=== PATIENT | male | born 1965 | race Caucasian/White ===

== ENCOUNTER 2022-11-27 16:46 | Inpatient (IN) ==
[2022-11-27] MEDS ORDERED: SODIUM CHLORIDE 0.9% 1000ML 1,000 ML IV STA (17:12)
[2022-11-27 17:23] LABS: Basophils # (auto) 0.01 K/uL (0-0.2); Basophils % (auto) 0.1 %; Hematocrit (blood only) 47.1 % (42.0-52.0); Hemoglobin 15.7 g/dl (14.0-18.0); Immature Granulocytes # (auto) 0.04 K/uL (0.01-0.20); Immature Granulocytes % (auto) 0.5 %; Lymphocytes % (auto) 9.1 %; Mean Corpuscular Hemoglobin 30.4 pg (25.0-34.0); Mean Corpuscular Hgb Conc 33.3 g/dL (32.0-36.0); Mean Corpuscular Volume 91.3 fL (80.0-100.0); Mean Platelet Volume 12.3 fL (9.4-12.4); Monocytes # (auto) 0.52 K/uL (0.11-0.59); Monocytes % (auto) 5.9 %; Neutrophils # (auto) 7.38 K/uL (1.40-6.50); Neutrophils % (auto) 84.4 %; Platelet Count 190 K/uL (130-400); RDW Coefficient of Variation 14.3 % (11.5-14.5); Red Blood Count 5.16 M/uL (4.70-6.10); White Blood Count 8.75 K/ul (4.8-10.8)
[2022-11-27 17:39] LABS: iSTAT Creatinine 2.1 mg/dl (0.6-1.3); iSTAT Hemoglobin 16.7 g/dl (14.0-18.0); iSTAT Ionized Calcium 1.25 mmol/l (1.12-1.32); iSTAT Potassium 4.5 mmol/L (3.3-5.0)
[2022-11-27] MEDS ORDERED: MoRPHine SULFATE 4 MG/ML 1 ML CARP\\VIAL IV STA (17:45)
[2022-11-27] MEDS ORDERED: ONDANSETRON INJ 2 MG/ML 2 ML VIAL IV STA (17:45)
[2022-11-27] MEDS ORDERED: PIPERACILLIN/TAZOBACTAM 4.5 GM/120 ML BAG IV ONE (17:45)
[2022-11-27 17:46] LABS: Albumin Level 4.4 gm/dl (3.4-5.0); Bilirubin,Total 1.1 mg/dl (0.2-1.0); Calcium 10.3 mg/dl (8.5-10.1); Potassium 4.5 mmol/L (3.5-5.1)
[2022-11-27 17:52] LABS: Albumin Globulin Ratio 1.5 (0.9-2); BUN Creatinine Ratio 23.5 (10-20); Creatinine Clr Calc Pharmacy 50.4 ml/min; Est GFR (African American) 47.4 ml/min; Est GFR (Non-African American) 40.9 ml/min; Total Protein 7.4 gm/dl (6.0-8.3)
--- NOTE | 2022-11-27 17:52 | Emergency Department Note ---
Impression & Plan Incarcerated ventral hernia, SBO (small bowel obstruction), OLEKSANDR (acute kidney injury) ED Provider Note NAME: JUAN FRANCISCO [id number] FOREST AGE: 56 SEX: M : 1965 ARRIVES VIA: Ambulance INFORMANT: Patient, ED PROVIDER(S): Rosalio Romero DO CHIEF COMPLAINT: Abdominal pain HPI: The patient is a 56-year-old male who presented to the emergency department for an evaluation of abdominal pain nausea vomiting. The patient states the pain began today. He has a history of an abdominal wall hernia on the right upper quadrant. This is been present for many years. He states over the last 24 hours he has been unable to reduce the hernia. He states he is normally able to reduce the hernia on his own. He was sent to the emergency department from [facility]. He denies having any fever. He denies having any hematemesis. ROS: See above HPI for pertinent positives & negatives. A total of 10 systems reviewed and were otherwise negative. PAST MEDICAL HISTORY: See Below PAST SURGICAL HISTORY: See Below FAMILY HISTORY: See Below SOCIAL HISTORY: See Below HOME MEDICATIONS: See Below ALLERGIES: See Below VITALS: See Below PHYSICAL EXAMINATION: GENERAL: The patient is awake and alert. He appears somewhat uncomfortable. EYES: The conjunctivae are clear. The pupils are round and reactive. EARS, NOSE, MOUTH AND THROAT: The nose is without any evidence of any deformity. NECK: The neck is nontender and supple. RESPIRATORY: Normal respiratory effort is noted there is no evidence of wheezing rhonchi or rales CARDIOVASCULAR: Regular rate and rhythm noted there no murmurs rubs or gallops normal S1 normal S2. GASTROINTESTINAL: The abdomen is soft but mildly distended. There is a nonreducible hernia in the right upper quadrant. This is very tender. There is no overlying skin changes. MUSCULOSKELETAL/EXTREMITIES: There is no evidence of gross deformity full range of motion is noted in the hips and shoulders. SKIN: There is no obvious evidence of any rash. There are no petechiae, pallor or cyanosis noted. NEUROLOGIC: Patient is awake alert and oriented x3 MEDICAL DECISION MAKING: The patient is a 56-year-old male who presented to the emergency department for an evaluation of abdominal pain nausea vomiting. The patient noticed upper abdominal pain in an area where he has a known ventral wall hernia. He has been able to reduce the hernia. The patient states he has had the hernia unable to be reduced for 24 hours. The patient had a history of physical exam consistent with incarcerated hernia. This was illustrated on CT of the abdomen and pelvis. He was treated with IV fluids and IV pain medication. He was also given IV antibiotics. An NG tube was placed after CT showed signs of high-grade small bowel obstruction. After he was medicated with pain medication I was able to reduce the hernia with gentle pressure. I discussed patient's condition with the on-call general surgeon as well as the on-call [facility] hospitalist. They have agreed to evaluate the patient in the emergency department for further management and disposition. Triage Nursing notes reviewed. Prior medical records reviewed Vital Signs: reviewed and remarkable for no significant abnormalities Differential diagnosis: Etiologies such as appendicitis, diverticulitis, obstruction, inflammatory bowel disease, renal colic, PUD, biliary pathology, pancreatitis, mesenteric ischemia, aortic pathology, infections, genitourinary, UTI, perforated viscus, as well as others were entertained. ER treatment provided: See below Diagnostics interpreted by me: ECG: none Cardiac Monitoring: An order was placed for continuous cardiac monitoring. The monitor shows a rate of 70 bpm with sinus rhythm. Laboratory studies: As stated above and show below. Imaging studies: See below. Radiographic imaging was reviewed by myself Consultation(s): I discussed this case with Dr. Ledesma who is on-call for the general surgical group. I discussed this case with Marko who is on for the [facility] Hospitalist group. ED COURSE: Procedures: After the patient received IV pain medication he was laying in the supine position. Pressure was applied against the hernia. There was a reduction noted of the hernia. The patient still has continued pain. X-ray for NG tube placement is pending. Past Med/Surg History Surgical History History of cholecystectomy Social History Smoking Status: Former smoker Preferred Language: Belarusian Feels Safe at Home: Yes Allergies Allergies Allergy/AdvReac Type Severity Reaction Status Date / Time No Known Allergies Allergy Unverified 11/27/22 19:48 Home Meds Home Medications Medication Instructions Recorded Confirmed Crestor 5 mg PO DAILY 11/27/22 11/27/22 carvedilol 12.5 mg tablet 12.5 mg PO BID 11/27/22 11/27/22 chlorthalidone 50 mg tablet 50 mg PO DAILY 11/27/22 11/27/22 lisinopril 40 mg tablet 40 mg PO DAILY 11/27/22 11/27/22 omeprazole 40 mg capsule,delayed 40 mg PO DAILY 11/27/22 11/27/22 release potassium chloride 20 mEq 20 meq PO BID 11/27/22 11/27/22 tablet,extended release(part/cryst) Results & Data (ED) Vital Signs Vital Signs - 24 hr 11/27/22 17:02 11/27/22 17:00 11/27/22 18:00 Temperature 37.0 C Temperature Source Oral Pulse Rate 70 70 69 Pulse Rate from SpO2 Sensor 69 68 Respiratory Rate 18 20 18 Respiratory Depth Normal Blood Pressure 107/83 107/83 121/76 Blood Pressure Mean 91 91 91 Pulse Oximetry 96 94 84 L Oxygen Delivery Method Room Air Room Air Oxygen Flow Rate Sepsis Recent Fever Within 48 Hours No Sepsis New/Unexplained Change in Mental Status N/A Sepsis Action Taken by Nursing No Action Required 11/27/22 18:05 11/27/22 18:30 11/27/22 19:27 Temperature Temperature Source Pulse Rate 70 Pulse Rate from SpO2 Sensor 70 Respiratory Rate 24 16 Respiratory Depth Blood Pressure 118/77 Blood Pressure Mean 90 Pulse Oximetry 95 93 97 Oxygen Delivery Method Nasal Cannula Nasal Cannula Nasal Cannula Oxygen Flow Rate 2 2 2 Sepsis Recent Fever Within 48 Hours Sepsis New/Unexplained Change in Mental Status Sepsis Action Taken by Jail Medications Current Medication List: was personally reviewed by me Laboratory Data Attestation: I reviewed the patient's lab results. 11/27/22 17:00 11/27/22 17:00 Lab Results 11/27/22 11/27/22 11/27/22 Range/Units 17:00 17:00 17:26 WBC 8.75 (4.8-10.8) K/ul RBC 5.16 (4.70-6.10) M/uL Hgb 15.7 (14.0-18.0) g/dl POC Hgb 16.7 (14.0-18.0) g/dl Hct 47.1 (42.0-52.0) % POC Hct 49 (42-52) % MCV 91.3 (80.0-100.0) fL MCH 30.4 (25.0-34.0) pg MCHC 33.3 (32.0-36.0) g/dL RDW Std Deviation 48.0 H (36.4-46.3) fL RDW Coeff of Chivo 14.3 (11.5-14.5) % Plt Count 190 (130-400) K/uL MPV 12.3 (9.4-12.4) fL Immature Gran % (Auto) 0.5 % Neut % (Auto) 84.4 % Lymph % (Auto) 9.1 % Arthur % (Auto) 5.9 % Eos % (Auto) 0.0 % Baso % (Auto) 0.1 % Neut # (Auto) 7.38 H (1.40-6.50) K/uL Lymph # (Auto) 0.80 L (1.2-3.4) K/uL Arthur # (Auto) 0.52 (0.11-0.59) K/uL Eos # (Auto) 0.00 (0-0.50) K/uL Baso # (Auto) 0.01 (0-0.2) K/uL Immature Gran # (Auto) 0.04 (0.01-0.20) K/uL POC Sodium 138 (135-144) mmol/L Sodium 137 (136-145) mmol/L POC Potassium 4.5 (3.3-5.0) mmol/L Potassium 4.5 (3.5-5.1) mmol/L POC Chloride 100 L (101-112) mmol/L Chloride 101 (98-107) mmol/L Carbon Dioxide 27 (21-32) mmol/L POC Total CO2 27 (24-31) mmol/L Anion Gap 9 (3-11) POC Anion Gap 17.0 (16-25) mmol/L POC BUN 43 H (7-18) mg/dl BUN 43 H (6-23) mg/dl Creatinine 1.83 H (0.6-1.4) mg/dl POC Creatinine 2.1 H (0.6-1.3) mg/dl Est Cr Clr Drug Dosing 50.4 ml/min Est GFR ( Amer) 47.4 ml/min Est GFR (Non-Af Amer) 40.9 ml/min BUN/Creatinine Ratio 23.5 H (10-20) Glucose 128 H (70-99(Fasting)) mg/dl POC Glucose (other) 126 H (70-99) mg/dl Calcium 10.3 H (8.5-10.1) mg/dl POC Ioniz Calcium Mazin 1.25 (1.12-1.32) mmol/l Total Bilirubin 1.1 H (0.2-1.0) mg/dl AST 18 (13-39) U/L ALT 20 (7-52) U/L Alkaline Phosphatase 58 (34-104) U/L Total Protein 7.4 (6.0-8.3) gm/dl Albumin 4.4 (3.4-5.0) gm/dl Globulin 3.0 (2.5-4.0) gm/dl Albumin/Globulin Ratio 1.5 (0.9-2) Lipase 11 (11-82) U/L SARS-CoV-2, RNA, NAAT (NEGATIVE) 11/27/22 Range/Units 19:00 WBC (4.8-10.8) K/ul RBC (4.70-6.10) M/uL Hgb (14.0-18.0) g/dl POC Hgb (14.0-18.0) g/dl Hct (42.0-52.0) % POC Hct (42-52) % MCV (80.0-100.0) fL MCH (25.0-34.0) pg MCHC (32.0-36.0) g/dL RDW Std Deviation (36.4-46.3) fL RDW Coeff of Chivo (11.5-14.5) % Plt Count (130-400) K/uL MPV (9.4-12.4) fL Immature Gran % (Auto) % Neut % (Auto) % Lymph % (Auto) % Arthur % (Auto) % Eos % (Auto) % Baso % (Auto) % Neut # (Auto) (1.40-6.50) K/uL Lymph # (Auto) (1.2-3.4) K/uL Arthur # (Auto) (0.11-0.59) K/uL Eos # (Auto) (0-0.50) K/uL Baso # (Auto) (0-0.2) K/uL Immature Gran # (Auto) (0.01-0.20) K/uL POC Sodium (135-144) mmol/L Sodium (136-145) mmol/L POC Potassium (3.3-5.0) mmol/L Potassium (3.5-5.1) mmol/L POC Chloride (101-112) mmol/L Chloride (98-107) mmol/L Carbon Dioxide (21-32) mmol/L POC Total CO2 (24-31) mmol/L Anion Gap (3-11) POC Anion Gap (16-25) mmol/L POC BUN (7-18) mg/dl BUN (6-23) mg/dl Creatinine (0.6-1.4) mg/dl POC Creatinine (0.6-1.3) mg/dl Est Cr Clr Drug Dosing ml/min Est GFR ( Amer) ml/min Est GFR (Non-Af Amer) ml/min BUN/Creatinine Ratio (10-20) Glucose (70-99(Fasting)) mg/dl POC Glucose (other) (70-99) mg/dl Calcium (8.5-10.1) mg/dl POC Ioniz Calcium Mazin (1.12-1.32) mmol/l Total Bilirubin (0.2-1.0) mg/dl AST (13-39) U/L ALT (7-52) U/L Alkaline Phosphatase (34-104) U/L Total Protein (6.0-8.3) gm/dl Albumin (3.4-5.0) gm/dl Globulin (2.5-4.0) gm/dl Albumin/Globulin Ratio (0.9-2) Lipase (11-82) U/L SARS-CoV-2, RNA, NAAT NEGATIVE (NEGATIVE) Administered Medications Hydromorphone HCl (Hydromorphone Inj 0.5 Mg/0.5 Ml Syr) 0.5 mg IV Q15M PRN PRN Reason: Pain Stop: 12/11/22 18:33 Last Admin: 11/27/22 18:44 Dose: 0.5 mg Documented By: MT Discontinued Medications Sodium Chloride (Nss 1000ml) 1,000 mls @ 999 mls/hr IV .Q1H1M STA Stop: 11/27/22 18:12 Last Infusion: 11/27/22 19:31 Dose: 0 mls/hr Documented By: Admin: 11/27/22 18:24 Dose: 999 mls/hr Documented By: VANESSA Piperacillin Sod/Tazobactam Sod (Zosyn) 4.5 gm in 120 mls @ 240 mls/hr IV NOW ONE Stop: 11/27/22 18:14 Last Infusion: 11/27/22 19:31 Dose: 0 mls/hr Documented By: Admin: 11/27/22 18:24 Dose: 240 mls/hr Documented By: VANESSA Morphine Sulfate (Morphine Sulfate 4 Mg/Ml 1 Ml Carp\Vial) 4 mg IV NOW STA Stop: 11/27/22 17:46 Last Admin: 11/27/22 18:03 Dose: 4 mg Documented By: VANESSA Ondansetron HCl (Ondansetron Inj 2 Mg/Ml 2 Ml Vial) 4 mg IV NOW STA Stop: 11/27/22 17:46 Last Admin: 11/27/22 18:03 Dose: 4 mg Documented By: VANESSA Imaging Data Radiologist's Impression: Abdomen/Pelvis CT 11/27/22 17:[address] WITHOUT CONTRAST CT DOSE: 934.84 mGy.cm HISTORY: Generalized abdominal pain. hernia TECHNIQUE: Multiaxial CT images of the abdomen and pelvis were performed without contrast. A dose lowering technique was utilized adhering to the principles of ALARA. COMPARISON STUDY: None. FINDINGS: Within the right mid anterior abdominal wall there is a hernia through the rectus abdominous muscle which contains a short segment of a decompressed ileal loop. This may be at a prior incision site. The neck of the hernia is approximately 3.3 cm. The hernia sac measures 5.8 cm and also contains fluid. Proximal to this the small bowel is significantly distended and fluid-filled measuring up to 4.5 cm in diameter. The ileal loops distal to the hernia site are significantly decompressed. Therefore, this is consistent with a high-grade small bowel obstruction secondary to the incarcerated right mid abdominal wall hernia. Colonic diverticulosis. No evidence for acute diverticulitis. Normal appendix. The bladder is unremarkable. There is a small fat-containing right inguinal hernia. The stomach is also distended and fluid-filled from the small bowel obstruction. Trace mesenteric edema/fluid is seen adjacent to the distended loops of small bowel. No pneumoperitoneum or pneumatosis. Mild dependent changes seen within the lung bases. Bilateral L5 spondylolysis with associated anterolisthesis. Cholecystectomy. The unenhanced liver, spleen, left adrenal gland, and pancreas are unremarkable. Single punctate stone seen within the bilateral kidneys. No ureteral stones. No hydronephrosis. Normal caliber abdominal aorta. No retroperitoneal lymphadenopathy. There is a left retroareolar renal vein. Distended common bile duct is likely due to the patient's postcholecystectomy state. There is a 6.4 cm diverticulum at the third portion of the duodenum. There is a 1.2 cm adrenal gland nodule which favors a benign adenoma. IMPRESSION: 1. High-grade small bowel obstruction secondary to an incarcerated short segment of distal small bowel within the right anterior abdominal wall hernia as described above. 2. Bilateral nephrolithiasis. No hydronephrosis. 3. Cholecystectomy. 4. Additional findings as described above. ACT 112: Negative or not required by law. Electronically signed by: Wesley Bonilla M.D. 11/27/2022 6:50 PM Chest X-Ray 11/27/22 18:35 XR chest 1V portable HISTORY: Generalized abdominal pain. NG tube placement. COMPARISON: Abdomen and pelvis CT 11/27/2022. FINDINGS: Mild dependent changes again noted at the lung bases. No pneumothorax. No pleural effusions. The cardiac silhouette is borderline enlarged. Nasogastric tube terminates in the stomach. IMPRESSION: The nasogastric tube terminates in the stomach. ACT 112: Negative or not required by law. Electronically signed by: Wesley Bonilla M.D. 11/27/2022 7:42 PM Discharge Plan Visit Data Chief Complaint: Abdominal Pain ED Provider: Rosalio Romero Discharge Problem: Incarcerated ventral hernia, SBO (small bowel obstruction), OLEKSANDR (acute kidney injury) Patient Disposition: Being Evaluated by Hospitalist Forms Stand Alone Forms: [employer] [facility] Prescriptions Prescriptions: No Action carvedilol 12.5 mg Tablet 12.5 mg PO BID Rx Instructions: must administer with a meal/food chlorthalidone [Hygroton] 50 mg Tablet 50 mg PO DAILY omeprazole 40 mg Capsule,Delayed Release(Dr/Ec) 40 mg PO DAILY potassium chloride [K-Dur] 20 mEq Tablet,Er Particles/Crystals 20 meq PO BID lisinopril 40 mg Tablet 40 mg PO DAILY Crestor 5 mg PO DAILY Referrals Referrals: Ashwin HERNANDEZ [Primary Care Provider] -
[2022-11-27] MEDS ORDERED: HYDROmorphone INJ 0.5 MG/0.5 ML SYR IV PRN (18:34)
--- NOTE | 2022-11-27 18:51 | CT Scan Report ---
ABDOMEN AND PELVIS CT WITHOUT CONTRAST CT DOSE: 934.84 mGy.cm HISTORY: Generalized abdominal pain. hernia TECHNIQUE: Multiaxial CT images of the abdomen and pelvis were performed without contrast. A dose lo wering technique was utilized adhering to the principles of ALARA. COMPARISON STUDY: None. FINDINGS: Within the right mid anterior abdominal wall there is a hernia through the rectus abdominou s muscle which contains a short segment of a decompressed ileal loop. This may be at a prior incision site. The neck of the hernia is approximately 3.3 cm. The hernia sac measures 5.8 cm and also contai ns fluid. Proximal to this the small bowel is significantly distended and fluid-filled measuring up t o 4.5 cm in diameter. The ileal loops distal to the hernia site are significantly decompressed. There fore, this is consistent with a high-grade small bowel obstruction secondary to the incarcerated righ t mid abdominal wall hernia. Colonic diverticulosis. No evidence for acute diverticulitis. Normal kristofer endix. The bladder is unremarkable. There is a small fat-containing right inguinal hernia. The stomac h is also distended and fluid-filled from the small bowel obstruction. Trace mesenteric edema/fluid i s seen adjacent to the distended loops of small bowel. No pneumoperitoneum or pneumatosis. Mild depen dent changes seen within the lung bases. Bilateral L5 spondylolysis with associated anterolisthesis. Cholecystectomy. The unenhanced liver, spleen, left adrenal gland, and pancreas are unremarkable. Sin gle punctate stone seen within the bilateral kidneys. No ureteral stones. No hydronephrosis. Normal c aliber abdominal aorta. No retroperitoneal lymphadenopathy. There is a left retroareolar renal vein. Distended common bile duct is likely due to the patient's postcholecystectomy state. There is a 6.4 c m diverticulum at the third portion of the duodenum. There is a 1.2 cm adrenal gland nodule which fav ors a benign adenoma. IMPRESSION: 1. High-grade small bowel obstruction secondary to an incarcerated short segment of distal small nya l within the right anterior abdominal wall hernia as described above. 2. Bilateral nephrolithiasis. No hydronephrosis. 3. Cholecystectomy. 4. Additional findings as described above. ACT 112: Negative or not required by law. Electronically signed by: Wesley Bonilla M.D. 11/27/2022 6:50 PM
--- NOTE | 2022-11-27 19:39 | History & Physical Report ---
Date of Service November 27, 2022 Assessment & Plan (1) SBO (small bowel obstruction): Plan: -Admit to the PCU/tele -The patient is currently afebrile, hemodynamically stable and stable on RA -Patient came to the ED with 24 hours of abdominal pain and his known right abdominal hernia was no longer reducible -CT of the abd/pelvis WO contrast showed a "incarcerated short segment of distal small bowel within the right anterior abdominal wall" causing a high-grade SBO -S/P NG tube placement with almost an entire canister of drainage -Patient's symptoms are somewhat improved compared to arrival after NG placement, will continue with NG in place -ED staff believes they successfully reduced his hernia after enough analgesia, will touch base with surgery after they evaluate the patient -Surgery has been consulted and will follow -Was started on Zosyn in the ED, will continue for now -Received 1L NSS in the ED, will continue with LR at 100 mL/hr x 2 bags on admission, continue with IV fluids while NPO -Keep NPO except meds for now -IV tylenol for pain of 1,2,3. 1 mg IV morphine q2h prn for pain of 4,5,6+ -Will obtain STAT lactate and procal -Monitor on tele/pulse oximetry -AM CBC, CMP, Mag -Will start with SCDs for DVT PPX for now until we know if he is going to the OR (2) HTN (hypertension): Plan: -Hemodynamically stable -Hold all antihypertensives at this time as he is NPO and want to avoid hypotension -May need IV antihypertensives while NPO (3) Hyperlipidemia: Plan: -Hold statin while NPO (4) GERD (gastroesophageal reflux disease): Plan: -Hold omeprazole while NPO -Will switch to Plan The patient was seen with and discussed with Dr. Rahman at the time of the admission History of Present Illness Chief Complaint: Abdominal pain Primary Care Provider: [facility] Eladio Palomino is a 56 year old male with a PMH significant for HTN, hyperlipidemia, GERD, and known RUQ abdominal hernia who presented to the [facility] ED from [facility] due to abdominal pain. Per the ED staff, the patient has a known abdominal wall hernia in the RUQ. He is typically able to easily reduce the hernia. Approximately 24 hours ago he developed severe abdominal pain and was unable to reduce his hernia. In the ED the patient was found to be afebrile, hemodynamically stable, and hypoxic at 84% NC. Labs were remarkable for a WBC WNL, stable hgb at 15.7, stable platelets at 190, cr of 1.83 (no previous records for a baseline), calcium of 10.3, otherwise stable electrolytes, total bili of 1.1 otherwise LFTs WNL, and lipase of 11. CT of the abdomen/pelvis WO con was read as 1. High-grade small bowel obstruction secondary to an incarcerated short segment of distal small bowel within the right anterior abdominal wall hernia as described above. 2. Bilateral nephrolithiasis. No hydronephrosis. 3. Cholecystectomy. 4. Additional findings as described above.. Prior to admission the patient was given a 1L NSS bolus, 4mg IV Zofran, one dose of Zosyn, 4 mg IV morphine, and 0.5 mg IV dilaudid. The ED staff attempted to reduce the hernia after multiple doses of analgesia and were successful. General Surgery was consulted and recommended hospital admission, they will come evaluate to see the need to take him to the OR. At the time of the exam the patient was sitting in bed in acute distress due to his abdominal pain. A the start of the exam the patient has having an NG tube placed by the nursing staff. He states that he began to experience abdominal pain, nausea, and vomiting last night. He noticed that his right abdominal hernia was more enlarged, painful, and was unable to be reduced. His abdominal pain is currently a 10/10, his last bowel movement was this morning. He denies recent fever, chills, chest pain, SOB, dysuria, hematuria, and recent trauma. When asked, he does not think that he aspirated with his episodes of vomit. He has not had any of his medications since yesterday due to his symptoms. We discussed code status, he wishes to be a Full Code. Please refer to Dr. Rahman's attestation for any changes to the treatment plan Allergies Allergy/AdvReac Type Severity Reaction Status Date / Time No Known Allergies Allergy Unverified 11/27/22 19:48 Home Medications Medication Instructions Recorded Confirmed Type Crestor 5 mg PO DAILY 11/27/22 11/27/22 History carvedilol 12.5 mg tablet 12.5 mg PO BID 11/27/22 11/27/22 History chlorthalidone 50 mg tablet 50 mg PO DAILY 11/27/22 11/27/22 History lisinopril 40 mg tablet 40 mg PO DAILY 11/27/22 11/27/22 History omeprazole 40 mg capsule,delayed 40 mg PO DAILY 11/27/22 11/27/22 History release potassium chloride 20 mEq 20 meq PO BID 11/27/22 11/27/22 History tablet,extended release(part/cryst) Past Med/Surg History Surgical History History of cholecystectomy Social History Smoking Status: Former smoker Second Hand Exposure: No; Do You Dip or Chew Tobacco: No; Tobacco Cessation Education Requested by Patient: No Hx Alcohol Use: No Hx Substance Use: No Preferred Language: Yoruba Communication Ability: Effective Video Conference Specialist Required: No Beliefs That Will Affect Care: None Current Living Situation: Other Current Living Situation Comment: [facility] Other Information That Helps Us Care for You: No Feels Safe at Home: Yes Safety Concerns: Feels Safe At This Time Assistive Devices: None Review of Systems Review of Systems: Denies current fever, chills, headache, changes in vision, hearing, taste, and smell, chest pain, SOB, cough, diarrhea, hematemesis, melena, dysuria, hematuria, and recent falls. All systems have been reviewed and are otherwise negative. Physical Exam Physical Exam: Physical Exam: General: In acute distress, stated age, he does appear acutely ill HEENT: Normocephalic, atraumatic, no scleral icterus, pupils around round, symmetrical, and reactive to light, patient now with NG tube in place and drain large quantities of bilious fluid, moist mucus membranes, trachea midline, no thyromegaly Chest/Pulm: No respiratory distress, symmetrical chest expansion, clear breath sounds throughout Cardiac: RRR, no murmurs noted Abdomen: Abdomen is distended, firm, previous incarcerated hernia appears to have been reduced by the ED staff, hypoactive bowel sounds, patient is tedner to palpation throughout Musculoskeletal: Symmetrical and without signs of acute trauma, upper and lower extremities with full ROM, no atrophy, spasticity, or flaccidity Extremities: Radial, dorsalis pedis, and posterior tibial pulses are intact and symmetrical, no edema noted in the BL LE's Skin: Warm, dry, no rashes , lesions, or scars noted Neuro: Alert and oriented to person, place, month, no focal defects, no tremors noted Psych: In acute distress but cooperative during the exam Results & Data Results & Data ([facility]) Vital Signs (Past 12 Hours) Vital Signs Temp Pulse Resp BP Pulse Ox O2 Del Method O2 Flow Rate 11/27/22 19:27 97 Nasal Cannula 2 11/27/22 18:30 70 16 118/77 93 Nasal Cannula 2 11/27/22 18:05 24 95 Nasal Cannula 2 11/27/22 18:00 69 18 121/76 84 L Room Air 11/27/22 17:00 70 20 107/83 94 11/27/22 17:02 37.0 C 70 18 107/83 96 Room Air Laboratory Results Abnormal lab results 11/27/22 11/27/22 11/27/22 Range/Units 17:00 17:00 17:26 RDW Std Deviation 48.0 H (36.4-46.3) fL Neut # (Auto) 7.38 H (1.40-6.50) K/uL Lymph # (Auto) 0.80 L (1.2-3.4) K/uL POC Chloride 100 L (101-112) mmol/L POC BUN 43 H (7-18) mg/dl BUN 43 H (6-23) mg/dl Creatinine 1.83 H (0.6-1.4) mg/dl POC Creatinine 2.1 H (0.6-1.3) mg/dl BUN/Creatinine Ratio 23.5 H (10-20) Glucose 128 H (70-99(Fasting)) mg/dl POC Glucose (other) 126 H (70-99) mg/dl Calcium 10.3 H (8.5-10.1) mg/dl Total Bilirubin 1.1 H (0.2-1.0) mg/dl Diagnostic Findings Abdomen/Pelvis CT 11/27/22 17:[address] WITHOUT CONTRAST CT DOSE: 934.84 mGy.cm HISTORY: Generalized abdominal pain. hernia TECHNIQUE: Multiaxial CT images of the abdomen and pelvis were performed without contrast. A dose lowering technique was utilized adhering to the principles of ALARA. COMPARISON STUDY: None. FINDINGS: Within the right mid anterior abdominal wall there is a hernia through the rectus abdominous muscle which contains a short segment of a decompressed ileal loop. This may be at a prior incision site. The neck of the hernia is approximately 3.3 cm. The hernia sac measures 5.8 cm and also contains fluid. Proximal to this the small bowel is significantly distended and fluid-filled measuring up to 4.5 cm in diameter. The ileal loops distal to the hernia site are significantly decompressed. Therefore, this is consistent with a high-grade small bowel obstruction secondary to the incarcerated right mid abdominal wall hernia. Colonic diverticulosis. No evidence for acute diverticulitis. Normal appendix. The bladder is unremarkable. There is a small fat-containing right inguinal hernia. The stomach is also distended and fluid-filled from the small bowel obstruction. Trace mesenteric edema/fluid is seen adjacent to the distended loops of small bowel. No pneumoperitoneum or pneumatosis. Mild dependent changes seen within the lung bases. Bilateral L5 spondylolysis with associated anterolisthesis. Cholecystectomy. The unenhanced liver, spleen, left adrenal gland, and pancreas are unremarkable. Single punctate stone seen within the bilateral kidneys. No ureteral stones. No hydronephrosis. Normal caliber abdominal aorta. No retroperitoneal lymphadenopathy. There is a left retroareolar renal vein. Distended common bile duct is likely due to the patient's postcholecystectomy state. There is a 6.4 cm diverticulum at the third portion of the duodenum. There is a 1.2 cm adrenal gland nodule which favors a benign adenoma. IMPRESSION: 1. High-grade small bowel obstruction secondary to an incarcerated short segment of distal small bowel within the right anterior abdominal wall hernia as described above. 2. Bilateral nephrolithiasis. No hydronephrosis. 3. Cholecystectomy. 4. Additional findings as described above. ACT 112: Negative or not required by law. Electronically signed by: Wesley Bonilla M.D. 11/27/2022 6:50 PM Chest X-Ray 11/27/22 18:35 XR chest 1V portable HISTORY: Generalized abdominal pain. NG tube placement. COMPARISON: Abdomen and pelvis CT 11/27/2022. FINDINGS: Mild dependent changes again noted at the lung bases. No pneumothorax. No pleural effusions. The cardiac silhouette is borderline enlarged. Nasogastric tube terminates in the stomach. IMPRESSION: The nasogastric tube terminates in the stomach. ACT 112: Negative or not required by law. Electronically signed by: Wesley Bonilla M.D. 11/27/2022 7:42 PM ECG Additional Comments: No ECG available at the time of the admission, will obtain one STAT Code Status & VTE Plan Code Status Code status VTE Prophylaxis Plan VTE Prophylaxis will be ordered: Yes Supervising Physician Co-Signing Physician Notes Patient seen and examined, chart reviewed, case discussed with KENNETH Jamison and I agree with the assessment and plan as above. In brief, patient is a 56yo male with high grade SBO, incarcerated ventral hernia which was reduced in the ER. NGT placed to wall suction with large amount of liquid output - patient's pain, distention and nausea improving On exam he is ill in appearance, mild distress secondary to recent NGT placement Skin - intact, no rash HEENT - NC/AT, PERRL, MMM, NGT in place Heart - +S1/S2, regular Lungs - CTA anteriorly Abd - distended, diminished bowel sounds, tender to palpation in right mid abdomen, hernia reduced Ext - warm, well perfused Labs and images reviewed Assessment/Plan -Maintain NGT to LIWS -Appreciate General Surgery assistance -Pain control, anti-emetics -Empiric Zosyn for now (consider DC after 24 hours) -Remainder as above PG Care Time/CCT Total # of Minutes Spent Total Time Spent with Patient: Total time spent is greater than 50% in coordination of care (as documented) at patient's floor/unit and/or counseling patient: C[place] [address] INT INP/OBS CARE 3/75MIN Patient Type Established Medical Decision Making High Complexity Diagnoses SBO (small bowel obstruction) K56.609 HTN (hypertension) I10 Hyperlipidemia E78.5 GERD (gastroesophageal reflux disease) K21.9
[2022-11-27] MEDS ORDERED: MoRPHine SULFATE 2 MG/ML CARP IV PRN (19:41)
[2022-11-27] MEDS ORDERED: ACETAMINOPHEN 1,000 MG/100 ML VIAL IV PRN (19:41)
--- NOTE | 2022-11-27 19:43 | XRay Report ---
XR chest 1V portable HISTORY: Generalized abdominal pain. NG tube placement. COMPARISON: Abdomen and pelvis CT 11/27/2022. FINDINGS: Mild dependent changes again noted at the lung bases. No pneumothorax. No pleural effusions . The cardiac silhouette is borderline enlarged. Nasogastric tube terminates in the stomach. IMPRESSION: The nasogastric tube terminates in the stomach. ACT 112: Negative or not required by law. Electronically signed by: Wesley Bonilla M.D. 11/27/2022 7:42 PM
--- NOTE | 2022-11-27 20:13 | Surgery Consultation ---
Date of Consultation November 27, 2022 Assessment & Plan (1) SBO (small bowel obstruction): secondary to incarcerated ventral hernia right mid abdomen. Now reduced. Bowel obstruction should hopefully start to resolve in next 1-2 days. Agree with ng tube to decompress, discussed pushing hernia back in if it pops out, agree with IVF and bowel rest. If bowel obstruction improves, could consider elective repair of hernia to prevent the same from occurring again. History of Present Illness Reason for Consultation: incarcerated ventral hernia Requesting Physician: Stephen Romero MD History of Present Illness 56 yr old man with right mid abdominal ventral hernia which developed following a lap cholecystectomy. Has always been reducible. About 1 day prior, no longer able to reduce. Developed more intense pain at hernia site, nausea, abdominal bloating, abdominal pain. CT scan showed small bowel obstruction caused by incarcerated bowel loop. He was given IV pain medications and hernia was able to be reduced by Dr. Romero. NG tube placed given gastric distention. No prior episodes of incarceration of the hernia. Allergies Allergy/AdvReac Type Severity Reaction Status Date / Time No Known Allergies Allergy Unverified 11/27/22 19:48 Home Medications Medication Instructions Recorded Confirmed Type Crestor 5 mg PO DAILY 11/27/22 11/27/22 History carvedilol 12.5 mg tablet 12.5 mg PO BID 11/27/22 11/27/22 History chlorthalidone 50 mg tablet 50 mg PO DAILY 11/27/22 11/27/22 History lisinopril 40 mg tablet 40 mg PO DAILY 11/27/22 11/27/22 History omeprazole 40 mg capsule,delayed 40 mg PO DAILY 11/27/22 11/27/22 History release potassium chloride 20 mEq 20 meq PO BID 11/27/22 11/27/22 History tablet,extended release(part/cryst) Patient History Surgical History History of cholecystectomy Social History Smoking Status: Former smoker Preferred Language: Angolan Feels Safe at Home: Yes Review of Systems Review of Systems: All systems reviewed & are unremarkable except as noted in HPI & below Genitourinary: + problem reported (elevated Cr) Physical Exam Constitutional: WD/WN, vitals as above Respiratory: normal respiratory effort, lungs clear to auscultation Cardiovascular: RRR, no murmur, no edema Gastrointestinal (Abdomen): Inspection/Auscultation: + abdomen distended and + hypoactive bowel sounds Percussion/Palpation: + abdomen tender (at hernia site, fully reducible right ventral hernia present) and abdomen soft; no guarding Neurologic: awake; no focal motor deficits Psychiatric: A+Ox3, euthymic affect Results & Data ([facility]) Vital Signs (Past 12 Hours) Vital Signs Temp Pulse Resp BP Pulse Ox O2 Del Method O2 Flow Rate 11/27/22 19:27 97 Nasal Cannula 2 11/27/22 18:30 70 16 118/77 93 Nasal Cannula 2 11/27/22 18:05 24 95 Nasal Cannula 2 11/27/22 18:00 69 18 121/76 84 L Room Air 11/27/22 17:00 70 20 107/83 94 11/27/22 17:02 37.0 C 70 18 107/83 96 Room Air Laboratory Results 11/27/22 11/27/22 11/27/22 Range/Units 19:00 17:26 17:00 WBC (4.8-10.8) K/ul RBC (4.70-6.10) M/uL Hgb (14.0-18.0) g/dl POC Hgb 16.7 (14.0-18.0) g/dl Hct (42.0-52.0) % POC Hct 49 (42-52) % MCV (80.0-100.0) fL MCH (25.0-34.0) pg MCHC (32.0-36.0) g/dL RDW Std Deviation (36.4-46.3) fL RDW Coeff of Chivo (11.5-14.5) % Plt Count (130-400) K/uL MPV (9.4-12.4) fL Immature Gran % (Auto) % Neut % (Auto) % Lymph % (Auto) % [place] % (Auto) % Eos % (Auto) % Baso % (Auto) % Neut # (Auto) (1.40-6.50) K/uL Lymph # (Auto) (1.2-3.4) K/uL [place] # (Auto) (0.11-0.59) K/uL Eos # (Auto) (0-0.50) K/uL Baso # (Auto) (0-0.2) K/uL Immature Gran # (Auto) (0.01-0.20) K/uL POC Sodium 138 (135-144) mmol/L Sodium (136-145) mmol/L POC Potassium 4.5 (3.3-5.0) mmol/L Potassium (3.5-5.1) mmol/L POC Chloride 100 L (101-112) mmol/L Chloride (98-107) mmol/L Carbon Dioxide (21-32) mmol/L POC Total CO2 27 (24-31) mmol/L Anion Gap (3-11) POC Anion Gap 17.0 (16-25) mmol/L POC BUN 43 H (7-18) mg/dl BUN (6-23) mg/dl Creatinine (0.6-1.4) mg/dl POC Creatinine 2.1 H (0.6-1.3) mg/dl Est Cr Clr Drug Dosing ml/min Est GFR ( Amer) ml/min Est GFR (Non-Af Amer) ml/min BUN/Creatinine Ratio (10-20) Glucose (70-99(Fasting)) mg/dl POC Glucose (other) 126 H (70-99) mg/dl Calcium (8.5-10.1) mg/dl POC Ioniz Calcium Mazin 1.25 (1.12-1.32) mmol/l Total Bilirubin (0.2-1.0) mg/dl AST (13-39) U/L ALT (7-52) U/L Alkaline Phosphatase (34-104) U/L Total Protein (6.0-8.3) gm/dl Albumin (3.4-5.0) gm/dl Globulin (2.5-4.0) gm/dl Albumin/Globulin Ratio (0.9-2) Lipase (11-82) U/L Procalcitonin Pending SARS-CoV-2, RNA, NAAT NEGATIVE (NEGATIVE) 11/27/22 11/27/22 Range/Units 17:00 17:00 WBC 8.75 (4.8-10.8) K/ul RBC 5.16 (4.70-6.10) M/uL Hgb 15.7 (14.0-18.0) g/dl POC Hgb (14.0-18.0) g/dl Hct 47.1 (42.0-52.0) % POC Hct (42-52) % MCV 91.3 (80.0-100.0) fL MCH 30.4 (25.0-34.0) pg MCHC 33.3 (32.0-36.0) g/dL RDW Std Deviation 48.0 H (36.4-46.3) fL RDW Coeff of Chivo 14.3 (11.5-14.5) % Plt Count 190 (130-400) K/uL MPV 12.3 (9.4-12.4) fL Immature Gran % (Auto) 0.5 % Neut % (Auto) 84.4 % Lymph % (Auto) 9.1 % [place] % (Auto) 5.9 % Eos % (Auto) 0.0 % Baso % (Auto) 0.1 % Neut # (Auto) 7.38 H (1.40-6.50) K/uL Lymph # (Auto) 0.80 L (1.2-3.4) K/uL [place] # (Auto) 0.52 (0.11-0.59) K/uL Eos # (Auto) 0.00 (0-0.50) K/uL Baso # (Auto) 0.01 (0-0.2) K/uL Immature Gran # (Auto) 0.04 (0.01-0.20) K/uL POC Sodium (135-144) mmol/L Sodium 137 (136-145) mmol/L POC Potassium (3.3-5.0) mmol/L Potassium 4.5 (3.5-5.1) mmol/L POC Chloride (101-112) mmol/L Chloride 101 (98-107) mmol/L Carbon Dioxide 27 (21-32) mmol/L POC Total CO2 (24-31) mmol/L Anion Gap 9 (3-11) POC Anion Gap (16-25) mmol/L POC BUN (7-18) mg/dl BUN 43 H (6-23) mg/dl Creatinine 1.83 H (0.6-1.4) mg/dl POC Creatinine (0.6-1.3) mg/dl Est Cr Clr Drug Dosing 50.4 ml/min Est GFR ( Amer) 47.4 ml/min Est GFR (Non-Af Amer) 40.9 ml/min BUN/Creatinine Ratio 23.5 H (10-20) Glucose 128 H (70-99(Fasting)) mg/dl POC Glucose (other) (70-99) mg/dl Calcium 10.3 H (8.5-10.1) mg/dl POC Ioniz Calcium Mazin (1.12-1.32) mmol/l Total Bilirubin 1.1 H (0.2-1.0) mg/dl AST 18 (13-39) U/L ALT 20 (7-52) U/L Alkaline Phosphatase 58 (34-104) U/L Total Protein 7.4 (6.0-8.3) gm/dl Albumin 4.4 (3.4-5.0) gm/dl Globulin 3.0 (2.5-4.0) gm/dl Albumin/Globulin Ratio 1.5 (0.9-2) Lipase 11 (11-82) U/L Procalcitonin SARS-CoV-2, RNA, NAAT (NEGATIVE) Diagnostic Findings ABDOMEN AND PELVIS CT WITHOUT CONTRAST CT DOSE: 934.84 mGy.cm HISTORY: Generalized abdominal pain. hernia TECHNIQUE: Multiaxial CT images of the abdomen and pelvis were performed without contrast. A dose lowering technique was utilized adhering to the principles of ALARA. COMPARISON STUDY: None. FINDINGS: Within the right mid anterior abdominal wall there is a hernia through the rectus abdominous muscle which contains a short segment of a decompressed ileal loop. This may be at a prior incision site. The neck of the hernia is approximately 3.3 cm. The hernia sac measures 5.8 cm and also contains fluid. Proximal to this the small bowel is significantly distended and fluid-filled measuring up to 4.5 cm in diameter. The ileal loops distal to the hernia site are significantly decompressed. Therefore, this is consistent with a high-grade small bowel obstruction secondary to the incarcerated right mid abdominal wall hernia. Colonic diverticulosis. No evidence for acute diverticulitis. Normal appendix. The bladder is unremarkable. There is a small fat-containing right inguinal hernia. The stomach is also distended and fluid-filled from the small bowel obstruction. Trace mesenteric edema/fluid is seen adjacent to the distended loops of small bowel. No pneumoperitoneum or pneumatosis. Mild dependent changes seen within the lung bases. Bilateral L5 spondylolysis with associated anterolisthesis. Cholecystectomy. The unenhanced liver, spleen, left adrenal gland, and pancreas are unremarkable. Single punctate stone seen within the bilateral kidneys. No ureteral stones. No hydronephrosis. Normal caliber abdominal aorta. No retroperitoneal lymphadenopathy. There is a left retroareolar renal vein. Distended common bile duct is likely due to the patient's postcholecystectomy state. There is a 6.4 cm diverticulum at the third portion of the duodenum. There is a 1.2 cm adrenal gland nodule which favors a benign adenoma. IMPRESSION: 1. High-grade small bowel obstruction secondary to an incarcerated short segment of distal small bowel within the right anterior abdominal wall hernia as described above. 2. Bilateral nephrolithiasis. No hydronephrosis. 3. Cholecystectomy. 4. Additional findings as described above.
[2022-11-27] MEDS: LACTATED RINGER'S 1,000 ML IV SCH (21:42)
[2022-11-27] MEDS: PIPERACILLIN/TAZOBACTAM 3.375 GM in DEXTROSE 5% 100 ML IV SCH (22:33)
[2022-11-28] MEDS: PIPERACILLIN/TAZOBACTAM 3.375 GM in DEXTROSE 5% 100 ML IV SCH ×3 (06:22→22:32)
[2022-11-28 07:12] LABS: Appearance Urine Clear (Clear); Bacteria Urine Automated Negative (Negative); Blood Urine Negative (Negative); Color Urine Dark Yellow; Glucose Urine UA Negative (Negative); Ketones Urine Trace (Negative); Leukocyte Esterase Urine Negative (Negative); Nitrite Urine Negative (Negative); Protein Urine Trace (Negative); RBC Urine Automated 0-4 /hpf (0-4); Specific Gravity Urine 1.032 (1.000-1.030); Urobilinogen Urine Negative (Negative)
[2022-11-28 07:16] LABS: Bilirubin Urine 1+ (Negative)
[2022-11-28 07:20] LABS: Hematocrit (blood only) 43.2 % (42.0-52.0); Hemoglobin 14.2 g/dl (14.0-18.0); Mean Corpuscular Hemoglobin 30.7 pg (25.0-34.0); Mean Corpuscular Hgb Conc 32.9 g/dL (32.0-36.0); Mean Corpuscular Volume 93.5 fL (80.0-100.0); Mean Platelet Volume 11.9 fL (9.4-12.4); Platelet Count 155 K/uL (130-400); RDW Coefficient of Variation 14.7 % (11.5-14.5); RDW Standard Deviation 50.4 fL (36.4-46.3); Red Blood Count 4.62 M/uL (4.70-6.10); White Blood Count 4.33 K/ul (4.8-10.8)
--- NOTE | 2022-11-28 07:35 | Electrocardiogram Report ---
Test Reason : Blood Pressure : / mmHG Vent. Rate : 066 BPM Atrial Rate : 066 BPM P-R Int : 214 ms QRS Dur : 114 ms QT Int : 410 ms P-R-T Axes : 020 -18 -13 degrees QTc Int : 429 ms Sinus rhythm with 1st degree A-V block Voltage criteria for left ventricular hypertrophy Nonspecific ST abnormality Abnormal ECG No previous ECGs available Confirmed by Isra Deal ([id number]) on 11/28/2022 7:34:47 AM Referred By: [facility] Confirmed By:Girma Deal
[2022-11-28 07:49] LABS: Albumin Level 3.8 gm/dl (3.4-5.0); Bilirubin,Total 1.5 mg/dl (0.2-1.0); Calcium 9.5 mg/dl (8.5-10.1); Magnesium 1.8 mg/dl (1.7-2.4); Potassium 4.2 mmol/L (3.5-5.1)
[2022-11-28 07:55] LABS: Albumin Globulin Ratio 1.5 (0.9-2); BUN Creatinine Ratio 22.2 (10-20); Creatinine Clr Calc Pharmacy 38.5 ml/min; Est GFR (African American) 35.2 ml/min; Est GFR (Non-African American) 30.4 ml/min; Globulin 2.5 gm/dl (2.5-4.0); Total Protein 6.3 gm/dl (6.0-8.3)
[2022-11-28] MEDS: FAMOTIDINE 20 MG in SYRINGE 3 ML IV SCH (09:00)
[2022-11-28] MEDS: LACTATED RINGER'S 1,000 ML IV SCH (09:00)
--- NOTE | 2022-11-28 13:38 | Surgery Progress Note ---
Date of Service November 28, 2022 Assessment & Plan (1) SBO (small bowel obstruction): Plan: secondary to incarcerated ventral hernia right mid abdomen. Now reducible on examination. Bowel obstruction should hopefully start to resolve in next 1-2 days. Agree with ng tube to decompress, discussed pushing hernia back in if it pops out, agree with IVF and bowel rest. If bowel obstruction improves, could consider elective repair of hernia to prevent the same from occurring again. Consider abdominal xray in am to assess obstructive pattern. Admission and Anticipated Discharge Date Admission Date: November 27, 2022 Subjective sore in the region of the right sided hernia. No worsening abdominal pain. NG in place. No flatus or bowel movement yet. Physical Exam Constitutional: WD/WN, vitals as above Respiratory: normal respiratory effort, lungs clear to auscultation Cardiovascular: RRR, no murmur, no edema Gastrointestinal (Abdomen): Inspection/Auscultation: + abdomen distended and + hypoactive bowel sounds Percussion/Palpation: + abdomen tender (at hernia site, fully reducible right ventral hernia present) and abdomen soft; no guarding Neurologic: awake; no focal motor deficits Psychiatric: A+Ox3, euthymic affect Results & Data ([facility]) Vital Signs (Past 12 Hours) Vital Signs Temp Pulse Resp BP Pulse Ox O2 Del Method O2 Flow Rate 11/28/22 11:37 36.8 C 61 14 105/67 97 Nasal Cannula 11/28/22 08:00 Nasal Cannula 2 11/28/22 07:49 68 18 99/61 L 96 Nasal Cannula 11/28/22 02:25 36.8 C 66 12 111/70 98 Room Air
--- NOTE | 2022-11-28 19:04 | Hospitalist Progress Note ---
Date of Service November 28, 2022 Assessment & Plan (1) SBO (small bowel obstruction): Plan: -Admit to the PCU/tele -The patient is currently afebrile, hemodynamically stable and stable on RA -Patient came to the ED with 24 hours of abdominal pain and his known right abdominal hernia was no longer reducible -CT of the abd/pelvis WO contrast showed a "incarcerated short segment of distal small bowel within the right anterior abdominal wall" causing a high-grade SBO -S/P NG tube placement with almost an entire canister of drainage -Patient's symptoms are somewhat improved compared to arrival after NG placement, will continue with NG in place -ED staff believes they successfully reduced his hernia after enough analgesia, will touch base with surgery after they evaluate the patient -Surgery has been consulted and will follow -Was started on Zosyn in the ED, will continue for now -Received 1L NSS in the ED, will continue with LR at 100 mL/hr x 2 bags on admission, continue with IV fluids while NPO -Keep NPO except meds for now -IV tylenol for pain of 1,2,3. 1 mg IV morphine q2h prn for pain of 4,5,6+ -Will obtain STAT lactate and procal -Monitor on tele/pulse oximetry -AM CBC, CMP, Mag - 11/28-General surgery following patient Patient with small bowel obstruction secondary to incarcerated ventral hernia right mid abdomen reduced now Continue NG tube IV fluids (2) HTN (hypertension): Plan: -Hemodynamically stable -Hold all antihypertensives at this time as he is NPO and want to avoid hypotension -May need IV antihypertensives while NPO (3) Hyperlipidemia: Plan: -Hold statin while NPO (4) GERD (gastroesophageal reflux disease): Plan: -Hold omeprazole while NPO -Will switch to Plan The patient was seen with and discussed with Dr. Rahman at the time of the admission Admission and Anticipated Discharge Date Admission Date: November 27, 2022 Subjective Patient reports slight discomfort at the hernia site No worsening abdominal pain. NG in place. No bowel movement as of this morning. Physical Exam Physical Exam: Head and ENT no thyroid enlargement trachea midline Cardiovascular S1-S2 are normal no S3 Lungs bilateral air entry fair no wheezing Abdomen ventral hernia reduced no rebound tenderness Extremity shows trace edema Neurologically no focal deficits Skin shows no rash no cyanosis Results & Data Results & Data ([facility]) Vital Signs (Past 12 Hours) Vital Signs Temp Pulse Resp BP Pulse Ox O2 Del Method O2 Flow Rate 11/28/22 15:22 36.9 C 65 17 107/67 97 Nasal Cannula 11/28/22 11:37 36.8 C 61 14 105/67 97 Nasal Cannula 11/28/22 08:00 Nasal Cannula 2 11/28/22 07:49 68 18 99/61 L 96 Nasal Cannula PG Care Time/CCT Total # of Minutes Spent Total Time Spent with Patient: Total time spent is greater than 50% in coordination of care (as documented) at patient's floor/unit and/or counseling patient: Coding Level of Care Code 46331 SUB INP/OBS CARE 2/35MIN Diagnoses SBO (small bowel obstruction) K56.609 HTN (hypertension) I10 Hyperlipidemia E78.5 GERD (gastroesophageal reflux disease) K21.9
[2022-11-29 06:01] LABS: Hematocrit (blood only) 42.2 % (42.0-52.0); Hemoglobin 13.7 g/dl (14.0-18.0); Mean Corpuscular Hemoglobin 30.4 pg (25.0-34.0); Mean Corpuscular Hgb Conc 32.5 g/dL (32.0-36.0); Mean Corpuscular Volume 93.8 fL (80.0-100.0); Mean Platelet Volume 12.3 fL (9.4-12.4); Platelet Count 132 K/uL (130-400); RDW Coefficient of Variation 14.5 % (11.5-14.5); White Blood Count 5.86 K/ul (4.8-10.8)
[2022-11-29 06:21] LABS: Albumin Level 3.6 gm/dl (3.4-5.0); Bilirubin,Total 1.1 mg/dl (0.2-1.0); Calcium 9.2 mg/dl (8.5-10.1); Potassium 3.8 mmol/L (3.5-5.1)
[2022-11-29 06:27] LABS: Albumin Globulin Ratio 1.4 (0.9-2); BUN Creatinine Ratio 25.5 (10-20); Est GFR (African American) 40.6 ml/min; Globulin 2.5 gm/dl (2.5-4.0); Total Protein 6.1 gm/dl (6.0-8.3)
[2022-11-29] MEDS: PIPERACILLIN/TAZOBACTAM 3.375 GM in DEXTROSE 5% 100 ML IV SCH ×2 (06:32→13:38)
[2022-11-29] MEDS: FAMOTIDINE 20 MG in SYRINGE 3 ML IV SCH (09:34)
--- NOTE | 2022-11-29 10:45 | Surgery Progress Note ---
Date of Service November 29, 2022 Assessment & Plan (1) SBO (small bowel obstruction): Plan: secondary to incarcerated ventral hernia right mid abdomen. Reducible on exam. Now passing flatus but still moderate abdominal pain. Has never had incarcerated hernia before. Plan: Given continued pain, Dr. Mccarty discussed open incisional hernia repair with possible mesh with patient to prevent recurrence after discharge and resolution of SBO. Patient would prefer repair while admitted. Will plan for open repair of incisional hernia with possible mesh tomorrow. Will get informed consent tomorrow Keep NPO Keep NGT today Encourage ambulating hallway Can have ice chips Continue medical management Dr. Mccarty has seen and examined pt agrees with above. 11/29/2022 10:[address] Mccarty I reviewed pt's H/P, labs and CT scan with pt, I recommend to do ope repair right side abdominal wall hernia possible mesh, D/W benefits, risks and alternatives of the surgery, the risks - infection, bleeding, injury other organs, hernia recurrence, complications relate to mesh, bowel obstruction, pt understood, he agreed with surgery, he signed informed consent, I answered all questions, continue treatment, Admission and Anticipated Discharge Date Admission Date: November 27, 2022 Supervising Physician Co-Signing Physician Notes Patient seen and examined, chart reviewed, case discussed with KENNETH Jamison and I agree with the assessment and plan as above. In brief, patient is a 56yo male with high grade SBO, incarcerated ventral hernia which was reduced in the ER. NGT placed to wall suction with large amount of liquid output - patient's pain, distention and nausea improving On exam he is ill in appearance, mild distress secondary to recent NGT placement Skin - intact, no rash HEENT - NC/AT, PERRL, MMM, NGT in place Heart - +S1/S2, regular Lungs - CTA anteriorly Abd - distended, diminished bowel sounds, tender to palpation in right mid abdomen, hernia reduced Ext - warm, well perfused Labs and images reviewed Assessment/Plan -Maintain NGT to LIWS -Appreciate General Surgery assistance -Pain control, anti-emetics -Empiric Zosyn for now (consider DC after 24 hours) -Remainder as above Subjective feeling about the same, pain is not worse than yesterday pain comes in waves passing gas this morning, no bowel movement Review of Systems Genitourinary: + problem reported (elevated Cr) Physical Exam Constitutional: WD/WN, vitals as above + obese, cooperative and comfortable; no acute distress and not ill appearing Gastrointestinal (Abdomen): Inspection/Auscultation: abdomen normal to inspection, + abdominal surgical scar (RUQ cholecystectomy scar) and + hypoactive bowel sounds; abdomen not distended and + abnormal bowel sounds Percussion/Palpation: + abdomen tender (RUQ and mid abdomen on deep palpation), abdomen soft and + hernia (incisional hernia RUQ); no guarding and abdomen not rigid NGT with dark bilious output, 600 cc in canister Skin: no rashes, warm and dry Psychiatric: Orientation: alert and oriented x 3 Results & Data ([facility]) Vital Signs (Past 12 Hours) Vital Signs Temp Pulse Resp BP Pulse Ox O2 Del Method O2 Flow Rate 11/29/22 08:00 Nasal Cannula 2 11/29/22 08:04 36.7 C 60 20 124/74 97 Room Air 11/29/22 02:43 36.7 C 67 15 109/71 96 Nasal Cannula 2 11/28/22 22:54 37.3 C 69 17 108/68 98 Nasal Cannula 2 Laboratory Results 11/29/22 11/29/22 Range/Units 05:33 05:33 WBC 5.86 (4.8-10.8) K/ul RBC 4.50 L (4.70-6.10) M/uL Hgb 13.7 L (14.0-18.0) g/dl Hct 42.2 (42.0-52.0) % MCV 93.8 (80.0-100.0) fL MCH 30.4 (25.0-34.0) pg MCHC 32.5 (32.0-36.0) g/dL RDW Std Deviation 50.0 H (36.4-46.3) fL RDW Coeff of Chivo 14.5 (11.5-14.5) % Plt Count 132 (130-400) K/uL MPV 12.3 (9.4-12.4) fL Sodium 140 (136-145) mmol/L Potassium 3.8 (3.5-5.1) mmol/L Chloride 104 (98-107) mmol/L Carbon Dioxide 30 (21-32) mmol/L Anion Gap 6 (3-11) BUN 53 H (6-23) mg/dl Creatinine 2.08 H (0.6-1.4) mg/dl Est Cr Clr Drug Dosing 43.0 ml/min Est GFR ( Amer) 40.6 ml/min Est GFR (Non-Af Amer) 35.0 ml/min BUN/Creatinine Ratio 25.5 H (10-20) Glucose 111 H (70-99(Fasting)) mg/dl Calcium 9.2 (8.5-10.1) mg/dl Magnesium 2.0 (1.7-2.4) mg/dl Total Bilirubin 1.1 H (0.2-1.0) mg/dl AST 13 (13-39) U/L ALT 16 (7-52) U/L Alkaline Phosphatase 38 (34-104) U/L Total Protein 6.1 (6.0-8.3) gm/dl Albumin 3.6 (3.4-5.0) gm/dl Globulin 2.5 (2.5-4.0) gm/dl Albumin/Globulin Ratio 1.4 (0.9-2) Diagnostic Findings CT scan right side abdominal wall hernia
[2022-11-29] MEDS ORDERED: ONDANSETRON INJ 2 MG/ML 2 ML VIAL IV PRN (16:51)
--- NOTE | 2022-11-29 22:23 | Hospitalist Progress Note ---
Date of Service November 29, 2022 Assessment & Plan (1) SBO (small bowel obstruction): Plan: -Admit to the PCU/tele -The patient is currently afebrile, hemodynamically stable and stable on RA -Patient came to the ED with 24 hours of abdominal pain and his known right abdominal hernia was no longer reducible -CT of the abd/pelvis WO contrast showed a "incarcerated short segment of distal small bowel within the right anterior abdominal wall" causing a high-grade SBO -S/P NG tube placement with almost an entire canister of drainage -Patient's symptoms are somewhat improved compared to arrival after NG placement, will continue with NG in place -ED staff believes they successfully reduced his hernia after enough analgesia, will touch base with surgery after they evaluate the patient -Surgery has been consulted and will follow -Was started on Zosyn in the ED, will continue for now -Received 1L NSS in the ED, will continue with LR at 100 mL/hr x 2 bags on admission, continue with IV fluids while NPO -Keep NPO except meds for now -IV tylenol for pain of 1,2,3. 1 mg IV morphine q2h prn for pain of 4,5,6+ -Will obtain STAT lactate and procal -Monitor on tele/pulse oximetry -AM CBC, CMP, Mag - 11/28-General surgery following patient Patient with small bowel obstruction secondary to incarcerated ventral hernia right mid abdomen reduced now Continue NG tube IV fluids 11/29 Patient having sugery tomorrow. NOt improving with NG tube. (2) HTN (hypertension): Plan: -Hemodynamically stable -Hold all antihypertensives at this time as he is NPO and want to avoid hypotension -May need IV antihypertensives while NPO (3) Hyperlipidemia: Plan: -Hold statin while NPO (4) GERD (gastroesophageal reflux disease): Plan: -Hold omeprazole while NPO -on famotidine Admission and Anticipated Discharge Date Admission Date: November 27, 2022 Subjective 56 yo male reports no new symptoms Review of Systems Review of Systems: All systems reviewed & are unremarkable except as noted in HPI & below Physical Exam Physical Exam: Head and ENT no thyroid enlargement trachea midline Cardiovascular S1-S2 are normal no S3 Lungs bilateral air entry fair no wheezing Abdomen ventral hernia reduced no rebound tenderness Extremity shows trace edema Neurologically no focal deficits Skin shows no rash no cyanosis Results & Data Results & Data ([facility]) Vital Signs (Past 12 Hours) Vital Signs Temp Pulse Resp BP BP Pulse Ox O2 Del Method 11/29/22 19:06 71 17 128/78 94 Nasal Cannula 11/29/22 15:53 70 20 140/86 98 Nasal Cannula 11/29/22 11:46 37.1 C 68 20 116/74 96 Room Air O2 Flow Rate 11/29/22 19:06 2 11/29/22 15:53 2 11/29/22 11:46 PG Care Time/CCT Total # of Minutes Spent Total Time Spent with Patient: Total time spent is greater than 50% in coordination of care (as documented) at patient's floor/unit and/or counseling patient: Coding Level of Care Code 84939 SUB INP/OBS CARE 2/35MIN Diagnoses SBO (small bowel obstruction) K56.609 HTN (hypertension) I10 Hyperlipidemia E78.5 GERD (gastroesophageal reflux disease) K21.9
[2022-11-30 06:29] LABS: Hematocrit (blood only) 41.6 % (42.0-52.0); Hemoglobin 13.6 g/dl (14.0-18.0); Mean Corpuscular Hemoglobin 30.7 pg (25.0-34.0); Mean Corpuscular Hgb Conc 32.7 g/dL (32.0-36.0); Mean Corpuscular Volume 93.9 fL (80.0-100.0); Platelet Count 145 K/uL (130-400); RDW Coefficient of Variation 14.3 % (11.5-14.5); RDW Standard Deviation 49.5 fL (36.4-46.3); Red Blood Count 4.43 M/uL (4.70-6.10); White Blood Count 6.96 K/ul (4.8-10.8)
[2022-11-30 06:49] LABS: Albumin Globulin Ratio 1.3 (0.9-2); Albumin Level 3.6 gm/dl (3.4-5.0); BUN Creatinine Ratio 30.9 (10-20); Calcium 9.3 mg/dl (8.5-10.1); Creatinine Clr Calc Pharmacy 54.8 ml/min; Est GFR (African American) 54.9 ml/min; Est GFR (Non-African American) 47.4 ml/min; Globulin 2.7 gm/dl (2.5-4.0); Magnesium 2.1 mg/dl (1.7-2.4); Potassium 3.6 mmol/L (3.5-5.1); Total Protein 6.3 gm/dl (6.0-8.3)
--- NOTE | 2022-11-30 09:30 | Hospitalist Progress Note ---
Date of Service November 30, 2022 Assessment & Plan (1) SBO (small bowel obstruction): Plan: -Admit to the PCU/tele -The patient is currently afebrile, hemodynamically stable and stable on RA -Patient came to the ED with 24 hours of abdominal pain and his known right abdominal hernia was no longer reducible -CT of the abd/pelvis WO contrast showed a "incarcerated short segment of distal small bowel within the right anterior abdominal wall" causing a high-grade SBO -S/P NG tube placement with almost an entire canister of drainage -Patient's symptoms are somewhat improved compared to arrival after NG placement, will continue with NG in place -ED staff believes they successfully reduced his hernia after enough analgesia, will touch base with surgery after they evaluate the patient -Surgery has been consulted and will follow -Was started on Zosyn in the ED, will continue for now -Received 1L NSS in the ED, will continue with LR at 100 mL/hr x 2 bags on admission, continue with IV fluids while NPO -Keep NPO except meds for now -IV tylenol for pain of 1,2,3. 1 mg IV morphine q2h prn for pain of 4,5,6+ -Will obtain STAT lactate and procal -Monitor on tele/pulse oximetry -AM CBC, CMP, Mag - 11/28-General surgery following patient Patient with small bowel obstruction secondary to incarcerated ventral hernia right mid abdomen reduced now Continue NG tube IV fluids 11/29 Patient having sugery tomorrow. NOt improving with NG tube. 11/30 Patient is planning for surgery later today. Patient distention though improved. will obtain KUB. continue NG tube suction. Patient still interested in surgery. (2) HTN (hypertension): Plan: -Hemodynamically stable -Hold all antihypertensives at this time as he is NPO and want to avoid hypotension -May need IV antihypertensives while NPO (3) Hyperlipidemia: Plan: -Hold statin while NPO (4) GERD (gastroesophageal reflux disease): Plan: -Hold omeprazole while NPO -on famotidine Admission and Anticipated Discharge Date Admission Date: November 27, 2022 Subjective Patient reports having a moderate sized BM yesterday. Patient reports no new symptoms. Review of Systems Review of Systems: All systems reviewed & are unremarkable except as noted in HPI & below Physical Exam Physical Exam: Head and ENT no thyroid enlargement trachea midline Cardiovascular S1-S2 are normal no S3 Lungs bilateral air entry fair no wheezing Abdomen ventral hernia reduced no rebound tenderness. Abdomen appears less distended Extremity shows trace edema Neurologically no focal deficits Skin shows no rash no cyanosis Results & Data Results & Data ([facility]) Vital Signs (Past 12 Hours) Vital Signs Temp Pulse Pulse Resp BP BP Pulse Ox 11/30/22 08:07 37.0 C 72 16 126/83 95 11/30/22 03:30 37 C 69 14 127/79 94 11/29/22 22:06 73 11/29/22 23:22 36.7 C 78 20 146/80 H 90 O2 Del Method 11/30/22 08:07 Room Air 11/30/22 03:30 Room Air 11/29/22 22:06 11/29/22 23:22 Room Air PG Care Time/CCT Total # of Minutes Spent Total Time Spent with Patient: Total time spent is greater than 50% in coordination of care (as documented) at patient's floor/unit and/or counseling patient: Coding Level of Care Code 27881 SUB INP/OBS CARE 2/35MIN Diagnoses SBO (small bowel obstruction) K56.609 HTN (hypertension) I10 Hyperlipidemia E78.5 GERD (gastroesophageal reflux disease) K21.9
[2022-11-30] MEDS: FAMOTIDINE 20 MG in SYRINGE 3 ML IV SCH (09:35)
--- NOTE | 2022-11-30 10:36 | XRay Report ---
KUB CLINICAL HISTORY: Small bowel obstruction. FINDINGS: 2 AP supine abdominal radiographs are correlated with abdominal CT dated 11/27/2022. An ente gabriel tube is in place. The tip terminates at the level of the diaphragm. The sideholes are located abo ve the diaphragm. Cholecystectomy clips are seen in the right upper quadrant. There is persistent sma ll bowel obstruction. Distended and gas-filled loops of small bowel measure up to 5 cm. No evidence o f intraperitoneal free air is seen on these supine images. Pelvic phleboliths are again noted. The [place] structures appear intact. Degenerative sclerosis is noted in the sacroiliac joints. IMPRESSION: 1. An enteric tube is in place as above. This should be advanced. 2. Persistent high-grade small bowel obstruction. Electronically signed by: Al Greenberg M.D. 11/30/2022 10:34 AM
[2022-11-30] MEDS ORDERED: ceFAZolin 2000MG 2,000 MG/15 ML SYR IV ONE (11:48)
--- NOTE | 2022-11-30 11:48 | History & Physical Bridge Note ---
Date of Service November 30, 2022 History & Physical Bridge Note I have examined the patient, reviewed the History & Physical and in the interval since the performance of the History & Physical I have noted the following changes of clinical significance: no changes noted Supervising Physician Co-Signing Physician Notes Patient seen and examined, chart reviewed, case discussed with KENNETH Jamison and I agree with the assessment and plan as above. In brief, patient is a 56yo male with high grade SBO, incarcerated ventral hernia which was reduced in the ER. NGT placed to wall suction with large amount of liquid output - patient's pain, distention and nausea improving On exam he is ill in appearance, mild distress secondary to recent NGT placement Skin - intact, no rash HEENT - NC/AT, PERRL, MMM, NGT in place Heart - +S1/S2, regular Lungs - CTA anteriorly Abd - distended, diminished bowel sounds, tender to palpation in right mid abdomen, hernia reduced Ext - warm, well perfused Labs and images reviewed Assessment/Plan -Maintain NGT to LIWS -Appreciate General Surgery assistance -Pain control, anti-emetics -Empiric Zosyn for now (consider DC after 24 hours) -Remainder as above
[2022-11-30] MEDS ORDERED: MIDAZOLAM HCL 1 MG/ML 2ML VIAL ONE (12:51)
[2022-11-30] MEDS ORDERED: fentaNYL citrate 100 MCG/2 ML VIAL ONE (12:52)
[2022-11-30] MEDS ORDERED: LIDOCAINE 2% MPF LOCAL 5 ML VIAL INFIL ONE (12:54)
[2022-11-30] MEDS ORDERED: ROCURONIUM BROMIDE 10 MG/ML 5 ML VIAL IV ONE (12:54)
[2022-11-30] MEDS ORDERED: PROPOFOL IV EMULSION 10 MG/ML 20 ML VIAL IV ONE (12:54)
[2022-11-30] MEDS ORDERED: BUPIVACAINE 0.5 % 5 MG/1 ML MPF 30ML VIAL ONE ×2 (12:58→13:25)
[2022-11-30] MEDS ORDERED: LIDOCAINE 1% LOCAL 20 ML VIAL ONE ×2 (12:58→13:26)
[2022-11-30] MEDS ORDERED: BACITRACIN OINT 15 GM TUBE ONE ×2 (12:58→13:25)
[2022-11-30] MEDS ORDERED: ATROPINE SULFATE 0.1 MG/ML 10ML SYR IV PRN (13:14)
[2022-11-30] MEDS ORDERED: ePHEDrine sulfate 50 MG/ML AMP IV PRN (13:14)
[2022-11-30] MEDS ORDERED: HYDROmorphone INJ 2 MG/ML SYR/VIAL IV PRN (13:14)
[2022-11-30] MEDS ORDERED: fentaNYL citrate 100 MCG/2 ML VIAL IV PRN (13:14)
--- NOTE | 2022-11-30 13:14 | Anesthesiology Consultation ---
Date of Service November 30, 2022 Assessment & Plan Chart Review Chart Review: Acceptable Risk for Surgery and Patient NOT seen in Pre Admission Testing ASA ASA3 Proposed Anesthesia Anesthesia Type: General Risk / Benefits Reviewed With: PT / POA / Parent / Guardian, Accepts Plan and Informed Consent Obtained History Surgery Operation Date: 11/30/22 12:25 Proposed Procedures p Open Incisional Hernia Repair with Possible Mesh - Belgica Mccarty MD Height/Weight Height: 5 ft 6 in Weight: 90 kg Allergies Allergy/AdvReac Type Severity Reaction Status Date / Time No Known Allergies Allergy Unverified 11/27/22 19:48 Medications Home Medications Medication Instructions Recorded Confirmed Last Taken Crestor 5 mg PO DAILY 11/27/22 11/27/22 11/25/22 carvedilol 12.5 mg tablet 12.5 mg PO BID 11/27/22 11/27/22 11/12/22 chlorthalidone 50 mg tablet 50 mg PO DAILY 11/27/22 11/27/22 11/12/22 lisinopril 40 mg tablet 40 mg PO DAILY 11/27/22 11/27/22 11/25/22 omeprazole 40 mg capsule,delayed 40 mg PO DAILY 11/27/22 11/27/22 11/12/22 release potassium chloride 20 mEq 20 meq PO BID 11/27/22 11/27/22 11/12/22 tablet,extended release(part/cryst) Active Medications Generic Name Dose Route Start Last Admin Trade Name Freq PRN Reason Stop Dose Admin Famotidine 20 mg/ Syringe 5 mls @ 2.5 mls/min 11/28/22 09:00 11/30/22 09:35 IV 12/28/22 08:59 2.5 mls/min DAILY MEAGHAN Administration Morphine Sulfate 1 mg 11/27/22 19:41 11/28/22 22:56 Morphine Sulfate 2 Mg/Ml Carp IV 12/11/22 19:40 1 mg Q2H PRN Administration Pain (4,5,6+) NPO Date Last Intake of Fluids: 11/29/22 Time Last Intake of Fluids: 18:00 Last Intake of Fluids Comment: ice chips Date Last Intake of Solids: 11/26/22 Exercise / Class Metabolic Activity II 4-5 Yardwork/Stairs/Walk up hill Past Surgical History Surgical History History of cholecystectomy Past Anesthesia History No Hx of Anesthesia Complications and No Family Hx of Anesthesia Complications History of PONV No Hx of PONV and No Hx of Motion Sickness Social History Smoking Status: Former smoker Do You Dip or Chew Tobacco: No Hx Alcohol Use: No Hx Substance Use: No substance use type: does not use Review of Systems ROS Unobtainable: All systems reviewed & are unremarkable except as noted in HPI & below Physical Exam Vital Signs Last Vital Signs Temp 36.4 C L 11/30/22 12:26 Pulse 63 11/30/22 12:26 Resp 18 11/30/22 12:26 BP 147/84 H 11/30/22 12:26 Pulse Ox 95 11/30/22 12:26 O2 Del Method 11/30/22 12:26 O2 Flow Rate 2 11/29/22 19:06 Constitutional WD/WN, vitals as above + obese Eyes PERRL, conjunctivae normal, anicteric sclerae ENMT external ear and nose normal, oropharynx normal Mouth: no dentition abnormality Thyromental Distance: > or= 3.5 Finger Breadths Mallampati Class: II NGT in situ Neck trachea midline, no thyromegaly Respiratory normal respiratory effort, lungs clear to auscultation Cardiovascular RRR, no murmur, no edema Musculoskeletal Head/Neck/Chest: normocephalic and head atraumatic Spine: normal cervical ROM and no pain with cervical ROM Extremities: extremities normal to inspection and strength 5/5 throughout; full ROM of extremities Skin no rashes, warm and dry Neurologic moves all extremities Psychiatric A+Ox3, euthymic affect Testing Laboratory Results 11/30/22 05:50 11/30/22 05:50 Urine Color Dark Yellow 11/28/22 06:15 Urine Appearance Clear (Clear) 11/28/22 06:15 Urine pH 5.0 (4.5-7.5) 11/28/22 06:15 Ur Specific [place] 1.032 (1.000-1.030) H 11/28/22 06:15 Urine Protein Trace (Negative) H 11/28/22 06:15 Urine Glucose (UA) Negative (Negative) 11/28/22 06:15 Urine Ketones Trace (Negative) H 11/28/22 06:15 Urine Nitrite Negative (Negative) 11/28/22 06:15 Ur Leukocyte Esterase Negative (Negative) 11/28/22 06:15 Urine WBC (Auto) 1-5 /hpf (0-5) 11/28/22 06:15 Urine RBC (Auto) 0-4 /hpf (0-4) 11/28/22 06:15 U Hyaline Cast (Auto) 1-5 /lpf (0-5) 11/28/22 06:15 U Epithel Cells (Auto) 10-20 /lpf (0-5) H 11/28/22 06:15 Urine Bacteria (Auto) Negative (Negative) 11/28/22 06:15
[2022-11-30] MEDS ORDERED: DEXAMETHASONE SOD INJ 4 MG/ML VIAL ONE (13:50)
[2022-11-30] MEDS ORDERED: ONDANSETRON INJ 2 MG/ML 2 ML VIAL ONE (13:51)
[2022-11-30] MEDS ORDERED: SUGAMMADEX SODIUM 200 MG/2 ML VIAL IV ONE (14:12)
--- NOTE | 2022-11-30 14:25 | Post Operative Brief Note ---
Immediate Post Op Note v1 Date of Surgery November 30, 2022 Pre & Post Diagnosis Operation Date: 11/30/22 12:25 Pre-Op Diagnosis: Incisional Hernia, bowel obstruction Post-Op Diagnosis: Incisional Hernia, bowel obstruction I identified the patient and participated in the time-out.: Yes Procedure Operation Date: 11/30/22 12:25 Actual Procedures p Open Incisional Hernia Repair with Mesh(Right) lysis of adhesion - Belgica Mccarty MD Surgeon Belgica Mccarty MD Shuttle Repairer WILLIAM Mcleod Estimated Blood Loss 10 Findings Consistent with Post-Op Diagnosis adhesion scar cause bowel obstruction , lysis of adhesion, right side abdominal wall hernia, size about 5x5cm, Fluids 600ml Anesthesia Type General Complications none Disposition Accompanied Patient To Recovery: Yes
--- NOTE | 2022-11-30 15:11 | Anesthesiology Progress Note ---
Date of Service November 30, 2022 Anesthesia Post Procedure Vital Signs Vital Signs: Temp Pulse Pulse Resp BP BP Pulse Ox 11/30/22 15:00 61 16 140/89 94 11/30/22 14:50 62 16 152/86 H 94 11/30/22 14:43 36.3 C L 60 17 170/91 H 94 11/30/22 12:26 36.4 C L 63 18 147/84 H 95 11/30/22 08:00 66 11/30/22 08:00 11/30/22 08:07 37.0 C 72 16 126/83 95 11/30/22 03:30 37 C 69 14 127/79 94 11/29/22 22:06 73 11/29/22 23:22 36.7 C 78 20 146/80 H 90 11/29/22 20:00 11/29/22 19:06 71 17 128/78 94 11/29/22 15:53 70 20 140/86 98 O2 Del Method O2 Flow Rate 11/30/22 15:00 Oxymask 6 11/30/22 14:50 Oxymask 6 11/30/22 14:43 Oxymask 6 11/30/22 12:26 Room Air 11/30/22 08:00 11/30/22 08:00 Room Air 11/30/22 08:07 Room Air 11/30/22 03:30 Room Air 11/29/22 22:06 11/29/22 23:22 Room Air 11/29/22 20:00 Room Air 11/29/22 19:06 Nasal Cannula 2 11/29/22 15:53 Nasal Cannula 2 Pain Intensity Right Abdomen: Pain Intensity: 10 Transfer of Care Handoff Completed per policy Notes Mental Status: alert / awake / arousable and participated in evaluation Patient Amnestic to Procedure: Yes Nausea / Vomiting: adequately controlled Pain: adequately controlled Airway Patency, RR, SpO2: stable & adequate BP & HR: stable & adequate Hydration State: stable & adequate Anesthetic Complications: no major complications apparent and Pt Satisfied with anesthetic care
[2022-11-30] MEDS ORDERED: MoRPHine SULFATE 2 MG/ML CARP IV PRN (15:49)
[2022-11-30] MEDS: SODIUM CHLORIDE 0.9% 1000ML 1,000 ML IV SCH (16:12)
--- NOTE | 2022-11-30 20:14 | Operative Report (OR) ---
DATE OF SERVICE: 11/30/2022 PREOPERATIVE DIAGNOSIS: Incisional hernia, bowel obstruction. POSTOPERATIVE DIAGNOSIS: Incisional hernia, bowel obstruction. PROCEDURE: Open repair of incisional hernia with mesh, lysis of adhesion. SURGEON: Belgica Mccarty MD. MAN[employer]URERS SERVICE REPRESENTATIVE: Marifer Michel PA-C. ANESTHESIA: General. ESTIMATED BLOOD LOSS: About 10 mL. FINDINGS: Right-sided abdominal wall incisional hernia. The hernia size about 5 x 5 cm and with adh esion scar close to the patient's bowel obstruction around the hernia site. COMPLICATIONS: None. INDICATIONS FOR THE PROCEDURE: This is a 56-year-old gentleman who was admitted to the hospital for right-sided abdominal wall incisional hernia with bowel obstruction, and I recommended to do open rep air of incisional hernia, possible mesh. I did talk to the patient about the benefit, risk, alternat e procedure. I indicated the risks may include, but not limited to such as bleeding, infection, helena ia recurrence, seroma, injury to other organs, complication related to mesh, bowel obstruction. The patient understands. He signed informed consent and I answered all questions. DETAILS OF PROCEDURE: After we identified the patient and verified the procedure, we brought the pat ient to the OR, put the patient in the supine position on the OR table. The patient received SCD on bilateral legs to prevent DVT. Also, patient received 2 grams of Ancef IV for prophylactic antibioti c. The patient received general anesthesia without difficulty. The abdomen was prepped and draped i n routine sterile fashion. After timeout, reexamined the patient, the patient had a right-sided abdominal wall incisional hernia and there was some scar on the right-sided abdominal wall from cholecystitis in the past. Then, we made about an 8 cm incision, removed the old scar on the right side of the abdomen. Dissected through the subcutaneous layer and reached the hernia sac. We opened the hernia sac and we mobilized the fascial layer and then we found the patient had an incisional hernia size about 5 x 5 c m at this moment, and also around the hernia neck, there was scar adhesion causing the patient's nya l obstruction. We took down the scar adhesion, lysed the adhesion. Hemostasis obtained. I chose an 8 cm round mesh to repair the incisional hernia. I used 0 Ethibond, sutured the fascia to the mesh interruptedly in 360 degrees. Then, we tied each suture one by one, the mesh seated nicely , no tension. Hemostasis obtained, then I closed the subcutaneous layer by using 2-0 Vicryl continuo us running, closed skin by using staple. Then, we put the dressing on. The patient tolerated the procedure well. All instrument, needle and sponge counts were correct x2 a t the end of the case. The patient was transferred to recovery room in stable condition. After the procedure, I did talk to the patient about the OR finding and the procedure we did, the patient under stands. The clinical services assistant, Marifer, is necessary for this procedure. Her role was for exposure and retract ion. Job ID: [id number]
[2022-11-30] MEDS: ceFAZolin 1000MG 1,000 MG/7.5 ML SYR IV SCH (21:32)
[2022-11-30] MEDS ORDERED: FAMOTIDINE 20 MG in SYRINGE 3 ML IV ONE (23:30)
[2022-12-01] MEDS: SODIUM CHLORIDE 0.9% 1000ML 1,000 ML IV SCH ×3 (00:41→19:54)
[2022-12-01] MEDS: ACETAMINOPHEN 1,000 MG/100 ML VIAL IV PRN ×3 (03:08→22:18)
[2022-12-01] MEDS: ceFAZolin 1000MG 1,000 MG/7.5 ML SYR IV SCH ×2 (05:15→12:28)
[2022-12-01] MEDS: FAMOTIDINE 20 MG in SYRINGE 3 ML IV SCH ×2 (08:10→22:53)
[2022-12-01 09:47] LABS: Basophils # (auto) 0.03 K/uL (0-0.2); Basophils % (auto) 0.4 %; Hematocrit (blood only) 45.5 % (42.0-52.0); Hemoglobin 14.5 g/dl (14.0-18.0); Immature Granulocytes # (auto) 0.04 K/uL (0.01-0.20); Immature Granulocytes % (auto) 0.5 %; Lymphocytes # (auto) 1.15 K/uL (1.2-3.4); Lymphocytes % (auto) 14.1 %; Mean Corpuscular Hemoglobin 30.7 pg (25.0-34.0); Mean Corpuscular Hgb Conc 31.9 g/dL (32.0-36.0); Mean Corpuscular Volume 96.2 fL (80.0-100.0); Mean Platelet Volume 11.9 fL (9.4-12.4); Monocytes # (auto) 0.92 K/uL (0.11-0.59); Monocytes % (auto) 11.3 %; Neutrophils # (auto) 6.03 K/uL (1.40-6.50); Neutrophils % (auto) 73.7 %; Platelet Count 144 K/uL (130-400); RDW Coefficient of Variation 14.2 % (11.5-14.5); RDW Standard Deviation 50.2 fL (36.4-46.3); Red Blood Count 4.73 M/uL (4.70-6.10); White Blood Count 8.17 K/ul (4.8-10.8)
[2022-12-01] MEDS ORDERED: MoRPHine SULFATE 2 MG/ML CARP IV PRN ×2 (10:05)
--- NOTE | 2022-12-01 10:14 | Surgery Progress Note ---
Date of Service December 01, 2022 Assessment & Plan (1) SBO (small bowel obstruction): (2) Incisional hernia: Plan POD # 1 s/p open incisional hernia repair with mesh afebrile, vss moderate postop pain controlled NGT with 750 cc postop not passing flatus today, KUB yesterday preop still showing High grade SBO Plan: continue NGT to LIS Continue NPO can have some sips and chips Continue IV pain management as needed Highly encouraged OOB to chair and ambulation to help increase GI motility Pepcid changed to BID Continue IV fluids and IV antibotics repeat am labs while npo KUB in am continue medical management Dr. Mccarty has seen and examined pt, agrees with above. Admission and Anticipated Discharge Date Admission Date: November 27, 2022 Subjective moderate postop pain not passing gas this am NGT with dark brown/bilious output about 700 cc since last night has not been ambulating since surgery Heartburn controlled with Pepcid no nausea or vomiting Physical Exam Constitutional: WD/WN, vitals as above + obese and cooperative; no acute distress and not ill appearing Respiratory: normal respiratory effort; no respiratory distress, no labored breathing and no retractions Gastrointestinal (Abdomen): Inspection/Auscultation: abdomen normal to inspection and + abdominal surgical incision (covered with dry intact dressing); + abnormal bowel sounds Percussion/Palpation: + abdomen tender (at incision site) and abdomen soft; no guarding and abdomen not rigid Skin: no rashes, warm and dry Psychiatric: Orientation: alert and oriented x 3 Results & Data ([facility]) Vital Signs (Past 12 Hours) Vital Signs Temp Pulse Resp BP BP Pulse Ox O2 Del Method 12/01/22 08:15 Nasal Cannula 12/01/22 08:20 36.6 C 64 16 139/83 97 Nasal Cannula 12/01/22 05:04 36.7 C 58 L 16 127/78 95 Nasal Cannula O2 Flow Rate 12/01/22 08:15 2 12/01/22 08:20 2 12/01/22 05:04 2.0 Laboratory Results 12/01/22 12/01/22 Range/Units 09:22 09:22 WBC 8.17 (4.8-10.8) K/ul RBC 4.73 (4.70-6.10) M/uL Hgb 14.5 (14.0-18.0) g/dl Hct 45.5 (42.0-52.0) % MCV 96.2 (80.0-100.0) fL MCH 30.7 (25.0-34.0) pg MCHC 31.9 L (32.0-36.0) g/dL RDW Std Deviation 50.2 H (36.4-46.3) fL RDW Coeff of [place]ivo 14.2 (11.5-14.5) % Plt Count 144 (130-400) K/uL MPV 11.9 (9.4-12.4) fL Immature Gran % (Auto) 0.5 % Neut % (Auto) 73.7 % Lymph % (Auto) 14.1 % [place] % (Auto) 11.3 % Eos % (Auto) 0.0 % Baso % (Auto) 0.4 % Neut # (Auto) 6.03 (1.40-6.50) K/uL Lymph # (Auto) 1.15 L (1.2-3.4) K/uL [place] # (Auto) 0.92 H (0.11-0.59) K/uL Eos # (Auto) 0.00 (0-0.50) K/uL Baso # (Auto) 0.03 (0-0.2) K/uL Immature Gran # (Auto) 0.04 (0.01-0.20) K/uL Sodium Pending Potassium Pending Chloride Pending Carbon Dioxide Pending Anion Gap Pending BUN Pending Creatinine Pending Est Cr Clr Drug Dosing Pending Est GFR ( Amer) Pending Est GFR (Non-Af Amer) Pending BUN/Creatinine Ratio Pending Glucose Pending Calcium Pending Total Bilirubin Pending AST Pending ALT Pending Alkaline Phosphatase Pending Total Protein Pending Albumin Pending Globulin Pending Albumin/Globulin Ratio Pending
[2022-12-01 10:15] LABS: Albumin Globulin Ratio 1.4 (0.9-2); Albumin Level 3.7 gm/dl (3.4-5.0); BUN Creatinine Ratio 29.1 (10-20); Bilirubin,Total 0.9 mg/dl (0.2-1.0); Calcium 9.2 mg/dl (8.5-10.1); Creatinine Clr Calc Pharmacy 59.9 ml/min; Est GFR (African American) 61.3 ml/min; Est GFR (Non-African American) 52.9 ml/min; Globulin 2.6 gm/dl (2.5-4.0); Potassium 3.6 mmol/L (3.5-5.1); Total Protein 6.3 gm/dl (6.0-8.3)
--- NOTE | 2022-12-01 21:04 | Hospitalist Progress Note ---
Date of Service December 01, 2022 Assessment & Plan (1) SBO (small bowel obstruction): Plan: -Admit to the PCU/tele -The patient is currently afebrile, hemodynamically stable and stable on RA -Patient came to the ED with 24 hours of abdominal pain and his known right abdominal hernia was no longer reducible -CT of the abd/pelvis WO contrast showed a "incarcerated short segment of distal small bowel within the right anterior abdominal wall" causing a high-grade SBO -S/P NG tube placement with almost an entire canister of drainage -Patient's symptoms are somewhat improved compared to arrival after NG placement, will continue with NG in place -ED staff believes they successfully reduced his hernia after enough analgesia, will touch base with surgery after they evaluate the patient -Surgery has been consulted and will follow -Was started on Zosyn in the ED, now stopped -Received 1L NSS in the ED, will continue with LR at 100 mL/hr x 2 bags on admission, continue with IV fluids while NPO -Keep NPO except meds for now -IV tylenol for pain of 1,2,3. 1 mg IV morphine q2h prn for pain of 4,5,6+ -Will obtain STAT lactate and procal -Monitor on tele/pulse oximetry -AM CBC, CMP, Mag - 11/28-General surgery following patient Patient with small bowel obstruction secondary to incarcerated ventral hernia right mid abdomen reduced now Continue NG tube IV fluids 11/29 Patient having sugery tomorrow. NOt improving with NG tube. 11/30 Patient is planning for surgery later today. Patient distention though improved. will obtain KUB. continue NG tube suction. Patient still interested in surgery. 12/01 Day 1 s/p hernai repair and lysis of adhesions around SBO Patient has not had a BM since surgery. Continue with NG Tube suction will monitor. In regards to his conjunctivitis, may be viral, as it doesn't appear to be purulent, will monitor, if remains present on 12/02 will recommend antibiotic eye drops. (2) HTN (hypertension): Plan: -Hemodynamically stable -Hold all antihypertensives at this time as he is NPO and want to avoid hypotension -May need IV antihypertensives while NPO (3) Hyperlipidemia: Plan: -Hold statin while NPO (4) GERD (gastroesophageal reflux disease): Plan: -Hold omeprazole while NPO -on famotidine Admission and Anticipated Discharge Date Admission Date: November 27, 2022 Subjective Patient reports complaining of drainage in his right eye. He also reports not having a BM today. Review of Systems Review of Systems: All systems reviewed & are unremarkable except as noted in HPI & below Physical Exam Physical Exam: Head and ENT no thyroid enlargement trachea midline Cardiovascular S1-S2 are normal no S3 Lungs bilateral air entry fair no wheezing Abdomen appears less distended Extremity shows trace edema Neurologically no focal deficits Skin shows no rash no cyanosis Results & Data Results & Data ([facility]) Vital Signs (Past 12 Hours) Vital Signs Temp Pulse Resp BP BP Pulse Ox O2 Del Method 12/01/22 19:50 Room Air 12/01/22 15:24 37.2 C 61 16 149/84 H 94 Room Air 12/01/22 11:20 36.8 C 63 16 126/84 95 Room Air PG Care Time/CCT Total # of Minutes Spent Total Time Spent with Patient: Total time spent is greater than 50% in coordination of care (as documented) at patient's floor/unit and/or counseling patient: Coding Level of Care Code 45083 SUB INP/OBS CARE 2/35MIN Diagnoses SBO (small bowel obstruction) K56.609 HTN (hypertension) I10 Hyperlipidemia E78.5 GERD (gastroesophageal reflux disease) K21.9
[2022-12-02] MEDS: SODIUM CHLORIDE 0.9% 1000ML 1,000 ML IV SCH ×2 (06:14→16:24)
[2022-12-02] MEDS: FAMOTIDINE 20 MG in SYRINGE 3 ML IV SCH ×2 (08:54→22:39)
--- NOTE | 2022-12-02 09:47 | Hospitalist Progress Note ---
Date of Service December 02, 2022 Assessment & Plan (1) SBO (small bowel obstruction): Plan: Acute on presentation, significant risk to patient, treated with surgical hernia repair and mesh -CT of the abd/pelvis WO contrast showed a "incarcerated short segment of distal small bowel within the right anterior abdominal wall" causing a high-grade SBO -IV tylenol IV morphine for pain --General surgery, s/p open incisional hernia repair with mesh, following patie nt managing NG tube and diet advancement acute conjunctivitis, may be viral, as it doesn't appear to be purulent (2) HTN (hypertension): Plan: -Chronic stable prn IV antihypertensives while NPO will restart coreg as soon as able monitor for rebound tachycardia (3) GERD (gastroesophageal reflux disease): Plan: -Hold omeprazole while NPO -on famotidine Admission and Anticipated Discharge Date Admission Date: November 27, 2022 Subjective Patient was seen in the presence of the retirement guards. NG tube present in his nose draining greenish liquid. Patient complains of discomfort and he has hiccups because of the NG tube., He was offered Thorazine but he refused patient requested to be removed but surgery does not feel its appropriate at this time given his output he did have flatus Physical Exam Physical Exam: Patient's abdomen is distended and tympanitic it is tender it is a binder in place His lungs are diminished at the bases but otherwise clear Results & Data Results & Data ([facility]) Vital Signs (Past 12 Hours) Vital Signs Temp Pulse Resp BP Pulse Ox O2 Del Method 12/02/22 09:25 Room Air 12/02/22 07:39 99.1 F 65 16 144/89 H 92 Room Air 12/01/22 22:27 98.2 F 67 16 135/76 94 Room Air Diagnostic Findings Reviewed CBC Reviewed PRP PG Care Time/CCT Total # of Minutes Spent Total Time Spent with Patient: Total time spent is greater than 50% in coordination of care (as documented) at patient's floor/unit and/or counseling patient: Coding Level of Care Code 02663 SUB INP/OBS CARE 2/35MIN Diagnoses SBO (small bowel obstruction) K56.609 HTN (hypertension) I10 GERD (gastroesophageal reflux disease) K21.9
[2022-12-02 09:52] LABS: Basophils # (auto) 0.03 K/uL (0-0.2); Basophils % (auto) 0.3 %; Eosinophils # (auto) 0.02 K/uL (0-0.50); Eosinophils % (auto) 0.2 %; Hematocrit (blood only) 43.2 % (42.0-52.0); Hemoglobin 14.3 g/dl (14.0-18.0); Immature Granulocytes # (auto) 0.07 K/uL (0.01-0.20); Immature Granulocytes % (auto) 0.7 %; Lymphocytes % (auto) 6.8 %; Mean Corpuscular Hemoglobin 30.8 pg (25.0-34.0); Mean Corpuscular Hgb Conc 33.1 g/dL (32.0-36.0); Mean Corpuscular Volume 92.9 fL (80.0-100.0); Monocytes # (auto) 0.76 K/uL (0.11-0.59); Monocytes % (auto) 7.3 %; Neutrophils # (auto) 8.77 K/uL (1.40-6.50); Neutrophils % (auto) 84.7 %; Platelet Count 147 K/uL (130-400); RDW Coefficient of Variation 14.2 % (11.5-14.5); Red Blood Count 4.65 M/uL (4.70-6.10); White Blood Count 10.35 K/ul (4.8-10.8)
--- NOTE | 2022-12-02 09:53 | XRay Report ---
KUB HISTORY: Recent surgery. Abdominal distention. Follow-up small bowel obstruction. COMPARISON: KUB 11/30/2022. FINDINGS: There are skin weston seen within the right upper quadrant which are new from the prior st udy. Nasogastric tube remains unchanged in position with the tip just below the level of the left hem idiaphragm. The fenestrated line is at the expected location of the gastroesophageal junction. Theref ore, this should be advanced by approximately 5 cm. Prior cholecystectomy. Multiple dilated gas-fille d loops of small bowel are again noted throughout the abdomen. This is similar to the prior study wit h the bowel loops measuring up to 5 cm in diameter. No renal calculi. No ureteral calculi. No pneum operitoneum or pneumatosis. IMPRESSION: 1. Persistent dilated loops of small bowel seen within the abdomen. This could represent a persistent high-grade small bowel obstruction or postoperative ileus. 2. Nasogastric tube as described above which should be advanced by approximately 5 cm. ACT 112: Negative or not required by law. Electronically signed by: Wesley Bonilla M.D. 12/02/2022 9:52 AM
[2022-12-02 10:33] LABS: BUN Creatinine Ratio 29.8 (10-20); Calcium 9.4 mg/dl (8.5-10.1); Creatinine Clr Calc Pharmacy 67.7 ml/min; Est GFR (Non-African American) 61.3 ml/min; Potassium 3.5 mmol/L (3.5-5.1)
--- NOTE | 2022-12-02 11:35 | Surgery Progress Note ---
Date of Service December 02, 2022 Assessment & Plan (1) SBO (small bowel obstruction): (2) Incisional hernia: Plan POD # 1 s/p open incisional hernia repair with mesh afebrile, vss moderate postop pain controlled NGT with 750 cc postop not passing flatus today, KUB yesterday preop still showing High grade SBO Plan: continue NGT to LIS Continue NPO can have some sips and chips Continue IV pain management as needed Highly encouraged OOB to chair and ambulation to help increase GI motility Pepcid changed to BID Continue IV fluids and IV antibotics repeat am labs while npo KUB in am continue medical management Dr. Mccarty has seen and examined pt, agrees with above. 12/02/2022 11: 37 Am, Dr. Mccarty F/U repair incision hernia with mesh, stable, passed some gas , no BM yet, continue treatment, keep NPO and NG tube, repeat KUB tomorrow, OOB pt may still have old scar inside abdomen, bas on hernia is small, could not see inside abdomen, pt may need surgery if SBO is not resolved in 3-4 days, , pt understood, I answered all questions, will F/U, Admission and Anticipated Discharge Date Admission Date: November 27, 2022 Supervising Physician Co-Signing Physician Notes Patient seen and examined, chart reviewed, case discussed with KENNETH Jamison and I agree with the assessment and plan as above. In brief, patient is a 56yo male with high grade SBO, incarcerated ventral hernia which was reduced in the ER. NGT placed to wall suction with large amount of liquid output - patient's pain, distention and nausea improving On exam he is ill in appearance, mild distress secondary to recent NGT placement Skin - intact, no rash HEENT - NC/AT, PERRL, MMM, NGT in place Heart - +S1/S2, regular Lungs - CTA anteriorly Abd - distended, diminished bowel sounds, tender to palpation in right mid abdomen, hernia reduced Ext - warm, well perfused Labs and images reviewed Assessment/Plan -Maintain NGT to LIWS -Appreciate General Surgery assistance -Pain control, anti-emetics -Empiric Zosyn for now (consider DC after 24 hours) -Remainder as above Subjective Patient reports complaining of drainage in his right eye. He also reports not having a BM today. 12/02/2022 11: 34 AM, DR. Mccarty F/U open repair incision hernia with mesh, POD 2, pt is stable, passed some gas, no BM yet, no fever, NG - 1300ml, Review of Systems Genitourinary: + problem reported (elevated Cr) Physical Exam Constitutional: WD/WN, vitals as above Eyes: PERRL, conjunctivae normal, anicteric sclerae Neck: trachea midline, no thyromegaly Respiratory: normal respiratory effort, lungs clear to auscultation Cardiovascular: RRR, no murmur, no edema Gastrointestinal (Abdomen): soft, mild tenderness at incision site, no rebound pain, no distend, BS +, the incision intact, no redness, Musculoskeletal: no cyanosis or clubbing, extremities motor strength 5/5 Neurologic: patellar DTR's 2+ bilat, sensation intact Psychiatric: A+Ox3, euthymic affect Results & Data ([facility]) Vital Signs (Past 12 Hours) Vital Signs Temp Pulse Resp BP Pulse Ox O2 Del Method 12/02/22 09:25 Room Air 12/02/22 07:39 37.3 C 65 16 144/89 H 92 Room Air Laboratory Results Abnormal lab results 12/02/22 12/02/22 Range/Units 09:29 09:29 RBC 4.65 L (4.70-6.10) M/uL RDW Std Deviation 48.0 H (36.4-46.3) fL Neut # (Auto) 8.77 H (1.40-6.50) K/uL Lymph # (Auto) 0.70 L (1.2-3.4) K/uL [place] # (Auto) 0.76 H (0.11-0.59) K/uL Anion Gap 13 H (3-11) BUN 39 H (6-23) mg/dl BUN/Creatinine Ratio 29.8 H (10-20) Glucose 133 H (70-99(Fasting)) mg/dl Diagnostic Findings KUB- SBO
[2022-12-02] MEDS ORDERED: chlorproMAZINE HCL 25 MG TAB PO ONE (22:15)
[2022-12-02] MEDS ORDERED: ARTIFICIAL TEARS OP PRN (22:22)
[2022-12-02] MEDS: ACETAMINOPHEN 1,000 MG/100 ML VIAL IV PRN (22:38)
[2022-12-03] MEDS: SODIUM CHLORIDE 0.9% 1000ML 1,000 ML IV SCH ×2 (01:14→12:11)
[2022-12-03] MEDS: FAMOTIDINE 20 MG in SYRINGE 3 ML IV SCH ×2 (08:05→19:51)
[2022-12-03 08:29] LABS: Basophils # (auto) 0.05 K/uL (0-0.2); Basophils % (auto) 0.7 %; Eosinophils # (auto) 0.11 K/uL (0-0.50); Eosinophils % (auto) 1.5 %; Hematocrit (blood only) 40.8 % (42.0-52.0); Hemoglobin 13.2 g/dl (14.0-18.0); Immature Granulocytes # (auto) 0.09 K/uL (0.01-0.20); Immature Granulocytes % (auto) 1.2 %; Lymphocytes # (auto) 1.26 K/uL (1.2-3.4); Lymphocytes % (auto) 16.9 %; Mean Corpuscular Hemoglobin 30.1 pg (25.0-34.0); Mean Corpuscular Hgb Conc 32.4 g/dL (32.0-36.0); Mean Corpuscular Volume 93.2 fL (80.0-100.0); Mean Platelet Volume 11.8 fL (9.4-12.4); Monocytes # (auto) 0.64 K/uL (0.11-0.59); Monocytes % (auto) 8.6 %; Neutrophils % (auto) 71.1 %; Platelet Count 151 K/uL (130-400); RDW Coefficient of Variation 14.4 % (11.5-14.5); RDW Standard Deviation 49.6 fL (36.4-46.3); Red Blood Count 4.38 M/uL (4.70-6.10); White Blood Count 7.45 K/ul (4.8-10.8)
[2022-12-03 09:16] LABS: Albumin Globulin Ratio 1.5 (0.9-2); Albumin Level 3.5 gm/dl (3.4-5.0); BUN Creatinine Ratio 31.7 (10-20); Bilirubin,Total 1.3 mg/dl (0.2-1.0); Calcium 9.6 mg/dl (8.5-10.1); Creatinine Clr Calc Pharmacy 72.1 ml/min; Est GFR (African American) 76.7 ml/min; Est GFR (Non-African American) 66.1 ml/min; Globulin 2.4 gm/dl (2.5-4.0); Potassium 3.2 mmol/L (3.5-5.1); Total Protein 5.9 gm/dl (6.0-8.3)
--- NOTE | 2022-12-03 09:22 | Surgery Progress Note ---
Date of Service December 03, 2022 Assessment & Plan (1) SBO (small bowel obstruction): (2) Incisional hernia: Plan POD # 3 s/p open incisional hernia repair with mesh afebrile, vss postop pain controlled NGT with 550 cc last night, per nurse might be drinking alot of water and ice chips + flatus this morning KUB still showing dilated small bowel but his abdomen is less distended, soft and passing flatus , ? ileus Plan: Will try clamp trial for 4 hours and recheck residuals likely keep NGT for today ice chips only, no sips of water highly encouraged ambulating room Continue pain management as needed, try to limit narcotics continue medical management [facility] surgery covering this weekend Dr. Mccarty has seen and examined pt agrees with above. Admission and Anticipated Discharge Date Admission Date: November 27, 2022 Subjective states he is feeling better today passing gas which he was not yesterday abdomen feels less firm today pain better Per nurse, feels as thought he is taking in a lot of ice chips and water. Physical Exam Constitutional: WD/WN, vitals as above + obese, cooperative and comfortable; no acute distress and not ill appearing Neck: normal visual inspection and trachea midline Respiratory: normal respiratory effort; no respiratory distress and no labored breathing Gastrointestinal (Abdomen): Inspection/Auscultation: abdomen normal to inspection, + abdomen distended (mild to moderate) and + hypoactive bowel sounds; + abnormal bowel sounds Percussion/Palpation: + abdomen tender (at RUQ incision site) and abdomen soft; no guarding and abdomen not rigid NGT with dark bilious/brown output in cannister Skin: no rashes, warm and dry Psychiatric: Orientation: alert and oriented x 3 Results & Data ([facility]) Vital Signs (Past 12 Hours) Vital Signs Temp Pulse Resp BP BP Pulse Ox O2 Del Method 12/03/22 08:03 36.7 C 57 L 18 141/84 H 97 Room Air 12/02/22 22:06 37.2 C 60 16 145/83 H 95 Room Air Laboratory Results 12/03/22 12/03/22 Range/Units 08:08 08:08 WBC 7.45 (4.8-10.8) K/ul RBC 4.38 L (4.70-6.10) M/uL Hgb 13.2 L (14.0-18.0) g/dl Hct 40.8 L (42.0-52.0) % MCV 93.2 (80.0-100.0) fL MCH 30.1 (25.0-34.0) pg MCHC 32.4 (32.0-36.0) g/dL RDW Std Deviation 49.6 H (36.4-46.3) fL RDW Coeff of [place] 14.4 (11.5-14.5) % Plt Count 151 (130-400) K/uL MPV 11.8 (9.4-12.4) fL Immature Gran % (Auto) 1.2 % Neut % (Auto) 71.1 % Lymph % (Auto) 16.9 % [place] % (Auto) 8.6 % Eos % (Auto) 1.5 % Baso % (Auto) 0.7 % Neut # (Auto) 5.30 (1.40-6.50) K/uL Lymph # (Auto) 1.26 (1.2-3.4) K/uL [place] # (Auto) 0.64 H (0.11-0.59) K/uL Eos # (Auto) 0.11 (0-0.50) K/uL Baso # (Auto) 0.05 (0-0.2) K/uL Immature Gran # (Auto) 0.09 (0.01-0.20) K/uL Sodium 144 (136-145) mmol/L Potassium 3.2 L (3.5-5.1) mmol/L Chloride 106 (98-107) mmol/L Carbon Dioxide 30 (21-32) mmol/L Anion Gap 8 (3-11) BUN 39 H (6-23) mg/dl Creatinine 1.23 (0.6-1.4) mg/dl Est Cr Clr Drug Dosing 72.1 ml/min Est GFR ( Amer) 76.7 ml/min Est GFR (Non-Af Amer) 66.1 ml/min BUN/Creatinine Ratio 31.7 H (10-20) Glucose 107 H (70-99(Fasting)) mg/dl Calcium 9.6 (8.5-10.1) mg/dl Total Bilirubin 1.3 H (0.2-1.0) mg/dl AST 14 (13-39) U/L ALT 17 (7-52) U/L Alkaline Phosphatase 48 (34-104) U/L Total Protein 5.9 L (6.0-8.3) gm/dl Albumin 3.5 (3.4-5.0) gm/dl Globulin 2.4 L (2.5-4.0) gm/dl Albumin/Globulin Ratio 1.5 (0.9-2) Diagnostic Findings KUB CLINICAL HISTORY: Small bowel obstruction. COMPARISON STUDY: CT of the abdomen and pelvis November 19, 2022 and KUB December 02, 2022. FINDINGS: Tip of nasogastric tube is within the gastric fundus. There are cholecystectomy clips. Skin weston are noted. Small bowel dilatation has progressed. Small bowel loops measure up to 6.2 cm in caliber. Scattered gas within the colon and rectum is present. IMPRESSION: Increase in small bowel dilatation. The radiographic appearance favors a small bowel obstruction. However, a postoperative ileus could appear similar.
--- NOTE | 2022-12-03 11:45 | XRay Report ---
KUB CLINICAL HISTORY: Small bowel obstruction. COMPARISON STUDY: CT of the abdomen and pelvis November 19, 2022 and KUB December 02, 2022. FINDINGS: Tip of nasogastric tube is within the gastric fundus. There are cholecystectomy clips. Skin weston are noted. Small bowel dilatation has progressed. Small bowel loops measure up to 6.2 cm in caliber. Scattered gas within the colon and rectum is present. IMPRESSION: Increase in small bowel dilatation. The radiographic appearance favors a small bowel ob struction. However, a postoperative ileus could appear similar. ACT 112: Negative or not required by law. Electronically signed by: José Miguel Sam M.D. 12/03/2022 11:42 AM
[2022-12-03] MEDS: D5W AND 1/2NSS + 20MEQ KCL 20 MEQ/1,000 ML BAG IV SCH ×2 (12:34→22:39)
--- NOTE | 2022-12-03 18:03 | Hospitalist Progress Note ---
Date of Service December 03, 2022 Assessment & Plan (1) SBO (small bowel obstruction): Plan: Acute on presentation, significant risk to patient, treated with surgical hernia repair and mesh risk is reducing a moderate risk NG tube continues with surgery managing -CT of the abd/pelvis WO contrast showed a "incarcerated short segment of distal small bowel within the right anterior abdominal wall" causing a high-grade SBO -IV tylenol IV morphine for pain --General surgery, s/p open incisional hernia repair with mesh, following patient managing NG tube and diet advancement, KUB shows persistent small bowel gas may be ileus postoperatively acute conjunctivitis, may be viral, as it doesn't appear to be purulent (2) HTN (hypertension): Plan: -Chronic stable prn IV antihypertensives while NPO will restart coreg as soon as able monitor for rebound tachycardia (3) GERD (gastroesophageal reflux disease): Plan: -Hold omeprazole while NPO -on famotidine Admission and Anticipated Discharge Date Admission Date: November 27, 2022 Subjective pt has resolution of hiccups, still with ngt and some nose and throat discomfort Physical Exam Physical Exam: Patient's abdomen is distended and tympanitic it is tender it is a binder in place His lungs are diminished at the bases but otherwise clear Results & Data Results & Data ([facility]) Vital Signs (Past 12 Hours) Vital Signs Temp Pulse Resp BP BP Pulse Ox O2 Del Method 12/03/22 15:55 98.2 F 53 L 16 158/87 H 95 Room Air 12/03/22 08:03 98.1 F 57 L 18 141/84 H 97 Room Air Diagnostic Findings Reviewed CBC Reviewed PRP PG Care Time/CCT Total # of Minutes Spent Total Time Spent with Patient: Total time spent is greater than 50% in coordination of care (as documented) at patient's floor/unit and/or counseling patient: Coding Level of Care Code 52788 SUB INP/OBS CARE 2/35MIN Diagnoses SBO (small bowel obstruction) K56.609 HTN (hypertension) I10 GERD (gastroesophageal reflux disease) K21.9
--- NOTE | 2022-12-04 05:51 | Surgery Progress Note ---
Date of Service December 04, 2022 Assessment & Plan (1) Incisional hernia: Plan: Status post repair of incisional hernia on 11/30/2022 (postop day #4) Continue n.p.o. status and continue NG tube until output is decreased (may attempt a NG tube clamping trial) Continue ambulation Continue analgesics Continue antiemetics as needed Check a.m. labs when available Admission and Anticipated Discharge Date Admission Date: November 27, 2022 Supervising Physician Co-Signing Physician Notes I personally saw and evaluated the patient with Harshil Pereira PA-C and agree with the assessment and plan. 56-year-old male status post open incisional hernia repair He states he is passing some flatus with no bowel movement He still has high NG tube output and it does look bile tinged We will keep the NG tube in today as there was also concern from nursing about him taking water and while in the bathroom I did discuss with him that this will artificially increase the NG tube output and delay removal Subjective Patient is resting comfortably in bed. He says he is passing flatus but has not had a bowel movement since surgery. He denies significant abdominal pain. No nausea or vomiting. Physical Exam Gastrointestinal (Abdomen): Bowel sounds are hypoactive and abdomen is slightly distended. Incisions are clean, dry, intact. Appropriate pain is noted with palpation near surgical incisions Results & Data ([facility]) Vital Signs (Past 12 Hours) Vital Signs Temp Pulse Resp BP Pulse Ox O2 Del Method 12/03/22 19:51 Room Air 12/03/22 21:29 36.8 C 56 L 16 146/94 H 96 Room Air PG Care Time/CCT Total # of Minutes Spent Total Time Spent with Patient: Total time spent is greater than 50% in coordination of care (as documented) at patient's floor/unit and/or counseling patient: Coding Level of Care Code None Diagnoses Incisional hernia K43.2
[2022-12-04 07:20] LABS: Basophils # (auto) 0.07 K/uL (0-0.2); Basophils % (auto) 0.9 %; Eosinophils # (auto) 0.26 K/uL (0-0.50); Eosinophils % (auto) 3.2 %; Hematocrit (blood only) 39.9 % (42.0-52.0); Immature Granulocytes # (auto) 0.09 K/uL (0.01-0.20); Immature Granulocytes % (auto) 1.1 %; Lymphocytes # (auto) 1.43 K/uL (1.2-3.4); Lymphocytes % (auto) 17.6 %; Mean Corpuscular Hemoglobin 30.4 pg (25.0-34.0); Mean Corpuscular Hgb Conc 32.6 g/dL (32.0-36.0); Mean Corpuscular Volume 93.2 fL (80.0-100.0); Mean Platelet Volume 12.1 fL (9.4-12.4); Monocytes # (auto) 0.69 K/uL (0.11-0.59); Monocytes % (auto) 8.5 %; Neutrophils % (auto) 68.7 %; Platelet Count 160 K/uL (130-400); RDW Coefficient of Variation 14.3 % (11.5-14.5); RDW Standard Deviation 48.9 fL (36.4-46.3); Red Blood Count 4.28 M/uL (4.70-6.10); White Blood Count 8.14 K/ul (4.8-10.8)
[2022-12-04 07:46] LABS: BUN Creatinine Ratio 25.9 (10-20); Calcium 9.5 mg/dl (8.5-10.1); Creatinine Clr Calc Pharmacy 76.5 ml/min; Est GFR (African American) 82.3 ml/min; Potassium 3.2 mmol/L (3.5-5.1)
[2022-12-04] MEDS: D5W AND 1/2NSS + 20MEQ KCL 20 MEQ/1,000 ML BAG IV SCH ×2 (08:19→18:24)
[2022-12-04] MEDS: FAMOTIDINE 20 MG in SYRINGE 3 ML IV SCH ×2 (08:19→19:37)
[2022-12-04] MEDS ORDERED: MAGNESIUM SULFATE / D5W 1 GM/100 ML BAG IV ONE (08:42)
--- NOTE | 2022-12-04 08:44 | Hospitalist Progress Note ---
Date of Service December 04, 2022 Assessment & Plan (1) SBO (small bowel obstruction): Plan: Acute on presentation, significant risk to patient, treated with surgical hernia repair and mesh risk is reducing a moderate risk NG tube continues with surgery managing -CT of the abd/pelvis WO contrast showed a "incarcerated short segment of distal small bowel within the right anterior abdominal wall" causing a high-grade SBO -IV tylenol IV morphine for pain --General surgery, s/p open incisional hernia repair with mesh, following patient managing NG tube and diet advancement, KUB shows persistent small bowel gas may be ileus postoperatively will try some reglan and follow surgeries lead acute conjunctivitis, may be viral, resolved (2) HTN (hypertension): Plan: -Chronic stable prn IV antihypertensives while NPO will restart coreg as soon as able monitor for rebound tachycardia (3) GERD (gastroesophageal reflux disease): Plan: -Hold omeprazole while NPO -on famotidine Admission and Anticipated Discharge Date Admission Date: November 27, 2022 Subjective pt is discouraged about lack of progress, still with ileus and distension Physical Exam Physical Exam: Patient's abdomen is distended and tympanitic it is tender it is a binder in place His lungs are diminished at the bases but otherwise clear Results & Data Results & Data ([facility]) Vital Signs (Past 12 Hours) Vital Signs Temp Pulse Resp BP Pulse Ox O2 Del Method 12/04/22 07:35 97.7 F 63 16 146/82 H 94 Room Air 12/03/22 21:29 98.2 F 56 L 16 146/94 H 96 Room Air PG Care Time/CCT Total # of Minutes Spent Total Time Spent with Patient: Total time spent is greater than 50% in coordination of care (as documented) at patient's floor/unit and/or counseling patient: Coding Level of Care Code 55885 SUB INP/OBS CARE 2/35MIN Diagnoses SBO (small bowel obstruction) K56.609 HTN (hypertension) I10 GERD (gastroesophageal reflux disease) K21.9
[2022-12-04] MEDS: POTASSIUM CHLORIDE / WTR 10 MEQ/100 ML PLCT IV SCH ×3 (09:02→10:54)
[2022-12-04] MEDS: METOCLOPRAMIDE HCL INJ 5 MG/ML 2 ML VIAL IV SCH (22:55)
[2022-12-05] MEDS: D5W AND 1/2NSS + 20MEQ KCL 20 MEQ/1,000 ML BAG IV SCH ×2 (04:01→16:09)
--- NOTE | 2022-12-05 05:21 | Surgery Progress Note ---
Date of Service December 05, 2022 Assessment & Plan (1) Incisional hernia: Plan: Status post repair of incisional hernia on 11/30/2022 (postop day #5) Continue n.p.o. status for the present time Continue NG tube output for the present time due to high output. It is unclear if the output is accurate as the patient is eating ice chips, although he claims he is only having a few ice chips at a time. Prior to moving NG tube it may be prudent to perform a clamping trial. Continue ambulation Continue analgesics Continue antiemetics as needed Hypokalemia noted on yesterday's labs was repleted by the primary service. Admission and Anticipated Discharge Date Admission Date: November 27, 2022 Supervising Physician Co-Signing Physician Notes I personally saw and evaluated the patient with Harshil Pereira PA-C and agree with the assessment and plan. 56-year-old male status post open incisional hernia repair He continues to pass flatus with minimal abdominal pain He still has high NG tube output, will clamp trial today with possible removal later We will continue to follow Subjective Patient is resting comfortably in bed. He denies any nausea or vomiting. He says he is passing flatus but has not had a bowel movement since surgery. He says that he is ambulating in the hallway. The patient notes that he is only consuming occasional ice chips. He denies any other complaints at this time. Physical Exam Gastrointestinal (Abdomen): Abdomen is soft and nonrigid with minimal distention. Bowel sounds are hypoactive. Incisions are clean, dry, intact. Only slight pain noted with palpation. NG tube is in place and has drained approximately 1125 cc over the past 24 hours. Results & Data ([facility]) Vital Signs (Past 12 Hours) Vital Signs Temp Pulse Resp BP Pulse Ox O2 Del Method 12/04/22 23:01 36.9 C 66 18 133/87 93 Room Air 12/04/22 19:37 Room Air PG Care Time/CCT Total # of Minutes Spent Total Time Spent with Patient: Total time spent is greater than 50% in coordination of care (as documented) at patient's floor/unit and/or counseling patient: Coding Level of Care Code None Diagnoses Incisional hernia K43.2
[2022-12-05] MEDS: METOCLOPRAMIDE HCL INJ 5 MG/ML 2 ML VIAL IV SCH ×3 (06:13→22:35)
--- NOTE | 2022-12-05 07:55 | Hospitalist Progress Note ---
Date of Service December 05, 2022 Assessment & Plan (1) SBO (small bowel obstruction): Plan: Acute on presentation, significant risk to patient, treated with surgical hernia repair and mesh patient with significant postoperative ileus preventing advancement of oral intake -CT of the abd/pelvis WO contrast showed a "incarcerated short segment of distal small bowel within the right anterior abdominal wall" causing a high-grade SBO -IV tylenol IV morphine for pain --General surgery, s/p open incisional hernia repair with mesh, following patient managing NG tube and diet advancement, repeat KUB 12/05/2022 continues to show ileus with small bowel distention Is initiated peripheral nutrition with dietary consultation acute conjunctivitis, may be viral, resolved (2) HTN (hypertension): Plan: -Chronic stable prn IV antihypertensives while NPO will restart coreg as soon as able monitor for rebound tachycardia (3) GERD (gastroesophageal reflux disease): Plan: -Hold omeprazole while NPO -on famotidine Admission and Anticipated Discharge Date Admission Date: November 27, 2022 Subjective Patient was sleeping upon entering the room. Surgery is now clamping his NG tube. Patient still has some tympany and distention Physical Exam Physical Exam: Patient appears comfortable. He is distended and tympanitic he is not rigid or guarding he has no shortness of breath lungs are clear Results & Data Results & Data ([facility]) Vital Signs (Past 12 Hours) Vital Signs Temp Pulse Resp BP BP Pulse Ox O2 Del Method 12/05/22 07:38 98.4 F 61 16 146/86 H 96 Room Air 12/04/22 23:01 98.4 F 66 18 133/87 93 Room Air Laboratory Results Reviewed CBC Reviewed comprehensive metabolic panel Diagnostic Findings KUB continues to show ileus and small bowel distention PG Care Time/CCT Total # of Minutes Spent Total Time Spent with Patient: Total time spent is greater than 50% in coordination of care (as documented) at patient's floor/unit and/or counseling patient: Coding Level of Care Code 80466 SUB INP/OBS CARE MIN Diagnoses SBO (small bowel obstruction) K56.609 HTN (hypertension) I10 GERD (gastroesophageal reflux disease) K21.9
[2022-12-05] MEDS: FAMOTIDINE 20 MG in SYRINGE 3 ML IV SCH ×2 (08:05→21:11)
--- NOTE | 2022-12-05 10:15 | XRay Report ---
KUB CLINICAL HISTORY: Ileus. FINDINGS: 4 AP supine abdominal radiographs are compared to study dated 12/03/2022 and correlated with abdominal CT dated 11/27/2022. Skin clips and cholecystectomy clips project over the right upper quadr ant. An enteric tube tube projects over the proximal stomach. The side holes are likely above the megan phragm. There is persistent gaseous distention of the small bowel with loops measuring up to 4.7 cm i n diameter. No evidence of intraperitoneal free air is seen on these supine images. Phleboliths are n oted in the pelvis. The bony structures appear intact. The heart is enlarged. IMPRESSION: 1. There is significant persistent gaseous distention of the small bowel loops which is similar to th e 12/03/2022 examination. This could represent postoperative ileus versus persistent obstruction. Clini analy correlation will be required. 2. Enteric tube positioning as above. This should likely be advanced. Electronically signed by: lA Greenberg M.D. 12/05/2022 10:13 AM
[2022-12-05 13:09] LABS: Hematocrit (blood only) 42.7 % (42.0-52.0); Hemoglobin 14.4 g/dl (14.0-18.0); Mean Corpuscular Hgb Conc 33.7 g/dL (32.0-36.0); Mean Corpuscular Volume 91.8 fL (80.0-100.0); Mean Platelet Volume 11.7 fL (9.4-12.4); Platelet Count 191 K/uL (130-400); RDW Coefficient of Variation 14.2 % (11.5-14.5); RDW Standard Deviation 47.8 fL (36.4-46.3); Red Blood Count 4.65 M/uL (4.70-6.10); White Blood Count 7.53 K/ul (4.8-10.8)
[2022-12-05] MEDS ORDERED: TPN/PPN CONSULT PHARMACY PRN (13:19)
[2022-12-05 13:31] LABS: BUN Creatinine Ratio 18.9 (10-20); Calcium 9.2 mg/dl (8.5-10.1); Creatinine Clr Calc Pharmacy 83.7 ml/min; Est GFR (African American) 91.8 ml/min; Est GFR (Non-African American) 79.2 ml/min; Magnesium 1.8 mg/dl (1.7-2.4); Potassium 3.7 mmol/L (3.5-5.1)
--- NOTE | 2022-12-05 13:55 | Pharmacy Report ---
Pharmacy PN Initial Consult - Date of Service December 05, 2022 - Scope Pharmacy has been consulted to manage parenteral nutrition orders and order appropriate labs. As part of the Nutrition Support Team guidelines, pharmacy will work in conjunction with dietary when determining the patients caloric needs. - Subjective The patient is a 56 year old M admitted on 11/27/22 19:39 for ABDOMINAL PAIN. Patient is to receive parenteral nutrition prolonged NPO status/SBO, s/p hernia surgery - Objective Height: 5 ft 6 in Weight: 90 kg Diet: NPO Intake & Output (Last 24Hrs): Intake & Output 12/03/22 12/04/22 12/05/22 12/06/22 06:59 06:59 06:59 06:59 Intake Total 1983.333 / 2257.700 9065 / 1999 3345.000 / 3345.000 Output Total 1950 / 1950 2225 / 2225 1575 / 1575 275 / 275 Balance 33.333 / 33.333 -225 / -225 1770.000 / 1770.000 -275 / -275 Weight 90 kg 90 kg Laboratory Data (Last 24 Hrs):: 12/05/22 12:58 Sodium 138 Potassium 3.7 Chloride 104 Carbon Dioxide 30 BUN 20 Creatinine 1.06 Glucose 121 H Calcium 9.2 Phosphorus 3.0 Magnesium 1.8 Total Bilirubin 1.0 AST 19 ALT 26 Alkaline Phosphatase 53 Triglycerides 170 H Nutrition Assessment:: Please refer to the Notes section of the EMR for the most recent dolphin trainer note. - Plan For day 1 of PN administration, the following will be ordered. Patient NPO >5 days and is s/p hernia repair. Potential concerns for refeeding, therefore will be conservative today with macronutrients/dextrose Macronutrients Amino acids 85 grams/day Dextrose 100 grams/day Lipids -- grams/day Micronutrients Sodium chloride 70 mEq Sodium acetate 70 mEq Potassium phosphate 21 mMol Magnesium sulfate 8.12 mEq Calcium gluconate 4.65 mEq Multivitamins 10 mL Trace Elements 10 mL Additional additives: thiamine 100 mg Total volume 2094 mL to be infused over 24 hrs will provide ~680 kcal/day Final osmolarity 810 mOsm/L (maximum for PPN is 900 mOsm/L) Labs to be ordered per PN order protocol Pharmacy will follow and adjust parenteral nutrition orders on a daily basis. Thank you.
[2022-12-05] MEDS ORDERED: PERIPHERAL TPN IV SCH (16:00)
[2022-12-05] MEDS ORDERED: AMINO ACIDS 4.25% IV SCH (16:00)
[2022-12-05] MEDS ORDERED: D5W IV SCH (16:00)
[2022-12-05] MEDS ORDERED: [UNRECOGNIZED DRUG - REMARK] ONE (16:00)
[2022-12-05] MEDS ORDERED: DEXTROSE 10% 1,000 ML IV PRN (16:00)
[2022-12-06] MEDS: METOCLOPRAMIDE HCL INJ 5 MG/ML 2 ML VIAL IV SCH ×3 (06:17→22:17)
[2022-12-06 07:15] LABS: Hematocrit (blood only) 40.9 % (42.0-52.0); Hemoglobin 13.3 g/dl (14.0-18.0); Mean Corpuscular Hgb Conc 32.5 g/dL (32.0-36.0); Mean Corpuscular Volume 92.3 fL (80.0-100.0); Mean Platelet Volume 11.8 fL (9.4-12.4); Platelet Count 186 K/uL (130-400); RDW Coefficient of Variation 14.2 % (11.5-14.5); RDW Standard Deviation 48.1 fL (36.4-46.3); Red Blood Count 4.43 M/uL (4.70-6.10); White Blood Count 7.43 K/ul (4.8-10.8)
[2022-12-06] MEDS: FAMOTIDINE 20 MG in SYRINGE 3 ML IV SCH ×2 (08:07→21:18)
[2022-12-06 09:40] LABS: BUN Creatinine Ratio 23.8 (10-20); Calcium 9.2 mg/dl (8.5-10.1); Creatinine Clr Calc Pharmacy 84.5 ml/min; Est GFR (African American) 92.8 ml/min; Est GFR (Non-African American) 80.1 ml/min; Magnesium 1.9 mg/dl (1.7-2.4); Phosphorus 3.6 mg/dl (2.5-4.9); Potassium 3.6 mmol/L (3.5-5.1)
--- NOTE | 2022-12-06 09:41 | Surgery Progress Note ---
Date of Service December 06, 2022 Assessment & Plan (1) SBO (small bowel obstruction): (2) Incisional hernia: Plan POD # 3 s/p open incisional hernia repair with mesh afebrile, vss postop pain controlled NGT with 550 cc last night, per nurse might be drinking alot of water and ice chips + flatus this morning KUB still showing dilated small bowel but his abdomen is less distended, soft and passing flatus , ? ileus Plan: Will try clamp trial for 4 hours and recheck residuals likely keep NGT for today ice chips only, no sips of water highly encouraged ambulating room Continue pain management as needed, try to limit narcotics continue medical management [facility] surgery covering this weekend Dr. Mccarty has seen and examined pt agrees with above. 12/06/2022 9:41 AM Lul Muñoz SBO resolved, full liquid diet, will F/U Admission and Anticipated Discharge Date Admission Date: November 27, 2022 Supervising Physician Co-Signing Physician Notes I personally saw and evaluated the patient with Harshil Peerira PA-C and agree with the assessment and plan. 56-year-old male status post open incisional hernia repair He continues to pass flatus with minimal abdominal pain He still has high NG tube output, will clamp trial today with possible removal later We will continue to follow Subjective Patient was sleeping upon entering the room. Surgery is now clamping his NG tube. Patient still has some tympany and distention 12/06/2022 9:39AM, Dr. Mccarty, F/U SBO, pt is doing better, passed gas and BM, tolerated clear diet, no abdominal pain, no N/V, no fever, Review of Systems Genitourinary: + problem reported (elevated Cr) Physical Exam Constitutional: WD/WN, vitals as above Eyes: PERRL, conjunctivae normal, anicteric sclerae Neck: trachea midline, no thyromegaly Respiratory: normal respiratory effort, lungs clear to auscultation Cardiovascular: RRR, no murmur, no edema Gastrointestinal (Abdomen): soft, NT, ND, BS +, the incision site intact, no redness, Musculoskeletal: no cyanosis or clubbing, extremities motor strength 5/5 Neurologic: patellar DTR's 2+ bilat, sensation intact Psychiatric: A+Ox3, euthymic affect Results & Data ([facility]) Vital Signs (Past 12 Hours) Vital Signs Temp Pulse Resp BP Pulse Ox O2 Del Method 12/06/22 07:36 36.8 C 68 16 132/78 95 Room Air Laboratory Results Abnormal lab results 12/05/22 12/05/22 12/05/22 Range/Units 12:58 12:58 18:28 RBC 4.65 L (4.70-6.10) M/uL Hgb (14.0-18.0) g/dl Hct (42.0-52.0) % RDW Std Deviation 47.8 H (36.4-46.3) fL Glucose 121 H (70-99(Fasting)) mg/dl POC Glucose 129 H (70-99) mg/dl Triglycerides 170 H (0-150) mg/dl 12/05/22 12/06/22 12/06/22 Range/Units 23:59 06:58 07:02 RBC 4.43 L (4.70-6.10) M/uL Hgb 13.3 L (14.0-18.0) g/dl Hct 40.9 L (42.0-52.0) % RDW Std Deviation 48.1 H (36.4-46.3) fL Glucose (70-99(Fasting)) mg/dl POC Glucose 111 H 112 H (70-99) mg/dl Triglycerides (0-150) mg/dl Diagnostic Findings KUB CLINICAL HISTORY: Ileus. FINDINGS: 4 AP supine abdominal radiographs are compared to study dated 12/03/2022 and correlated with abdominal CT dated 11/27/2022. Skin clips and cholecystectomy clips project over the right upper quadrant. An enteric tube tube projects over the proximal stomach. The side holes are likely above the diaphragm. There is persistent gaseous distention of the small bowel with loops measuring up to 4.7 cm in diameter. No evidence of intraperitoneal free air is seen on these supine images. Phleboliths are noted in the pelvis. The bony structures appear intact. The heart is enlarged. IMPRESSION: 1. There is significant persistent gaseous distention of the small bowel loops which is similar to the 12/03/2022 examination. This could represent postoperative ileus versus persistent obstruction. Clinical correlation will be required. 2. Enteric tube positioning as above. This should likely be advanced.
[2022-12-06] MEDS ORDERED: AMINO ACIDS 4.25% IV SCH (16:00)
[2022-12-06] MEDS ORDERED: D5W IV SCH (16:00)
[2022-12-06] MEDS ORDERED: CLINOLIPID 20% IV FAT EMULSION 250 ML IV SCH (16:00)
[2022-12-06] MEDS ORDERED: PERIPHERAL TPN IV SCH (16:00)
--- NOTE | 2022-12-06 16:03 | Hospitalist Progress Note ---
Date of Service December 06, 2022 Assessment & Plan (1) SBO (small bowel obstruction): Plan: Acute on presentation, significant risk to patient, treated with surgical hernia repair and mesh patient with significant postoperative ileus preventing advancement of oral intake -CT of the abd/pelvis WO contrast showed a "incarcerated short segment of distal small bowel within the right anterior abdominal wall" causing a high-grade SBO -IV tylenol IV morphine for pain --General surgery, s/p open incisional hernia repair with mesh, ngt removed advancing diet acute conjunctivitis, may be viral, resolved (2) HTN (hypertension): Plan: -Chronic stable prn IV antihypertensives while NPO will restart coreg as soon as able monitor for rebound tachycardia (3) GERD (gastroesophageal reflux disease): Plan: -Hold omeprazole while NPO -on famotidine Admission and Anticipated Discharge Date Admission Date: November 27, 2022 Subjective Patient was sleeping upon entering the room. Surgery d/c NG tube. advanced diet pt is doing better, passed gas and BM, tolerating clear diet, no abdominal pain, no N/V, no fever, Physical Exam Physical Exam: Patient appears comfortable. He is less distended he is not rigid or guarding he has no shortness of breath lungs are clear Results & Data Results & Data ([facility]) Vital Signs (Past 12 Hours) Vital Signs Temp Pulse Resp BP BP Pulse Ox O2 Del Method 12/06/22 15:07 98.8 F 78 16 142/88 H 96 Room Air 12/06/22 07:36 98.2 F 68 16 132/78 95 Room Air Laboratory Results reviewed cbc reviewed chemistry PG Care Time/CCT Total # of Minutes Spent Total Time Spent with Patient: Total time spent is greater than 50% in coordination of care (as documented) at patient's floor/unit and/or counseling patient: Coding Level of Care Code 67344 SUB INP/OBS CARE 2/35MIN Diagnoses SBO (small bowel obstruction) K56.609 HTN (hypertension) I10 GERD (gastroesophageal reflux disease) K21.9
[2022-12-06] MEDS ORDERED: STOP CLINOLIPID SCH (22:00)
[2022-12-07 08:11] LABS: BUN Creatinine Ratio 21.8 (10-20); Calcium 9.6 mg/dl (8.5-10.1); Creatinine Clr Calc Pharmacy 71.6 ml/min; Est GFR (African American) 75.9 ml/min; Est GFR (Non-African American) 65.5 ml/min; Magnesium 1.8 mg/dl (1.7-2.4); Phosphorus 3.6 mg/dl (2.5-4.9); Potassium 3.9 mmol/L (3.5-5.1)
[2022-12-07] MEDS: FAMOTIDINE 20 MG in SYRINGE 3 ML IV SCH ×2 (08:17→20:06)
[2022-12-07] MEDS: METOCLOPRAMIDE HCL INJ 5 MG/ML 2 ML VIAL IV SCH ×3 (08:17→23:46)
--- NOTE | 2022-12-07 13:24 | Surgery Progress Note ---
Date of Service December 07, 2022 Assessment & Plan (1) SBO (small bowel obstruction): (2) Incisional hernia: Plan POD # 3 s/p open incisional hernia repair with mesh afebrile, vss postop pain controlled NGT with 550 cc last night, per nurse might be drinking alot of water and ice chips + flatus this morning KUB still showing dilated small bowel but his abdomen is less distended, soft and passing flatus , ? ileus Plan: Will try clamp trial for 4 hours and recheck residuals likely keep NGT for today ice chips only, no sips of water highly encouraged ambulating room Continue pain management as needed, try to limit narcotics continue medical management [facility] surgery covering this weekend Dr. Mccarty has seen and examined pt agrees with above. 12/06/2022 9:41 AM Lul Muñoz SBO resolved, full liquid diet, will F/U 12/07/2022 1:21 PM Lul Muñoz SBO resolved, regular diet, pt can be discharged today or tomorrow, pt can take a shower tomorrow, no heavy lift > 10 LBS for 4 week, F/U me 2-3 weeks for remove staplers, sign off today, please call with questions, Thanks, Admission and Anticipated Discharge Date Admission Date: November 27, 2022 Supervising Physician Co-Signing Physician Notes I personally saw and evaluated the patient with Harshil Pereira PA-C and agree with the assessment and plan. 56-year-old male status post open incisional hernia repair He continues to pass flatus with minimal abdominal pain He still has high NG tube output, will clamp trial today with possible removal later We will continue to follow Subjective Patient was sleeping upon entering the room. Surgery d/c NG tube. advanced diet pt is doing better, passed gas and BM, tolerating clear diet, no abdominal pain, no N/V, no fever, 12/07/2022 1:[address] Mccarty pt is doing fine, tolerated diet, no abdominal pain, no nausea, no vomiting, no fever, Review of Systems Genitourinary: + problem reported (elevated Cr) Physical Exam Constitutional: WD/WN, vitals as above Eyes: PERRL, conjunctivae normal, anicteric sclerae Neck: trachea midline, no thyromegaly Respiratory: normal respiratory effort, lungs clear to auscultation Cardiovascular: RRR, no murmur, no edema Gastrointestinal (Abdomen): soft, NT, Nd, the incision intact, no redness, BS +, Musculoskeletal: no cyanosis or clubbing, extremities motor strength 5/5 Neurologic: patellar DTR's 2+ bilat, sensation intact Psychiatric: A+Ox3, euthymic affect Results & Data ([facility]) Vital Signs (Past 12 Hours) Vital Signs Temp Pulse Resp BP Pulse Ox O2 Del Method 12/07/22 07:36 36.9 C 61 16 143/75 H 95 Room Air Laboratory Results Abnormal lab results 12/06/22 12/07/22 Range/Units 18:11 07:29 BUN 27 H (6-23) mg/dl BUN/Creatinine Ratio 21.8 H (10-20) Glucose 122 H (70-99(Fasting)) mg/dl POC Glucose 102 H (70-99) mg/dl
--- NOTE | 2022-12-07 16:01 | Hospitalist Progress Note ---
Date of Service December 07, 2022 Assessment & Plan (1) SBO (small bowel obstruction): Plan: Acute on presentation, significant risk to patient, treated with surgical hernia repair and mesh patient with significant postoperative ileus now tolerating advancement of oral intake -CT of the abd/pelvis WO contrast showed a "incarcerated short segment of distal small bowel within the right anterior abdominal wall" causing a high-grade SBO -IV tylenol IV morphine for pain --General surgery, s/p open incisional hernia repair with mesh, no vomiting since removal of NG tube continue to advance diet acute conjunctivitis, may be viral, resolved (2) HTN (hypertension): Plan: -Chronic stable prn IV antihypertensives while NPO restart coreg 12/08/2022 (3) GERD (gastroesophageal reflux disease): Plan: -Hold omeprazole while NPO -on famotidine Admission and Anticipated Discharge Date Admission Date: November 27, 2022 Subjective Patient improving on a full liquid diet. He is anxious that his bowel obstruction may recur I educated him that it likely will not at this time Anticipate return to retirement in the next 48 hours Physical Exam Physical Exam: Awake and in no distress Abdomen exam is with normal active bowel sounds slightly distended and tympanitic but not with tenderness rebound or guarding Results & Data Results & Data ([facility]) Vital Signs (Past 12 Hours) Vital Signs Temp Pulse Resp BP Pulse Ox O2 Del Method 12/07/22 07:36 98.4 F 61 16 143/75 H 95 Room Air PG Care Time/CCT Total # of Minutes Spent Total Time Spent with Patient: Total time spent is greater than 50% in coordination of care (as documented) at patient's floor/unit and/or counseling patient: Coding Level of Care Code 65858 SUB INP/OBS CARE 2/35MIN Diagnoses SBO (small bowel obstruction) K56.609 HTN (hypertension) I10 GERD (gastroesophageal reflux disease) K21.9
[2022-12-07] MEDS: carvediloL 3.125 MG TAB PO SCH (20:10)
[2022-12-08] MEDS: METOCLOPRAMIDE HCL INJ 5 MG/ML 2 ML VIAL IV SCH (06:10)
[2022-12-08] MEDS: FAMOTIDINE 20 MG in SYRINGE 3 ML IV SCH (08:50)
[2022-12-08] MEDS: carvediloL 3.125 MG TAB PO SCH (08:52)
[2022-12-08 08:58] LABS: Hematocrit (blood only) 39.9 % (42.0-52.0); Hemoglobin 13.2 g/dl (14.0-18.0); Mean Corpuscular Hemoglobin 30.6 pg (25.0-34.0); Mean Corpuscular Hgb Conc 33.1 g/dL (32.0-36.0); Mean Corpuscular Volume 92.4 fL (80.0-100.0); Mean Platelet Volume 12.4 fL (9.4-12.4); Platelet Count 164 K/uL (130-400); RDW Coefficient of Variation 14.2 % (11.5-14.5); RDW Standard Deviation 48.3 fL (36.4-46.3); Red Blood Count 4.32 M/uL (4.70-6.10); White Blood Count 8.81 K/ul (4.8-10.8)
[2022-12-08 09:38] LABS: Calcium 9.2 mg/dl (8.5-10.1); Magnesium 1.7 mg/dl (1.7-2.4); Potassium 4.1 mmol/L (3.5-5.1)
[2022-12-08 09:43] LABS: BUN Creatinine Ratio 16.8 (10-20); Creatinine Clr Calc Pharmacy 74.6 ml/min; Est GFR (African American) 79.8 ml/min; Est GFR (Non-African American) 68.8 ml/min; Phosphorus 3.3 mg/dl (2.5-4.9)
--- NOTE | 2022-12-08 11:47 | Discharge Summary ---
Date of Service December 08, 2022 Admission HPI Per Admitting Provider Eladio Palomino is a 56 year old male with a PMH significant for HTN, hyperlipidemia, GERD, and known RUQ abdominal hernia who presented to the [facility] ED from [facility] due to abdominal pain. Per the ED staff, the patient has a known abdominal wall hernia in the RUQ. He is typically able to easily reduce the hernia. Approximately 24 hours ago he developed severe abdominal pain and was unable to reduce his hernia. In the ED the patient was found to be afebrile, hemodynamically stable, and hypoxic at 84% NC. Labs were remarkable for a WBC WNL, stable hgb at 15.7, stable platelets at 190, cr of 1.83 (no previous r ecords for a baseline), calcium of 10.3, otherwise stable electrolytes, total bili of 1.1 otherwise LFTs WNL, and lipase of 11. CT of the abdomen/pelvis WO con was read as 1. High-grade small bowel obstruction secondary to an incarcerated short segment of distal small bowel within the right anterior abdominal wall hernia as described above. 2. Bilateral nephrolithiasis. No hydronephrosis. 3. Cholecystectomy. 4. Additional findings as described above.. Prior to admission the patient was given a 1L NSS bolus, 4mg IV Zofran, one dose of Zosyn, 4 mg IV morphine, and 0.5 mg IV dilaudid. The ED staff attempted to reduce the hernia after multiple doses of analgesia and were successful. General Surgery was consulted and recommended hospital admission, they will come evaluate to see the need to take him to the OR. At the time of the exam the patient was sitting in bed in acute distress due to his abdominal pain. A the start of the exam the patient has having an NG tube placed by the nursing staff. He states that he began to experience abdominal pain, nausea, and vomiting last night. He noticed that his right abdominal hernia was more enlarged, painful, and was unable to be reduced. His abdominal pain is currently a 10/10, his last bowel movement was this morning. He denies recent fever, chills, chest pain, SOB, dysuria, hematuria, and recent trauma. When asked, he does not think that he aspirated with his episodes of vomit. He has not had any of his medications since yesterday due to his symptoms. We discussed code status, he wishes to be a Full Code. Please refer to Dr. Rahman's attestation for any changes to the treatment plan Principal Diagnosis small bowel obstruction secondary to hernia incarceration open incisional hernia repair with mesh, 11/30/22 Discharge Exam PT is awake and alert abd is distended and tympanitic but not tender Discharge Data Allergies Allergy/AdvReac Type Severity Reaction Status Date / Time No Known Allergies Allergy Unverified 11/27/22 19:48 Consultations 11/27/22 18:47 Consult General Surgery Stat 11/27/22 19:02 ED Decision to Admit Stat Procedures Performed Operation Date: 11/30/22 12:25 Actual Procedures p Open Incisional Hernia Repair with Mesh(Right) - Belgica Mccarty MD Ordered Studies 11/27/22 17:30 CT abd pelvis wo con Stat Hospital Course (1) SBO (small bowel obstruction): Acute on presentation, significant risk to patient, treated with surgical hernia repair and mesh patient with significant postoperative ileus now tolerating advancement of oral intake -CT of the abd/pelvis WO contrast showed a "incarcerated short segment of distal small bowel within the right anterior abdominal wall" causing a high-grade SBO --General surgery, s/p open incisional hernia repair with mesh, tolerated advancing diet and did have bowel movement I spoke to [facility] ophthalmic medical technologist and they will accept back acute conjunctivitis, may be viral, resolved (2) HTN (hypertension): -Chronic stable restart coreg 12/08/2022 at lower dose hold lisinipril at d/c, [facility] was made aware of this change (3) GERD (gastroesophageal reflux disease): Total Time Total Time Spent Total Time Spent (In Minutes): it took greater than 30 minutes to complete discharge process Discharge Plan Discharge Items [facility]position[facility] Reason For Visit: ABDOMINAL PAIN Discharge Diagnosis: small bowel obstruction, secondary to hernia hernia repair and surgical reduction of small bowel obstruction Activity: Per Instructions section Non-emergency contact: Primary Care Provider Call non-emergency contact if: your symptoms worsen Follow-up/Referrals: Ashwin HERNANDEZ [Primary Care Provider] - Diet: Low Fiber Addtl Attending Provider Instructions: remain on a low fiber diet with good hydration Addtl Equipment Cleaner Provider Instructions: Post-Surgical ~Discharge Instructions Activity Recommendations: - lifting limitation: (10 pounds for 6 weeks), - exercise/sex/sports limit: (nonstrenuous for 2 weeks), - driving or machine use limit: (none for 1 week), - Shower/bathe limit: (may shower) Diet: - Resume previous diet SPECIAL CARE INSTRUCTIONS: - May shower in 24 hours. Let water run over area and pat dry. - Surgical weston should be removed in 2 weeks - Call the surgeon's office with any questions or concerns - - (ex. temperature higher than 101 degrees F, excessive bleeding or pain). MEDICATIONS: - Resume previous medications unless instructed otherwise by your surgeon. - Ibuprofen 600 mg every 6 hours with food - Tylenol 65) mg every 6 hours as needed FOLLOW UP VISIT: - If not already scheduled, please call the office to schedule a two week follow-up appointment. Office number Pending Studies at Discharge: No Stand-Alone Forms: My [facility] Skilled Items Patient informed of condition?: Yes Discharge Level of Care: Other Communicable Disease: No Discharge Prognosis: Stable Lines: None Urinary Catheter: No Medications and DC Order Prescriptions: New carvedilol 3.125 mg Tablet 3.125 mg PO BID Qty: 60 0RF Continued carvedilol 12.5 mg Tablet 12.5 mg PO BID Rx Instructions: must administer with a meal/food omeprazole 40 mg Capsule,Delayed Release(Dr/Ec) 40 mg PO DAILY Crestor 5 mg PO DAILY Discontinued chlorthalidone [Hygroton] 50 mg Tablet 50 mg PO DAILY potassium chloride [K-Dur] 20 mEq Tablet,Er Particles/Crystals 20 meq PO BID lisinopril 40 mg Tablet 40 mg PO DAILY Discharge Orders: Discharge Order (Routine); Ordered 12/08/22 Ordered By: Conrado Caldwell Admission Data Admit Date/Time: 11/27/22 19:39 Attending Provider: Conrado Caldwell Admit Provider: Rosy Rahman Primary Care Provider: Ashwin HERNANDEZ Other Providers: Marilee Ledesma ; Ghassan Fuentes Coding Level of Care Code HOSP INP/OBS DISCH >30 MIN Diagnoses SBO (small bowel obstruction) K56.609 HTN (hypertension) I10 GERD (gastroesophageal reflux disease) K21.9
--- NOTE | 2022-12-10 07:15 | Coding Query ---
Your help is needed for correct coding of this account; please clarify if the patients Post-operative Ileus was: (2/ progress note: KUB still shows dilated small bowel , may be ileus" . ) (xxx ) expected out of the surgery ( ) unexpected complication from the surgery ( )other please specify Thank you ALCIDES Whaley [facility]
== END 2022-12-08 13:27 | DRG 354 ==
LOC: ED 16:46 → SUATTDRO 19:39 → 2E 19:39 → 3W 11-30 15:45

== ENCOUNTER 2023-12-02 15:55 | Inpatient (IN) ==
[2023-12-02] MEDS ORDERED: MoRPHine SULFATE 4 MG/ML 1 ML CARP\\VIAL IV STA (16:25)
[2023-12-02] MEDS ORDERED: ONDANSETRON INJ 2 MG/ML 2 ML VIAL IV STA (16:25)
--- NOTE | 2023-12-02 16:29 | Emergency Department Note ---
Impression & Plan Choledocholithiasis, Chest pain, Abdominal pain, epigastric ED Provider Note NAME: JUAN FRANCISCO [id number] [facility]EST AGE: 57 SEX: M : 1965 ARRIVES VIA: Ambulance INFORMANT: Patient, ED PROVIDER(S): Rosalio Romero DO CHIEF COMPLAINT: Chest pain HPI: Patient is a 57-year-old male who presented from the retirement for evaluation of chest pain. The patient states he had fever chest pain as well as abdominal pain. Is been going on over the course of the week. He was seen at the [facility]. He had multiple EKGs done. He was sent to the emergency department for further evaluation. He states the pain has been pretty constant especially the last 24 hours. He does worsen with cough as well as with palpation of the lower abdomen. He has a history of a hernia repair that was done in our facility. He denies having any GI bleeding. ROS: See above HPI for pertinent positives & negatives. A total of 10 systems reviewed and were otherwise negative. PAST MEDICAL HISTORY: See Below PAST SURGICAL HISTORY: See Below FAMILY HISTORY: See Below SOCIAL HISTORY: See Below HOME MEDICATIONS: See Below ALLERGIES: See Below VITALS: See Below PHYSICAL EXAMINATION: GENERAL: Patient is awake alert in no acute distress patient is resting comfortably and showing no signs of anxiety EYES: The conjunctivae are clear. The pupils are round and reactive. EARS, NOSE, MOUTH AND THROAT: The nose is without any evidence of any deformity. Mucous membranes are moist. Tongue is midline. NECK: The neck is nontender and supple. RESPIRATORY: Normal respiratory effort is noted there is no evidence of wheezing rhonchi or rales CARDIOVASCULAR: Regular rate and rhythm noted there no murmurs rubs or gallops normal S1 normal S2. GASTROINTESTINAL: The abdomen is soft and nondistended. There is diffuse tenderness to palpation with guarding in the left lower quadrant. MUSCULOSKELETAL/EXTREMITIES: There is no evidence of gross deformity full range of motion is noted in the hips and shoulders. SKIN: There is no obvious evidence of any rash. There are no petechiae, pallor or cyanosis noted. NEUROLOGIC: Patient is awake alert and oriented x3 strength is symmetric patellar reflexes are 2+ bilaterally MEDICAL DECISION MAKING: The patient is a 57-year-old male who presented to the emergency department from the retirement for an evaluation of chest pain. The patient was also having upper abdominal pain. There is concerned that this could be related to venous thromboembolic disease. The patient's EKG did show some slight abnormalities but appears similar to previous. His cardiac biomarker is negative but his D- dimer is elevated. For this reason further radiographic studies were obtained including CT angiography of the chest and CT of the abdomen and pelvis. The patient has a history of prior cholecystectomy. He was found to have signs of choledocholithiasis but no signs of rubber mold maker. They have agreed to evaluate the patient for further management and disposition. Cholangitis by physical exam or by laboratory studies. I discussed the patient's condition with him. He was treated with pain medication and IV antibiotics. I discussed his condition with the on-call [facility] hospitalist as well as the on-call Triage Nursing notes reviewed. Prior medical records reviewed Vital Signs: reviewed and remarkable for elevated blood pressure. Differential diagnosis: Etiologies such as appendicitis, diverticulitis, obstruction, inflammatory bowel disease, renal colic, PUD, biliary pathology, pancreatitis, mesenteric ischemia, aortic pathology, infections, genitourinary, UTI, perforated viscus, as well as others were entertained. ER treatment provided: See below Diagnostics interpreted by me: ECG: EKG was obtained in the emergency department. My interpretation is sinus rhythm at 76 bpm. First-degree AV block was noted. There is no ectopy. Nonspecific ST depressions were noted in the inferior and lateral leads. This was compared to a tracing from April 22, 2021. No specific changes were noted. Prehospital EKG was evaluated. My interpretation is normal sinus rhythm at 80 bpm. First-degree block was noted. LVH was suggested by voltage criteria with ST depressions in the inferior lateral leads. This compares similar to the EKG obtained in the emergency department. EKGs from the retirement that accompany the patient were evaluated. My interpretation is normal sinus rhythm at 77 bpm. First-degree block is noted with LVH and ST segment depression in the inferior lateral leads. This compares similar to the tracing obtained in the emergency department. Cardiac Monitoring: An order was placed for continuous cardiac monitoring. The monitor shows a rate of 70 bpm with sinus rhythm. Laboratory studies: As stated above and show below. Imaging studies: See below. Radiographic imaging was reviewed by myself Consultation(s): I discussed this case with Dr. Rahman [facility] I discussed this case with Dr. Moser who was stone rubber for gastroenterology. Past Med/Surg History Medical History Incisional hernia GERD (gastroesophageal reflux disease) Hyperlipidemia HTN (hypertension) SBO (small bowel obstruction) Surgical History History of cholecystectomy Social History Smoking Status: Never smoker Second Hand Exposure: No; Do You Dip or Chew Tobacco: No; Hx Alcohol Use: No Hx Substance Use: No Preferred Language: Belarusian Communication Ability: Effective Concrete Bucket Hooker Required: No Beliefs That Will Affect Care: None Current Living Situation: Other Current Living Situation Comment: GROUP HOME Feels Safe at Home: Yes Assistive Devices: None Allergies Allergies Allergy/AdvReac Type Severity Reaction Status Date / Time No Known Allergies Allergy Unverified 11/27/22 19:48 Home Meds Home Medications Medication Instructions Recorded Confirmed Crestor 5 mg PO DAILY 11/27/22 11/27/22 carvedilol 12.5 mg tablet 12.5 mg PO BID 11/27/22 11/27/22 omeprazole 40 mg capsule,delayed 40 mg PO DAILY 11/27/22 11/27/22 release Previous Rx's Medication Instructions Recorded carvedilol 3.125 mg tablet 3.125 mg PO BID #60 tabs 12/08/22 Results & Data (ED) Vital Signs Vital Signs - 24 hr 12/02/23 16:10 12/02/23 16:14 12/02/23 17:00 Temperature 36.7 C Temperature Source Oral Pulse Rate 69 72 Pulse Rate [Apical] 81 Respiratory Rate 14 20 Respiratory Effort / Characteristics Non-Labored Spontaneous Non-Labored Spontaneous Respiratory Depth Respiratory Pattern Regular Regular Blood Pressure 146/89 H Blood Pressure [Right Arm] 145/85 H Blood Pressure Mean 108 Blood Pressure Mean [Right Arm] 105 Blood Pressure Position Semi-fowlers Blood Pressure Position [Right Arm] Semi-fowlers Pulse Oximetry 94 92 Oxygen Delivery Method Room Air Room Air Oxygen Flow Rate Sepsis Recent Fever Within 48 Hours Yes Sepsis New/Unexplained Change in Mental Status No Sepsis Action Taken by Nursing No Action Required 12/02/23 17:22 12/02/23 17:22 02/02/24 19:19 Temperature Temperature Source Pulse Rate 82 Pulse Rate [Apical] 70 Respiratory Rate 14 24 Respiratory Effort / Characteristics Non-Labored Spontaneous Respiratory Depth Normal Respiratory Pattern Blood Pressure Blood Pressure [Right Arm] 146/83 H Blood Pressure Mean Blood Pressure Mean [Right Arm] 104 Blood Pressure Position Blood Pressure Position [Right Arm] Semi-fowlers Pulse Oximetry 92 92 97 Oxygen Delivery Method Room Air Room Air Nasal Cannula Oxygen Flow Rate 2 Sepsis Recent Fever Within 48 Hours Sepsis New/Unexplained Change in Mental Status Sepsis Action Taken by Intermediate Medications Current Medication List: was personally reviewed by me Laboratory Data Attestation: I reviewed the patient's lab results. 12/02/23 16:03 12/02/23 16:03 Lab Results 12/02/23 12/02/23 Range/Units 16:03 16:39 WBC 7.69 (4.8-10.8) K/ul RBC 4.43 L (4.70-6.10) M/uL Hgb 13.8 L (14.0-18.0) g/dl Hct 41.5 L (42.0-52.0) % MCV 93.7 (80.0-100.0) fL MCH 31.2 (25.0-34.0) pg MCHC 33.3 (32.0-36.0) g/dL RDW Std Deviation 50.9 H (36.4-46.3) fL RDW Coeff of Chivo 14.6 H (11.5-14.5) % Plt Count 134 (130-400) K/uL MPV 11.9 (9.4-12.4) fL Immature Gran % (Auto) 0.3 % Neut % (Auto) 86.0 % Lymph % (Auto) 4.3 % Freestone % (Auto) 9.0 % Eos % (Auto) 0.1 % Baso % (Auto) 0.3 % Neut # (Auto) 6.62 H (1.40-6.50) K/uL Lymph # (Auto) 0.33 L (1.20-3.40) K/uL Freestone # (Auto) 0.69 H (0.11-0.59) K/uL Eos # (Auto) 0.01 (0.00-0.50) K/uL Baso # (Auto) 0.02 (0.00-0.20) K/uL Immature Gran # (Auto) 0.02 (0.01-0.20) K/uL PT 11.9 (9.0-12.0) Seconds INR 1.1 (0.9-1.1) APTT 24 (21-31) Seconds PTT Ratio 0.9 D-Dimer 2360 H* (0-500) ug/L FEU Sodium 138 (136-145) mmol/L Potassium 3.7 (3.5-5.1) mmol/L Chloride 103 (98-107) mmol/L Carbon Dioxide 29 (21-32) mmol/L Anion Gap 6 (3-11) BUN 20 (6-23) mg/dl Creatinine 1.17 (0.6-1.4) mg/dl Est Cr Clr Drug Dosing 70.8 ml/min Est GFR ( Amer) 80.9 ml/min Est GFR (Non-Af Amer) 69.8 ml/min BUN/Creatinine Ratio 17.1 (10-20) Glucose 138 H (70-99(Fasting)) mg/dl Calcium 9.6 (8.6-10.3) mg/dl Total Bilirubin 1.1 H (0.2-1.0) mg/dl AST 78 H (13-39) U/L ALT 80 H (7-52) U/L Alkaline Phosphatase 171 H (34-104) U/L Troponin I High Sens 18.6 (0-20) pg/ml Total Protein 5.9 L (6.0-8.3) gm/dl Albumin 4.0 (3.4-5.0) gm/dl Globulin 1.9 L (2.5-4.0) gm/dl Albumin/Globulin Ratio 2.1 H (0.9-2) Lipase 18 (11-82) U/L SARS-CoV-2 (PCR) NEGATIVE (Negative) Influenza Type A (PCR) Negative (Neg) Influenza Type B (PCR) Negative (Neg) RSV (RT-PCR) Negative (Neg) Administered Medications Discontinued Medications Piperacillin Sod/Tazobactam Sod (Zosyn) 4.5 gm in 100 mls @ 200 mls/hr IV NOW ONE Stop: 12/02/23 19:33 Last Infusion: 12/02/23 19:45 Dose: Infused Documented By: Admin: 12/02/23 19:15 Dose: 200 mls/hr Documented By: Ioversol (Optiray 320 125ml) 111 ml IV ONCE ONE Stop: 12/02/23 18:07 Last Admin: 12/02/23 18:08 Dose: 111 ml Documented By: SHAUN Morphine Sulfate (Morphine Sulfate 4 Mg/Ml 1 Ml Carp\Vial) 4 mg IV NOW STA Stop: 12/02/23 16:26 Last Admin: 12/02/23 16:44 Dose: 4 mg Documented By: Ondansetron HCl (Ondansetron Inj 2 Mg/Ml 2 Ml Vial) 4 mg IV NOW STA Stop: 12/02/23 16:26 Last Admin: 12/02/23 16:44 Dose: 4 mg Documented By: Imaging Data Attestation: I personally reviewed and interpreted this imaging study as follows: My Impression: 1 view chest x-ray was obtained in the emergency department. My interpretation is no free air or definite infiltrate, final report below. CT of the chest was obtained in the emergency department. My interpretation is no free air or definite infiltrate, final report below. CT abdomen and pelvis was obtained in the emergency department. My interpretation was no signs of bowel obstruction, there was dilation of the biliary ducts, final report below. Radiologist's Impression: Chest X-Ray 12/02/23 16:23 SINGLE VIEW CHEST CLINICAL HISTORY: Atypical chest pain. FINDINGS: An AP, portable, upright chest radiograph is compared to study dated 11/27/2022. The examination is degraded by portable technique and apical lordotic positioning. The heart is enlarged. The pulmonary vasculature is noncongested. Chronic interstitial thickening is similar to previous. There is mild bibasilar scarring/atelectasis. No airspace consolidation or large pleural effusion is identified. No pneumothorax is seen. The bony thorax is grossly intact. IMPRESSION: Cardiomegaly with no acute cardiopulmonary abnormality identified. ACT 112: Negative or not required by law. Electronically signed by: Al Greenberg M.D. 12/02/2023 5:13 PM Abdomen/Pelvis CT 12/02/23 16:25 Exam(s): CT ABDOMEN + PELVIS With Contrast IV Amt: OPTIRAY 320 111ML EXAM: CT Abdomen and Pelvis With Intravenous Contrast CLINICAL HISTORY: Reason for exam: sent by retirement for sever abd pain. TECHNIQUE: Axial computed tomography images of the abdomen and pelvis with intravenous contrast. CTDI is 17.55 mGy and DLP is 820.99 mGy-cm. Automated exposure control was utilized for the study. A dose lowering technique was utilized adhering to the principles of ALARA. CONTRAST: Patient received OPTIRAY 320 111ML of IV contrast COMPARISON: CT abdomen and pelvis 11/27/22 FINDINGS: Lung bases are clear. Gallbladder is surgically absent. Marked intrahepatic and extrahepatic bile duct dilatation is developed since prior exam. Common bile duct now measures 2 cm in diameter. There is an 18 mm filling defect in the mid common bile duct which may represent a noncalcified stone or sludge ball. Liver, spleen, pancreas, and left adrenal gland are unremarkable. There is a stable benign right adrenal adenoma. Kidneys are unremarkable. Aorta is normal in caliber. Incidentally noted is a retroaortic left renal vein There is no adenopathy. There is no free fluid or free air. Prostate is enlarged. Urinary bladder is normal. Appendix is normal. There is no mechanical bowel obstruction. There is no mucosal thickening to suggest bowel inflammation. Increased colonic stool retention suggest constipation. There is diverticulosis of the distal colon without evidence of acute diverticulitis. There is no evidence of acute fracture or dislocation. There are degenerative changes of the spine. Pars defects are present at L5 with spondylolisthesis measuring 13 mm. IMPRESSION: Marked biliary dilatation, new from prior exam, with 1.8 cm filling defect in the common bile duct concerning for noncalcified choledocholithiasis versus sludge ball. Common bile duct measures 2 cm in diameter. Electronically signed by: Be Mock M.D. 12/02/23 18:46 PM Chest CTA 12/02/23 16:25 Exam(s): CTA CHEST IV Amt: OPTIRAY 320 111ML EXAM: CT Angiography Chest With Intravenous Contrast CLINICAL HISTORY: Reason for exam: sent by retirement for . TECHNIQUE: Axial computed tomographic angiography images of the chest with intravenous contrast. CTDI is 20.68 mGy and DLP is 683.23 mGy-cm. Automated exposure control was utilized for the study. A dose lowering technique was utilized adhering to the principles of ALARA. MIP reconstructed images were created and reviewed. COMPARISON: No relevant prior studies available. FINDINGS: Pulmonary arteries: Adequate pulmonary artery opacification. Normal caliber main pulmonary artery. No pulmonary embolism. Aorta: No acute findings. No thoracic aortic aneurysm or dissection. Lungs: Unremarkable. No airspace consolidation. No pulmonary mass. Pleural space: Unremarkable. No significant effusion. No pneumothorax. Heart: No cardiomegaly. No pericardial effusion. Elevated RV/LV ratio is noted. Bones/joints: No acute fracture. No dislocation. Soft tissues: Unremarkable. Lymph nodes: Unremarkable. No adenopathy. IMPRESSION: 1. No evidence of acute pulmonary embolism. 2. Elevated RV/LV ratio may reflect right ventricular dysfunction. Electronically signed by: Be Mock M.D. 12/02/23 18:41 PM Discharge Plan Visit Data Chief Complaint: Chest Pain Stated Complaint: CHEST PAIN ED Provider: Rosalio Romero Discharge Problem: Choledocholithiasis, Chest pain, Abdominal pain, epigastric Patient Disposition: Being Evaluated by Hospitalist Forms Stand Alone Forms: [facility] Prescriptions Prescriptions: No Action carvedilol 12.5 mg Tablet 12.5 mg PO BID Rx Instructions: must administer with a meal/food omeprazole 40 mg Capsule,Delayed Release(Dr/Ec) 40 mg PO DAILY Crestor 5 mg PO DAILY carvedilol 3.125 mg Tablet 3.125 mg PO BID Qty: 60 0RF Referrals Referrals: Ashwin HERNANDEZ [Primary Care Provider] - Discharge Problem: Chest pain Qualifiers: Chest pain type: unspecified Qualified Code(s): R07.9 - Chest pain, unspecified
[2023-12-02 16:45] LABS: Basophils # (auto) 0.02 K/uL (0.00-0.20); Basophils % (auto) 0.3 %; Eosinophils # (auto) 0.01 K/uL (0.00-0.50); Eosinophils % (auto) 0.1 %; Hematocrit (blood only) 41.5 % (42.0-52.0); Hemoglobin 13.8 g/dl (14.0-18.0); Immature Granulocytes # (auto) 0.02 K/uL (0.01-0.20); Immature Granulocytes % (auto) 0.3 %; Lymphocytes # (auto) 0.33 K/uL (1.20-3.40); Lymphocytes % (auto) 4.3 %; Mean Corpuscular Hemoglobin 31.2 pg (25.0-34.0); Mean Corpuscular Hgb Conc 33.3 g/dL (32.0-36.0); Mean Corpuscular Volume 93.7 fL (80.0-100.0); Mean Platelet Volume 11.9 fL (9.4-12.4); Monocytes # (auto) 0.69 K/uL (0.11-0.59); Neutrophils # (auto) 6.62 K/uL (1.40-6.50); Platelet Count 134 K/uL (130-400); RDW Coefficient of Variation 14.6 % (11.5-14.5); RDW Standard Deviation 50.9 fL (36.4-46.3); Red Blood Count 4.43 M/uL (4.70-6.10); White Blood Count 7.69 K/ul (4.8-10.8)
[2023-12-02 16:58] LABS: Albumin Globulin Ratio 2.1 (0.9-2); BUN Creatinine Ratio 17.1 (10-20); Bilirubin,Total 1.1 mg/dl (0.2-1.0); Calcium 9.6 mg/dl (8.6-10.3); Creatinine Clr Calc Pharmacy 70.8 ml/min; Est GFR (African American) 80.9 ml/min; Est GFR (Non-African American) 69.8 ml/min; Globulin 1.9 gm/dl (2.5-4.0); Potassium 3.7 mmol/L (3.5-5.1); Total Protein 5.9 gm/dl (6.0-8.3)
[2023-12-02 17:04] LABS: Troponin I High Sensitivity 18.6 pg/ml (0-20)
--- NOTE | 2023-12-02 17:15 | XRay Report ---
SINGLE VIEW CHEST CLINICAL HISTORY: Atypical chest pain. FINDINGS: An AP, portable, upright chest radiograph is compared to study dated 11/27/2022. The examina tion is degraded by portable technique and apical lordotic positioning. The heart is enlarged. The pu lmonary vasculature is noncongested. Chronic interstitial thickening is similar to previous. There is mild bibasilar scarring/atelectasis. No airspace consolidation or large pleural effusion is identifi ed. No pneumothorax is seen. The bony thorax is grossly intact. IMPRESSION: Cardiomegaly with no acute cardiopulmonary abnormality identified. ACT 112: Negative or not required by law. Electronically signed by: Al Greenberg M.D. 12/02/2023 5:13 PM
[2023-12-02 17:22] LABS: INR 1.1 (0.9-1.1); Partial Thromboplastin Ratio 0.9; Partial Thromboplastin Time 24 Seconds (21-31); Prothrombin Time 11.9 Seconds (9.0-12.0)
[2023-12-02 17:23] LABS: Influenza A virus by PCR Negative (Neg); Influenza B virus by PCR Negative (Neg); RSV by PCR Negative (Neg); SARS CoV2 RNA(COVID-19) Ceph NEGATIVE (Negative)
[2023-12-02 17:24] LABS: D Dimer 2360 ug/L FEU (0-500)
[2023-12-02] MEDS ORDERED: OPTIRAY 320 125ml IV ONE (18:06)
--- NOTE | 2023-12-02 18:42 | CT Scan Report ---
Exam(s): CTA CHEST IV Amt: OPTIRAY 320 111ML EXAM: CT Angiography Chest With Intravenous Contrast CLINICAL HISTORY: Reason for exam: sent by [facility] for CP. TECHNIQUE: Axial computed tomographic angiography images of the chest with intravenous contrast. CTDI is 20.68 mGy and DLP is 683.23 mGy-cm. Automated exposure control was utilized for the study. A dose lowering technique was utilized adhering to the principles of ALARA. MIP reconstructed images were created and reviewed. COMPARISON: No relevant prior studies available. FINDINGS: Pulmonary arteries: Adequate pulmonary artery opacification. Normal caliber main pulmonary artery. No pulmonary embolism. Aorta: No acute findings. No thoracic aortic aneurysm or dissection. Lungs: Unremarkable. No airspace consolidation. No pulmonary mass. Pleural space: Unremarkable. No significant effusion. No pneumothorax. Heart: No cardiomegaly. No pericardial effusion. Elevated RV/LV ratio is noted. Bones/joints: No acute fracture. No dislocation. Soft tissues: Unremarkable. Lymph nodes: Unremarkable. No adenopathy. IMPRESSION: 1. No evidence of acute pulmonary embolism. 2. Elevated RV/LV ratio may reflect right ventricular dysfunction. Electronically signed by: Be Mock M.D. 12/02/23 18:41 PM
--- NOTE | 2023-12-02 18:47 | CT Scan Report ---
Exam(s): CT ABDOMEN + PELVIS With Contrast IV Amt: OPTIRAY 320 111ML EXAM: CT Abdomen and Pelvis With Intravenous Contrast CLINICAL HISTORY: Reason for exam: [facility] by [facility] for sever abd pain. TECHNIQUE: Axial computed tomography images of the abdomen and pelvis with intravenous contrast. CTDI is 17.55 mGy and DLP is 820.99 mGy-cm. Automated exposure control was utilized for the study. A dose lowering technique was utilized adhering to the principles of ALARA. CONTRAST: Patient received OPTIRAY 320 111ML of IV contrast COMPARISON: CT abdomen and pelvis 11/27/22 FINDINGS: Lung bases are clear. Gallbladder is surgically absent. Marked intrahepatic and extrahepatic bile duct dilatation is developed since prior exam. Common bile duct now measures 2 cm in diameter. There is an 18 mm filling defect in the mid common bile duct which may represent a noncalcified stone or sludge ball. Liver, spleen, pancreas, and left adrenal gland are unremarkable. There is a stable benign right adrenal adenoma. Kidneys are unremarkable. Aorta is normal in caliber. Incidentally noted is a retroaortic left renal vein There is no adenopathy. There is no free fluid or free air. Prostate is enlarged. Urinary bladder is normal. Appendix is normal. There is no mechanical bowel obstruction. There is no mucosal thickening to suggest bowel inflammation. Increased colonic stool retention suggest constipation. There is diverticulosis of the distal colon without evidence of acute diverticulitis. There is no evidence of acute fracture or dislocation. There are degenerative changes of the spine. Pars defects are present at L5 with spondylolisthesis measuring 13 mm. IMPRESSION: Marked biliary dilatation, new from prior exam, with 1.8 cm filling defect in the common bile duct concerning for noncalcified choledocholithiasis versus sludge ball. Common bile duct measures 2 cm in diameter. Electronically signed by: Be Mock M.D. 12/02/23 18:46 PM
[2023-12-02] MEDS ORDERED: PIPERACILLIN/TAZOBACTAM 4.5 GM/100 ML BAG IV ONE (19:04)
--- NOTE | 2023-12-02 19:48 | History & Physical Report ---
Date of Service December 02, 2023 Assessment & Plan (1) Abdominal pain, epigastric: Plan: 57yo male presenting with several weeks of persistent upper abdominal/epigastric discomfort. Labs are significant for abnormal LFTs in mixed pattern with AST=78, ALT=80, HG=357 and Tbili=1.[address] of the abdomen as above with marked biliary dilatation with 1.8cm filling defect in the common bile duct concerning for non-calcified choledocholithiasis vs sludge ball. CBD measures 2cm in diameter. He has a normal WBC count at this time. No fever or tachycardia. He does endorse some chills earlier today but otherwise no suspicion for cholangitis at this time. -Admit to PCU -Maintain NPO -IVF - LR at 125mL/hr x 2 liters -Continue Zosyn 4.5gm IV q 8 hours -Morphine PRN pain -Zofran PRN nausea -Repeat labs in the AM - CBC, BMP, LFTs -Check acute hepatitis panel and Acetaminophen level -GI consultation appreciated. Of note, may need transfer if patient decompensates and needs urgent ERCP (2) HTN (hypertension): Plan: Chronic. Blood pressure mildly elevated at 146/95 -Continue Carvedilol 12.5mg po BID -Continue Lisinopril 40mg po daily -Monitor (3) Hyperlipidemia: Plan: Chronic. Stable -Continue Crestor (4) GERD (gastroesophageal reflux disease): Plan: Chronic. Stable -Protonix 40mg IV daily F/E/N - LR at 125mL/hr x 2L, electrolytes WNL, repeat BMP in AM, NPO for now Ppx - Low risk for DVT - SCDs to bilateral LE Code - Full per discussion with patient at time of admission Dispo - Admit to PCU History of Present Illness Chief Complaint: abdominal pain Primary Care Provider: [facility] Eladio Palomino is a 57yo male with history of HTN, HLP and GERD presenting from [facility] with abdominal pain as well as intermittent chest pain. Patient reports that over the last few weeks he has been experiencing fairly constant abdominal pain. Pain is in upper abdomen, sharp and stabbing in nature. It does not seem to be related to meals. He had some chills this evening but otherwise denies nausea, vomiting, diarrhea. No additional complaints at this time. In the ER he is afebrile, HD stable, NAD ER Course: Morphine 4mg Zofran 4mg IV Zosyn 4.5gm IV LR at 125mL/hr Allergies Allergy/AdvReac Type Severity Reaction Status Date / Time No Known Allergies Allergy Unverified 12/02/23 20:10 Home Medications Medication Instructions Recorded Confirmed Type carvedilol 12.5 mg tablet 12.5 mg PO BID 11/27/22 12/02/23 History omeprazole 40 mg capsule,delayed 40 mg PO DAILY 11/27/22 12/02/23 History release carbamazepine 100 mg chewable 100 mg PO BID 12/02/23 12/02/23 History tablet lisinopril 40 mg tablet 40 mg PO DAILY 12/02/23 12/02/23 History potassium chloride 20 mEq 20 meq PO BID 12/02/23 12/02/23 History tablet,extended release(part/cryst) rosuvastatin 5 mg tablet 5 mg PO QPM 12/02/23 12/02/23 History Past Med/Surg History Medical History Incisional hernia GERD (gastroesophageal reflux disease) Hyperlipidemia HTN (hypertension) SBO (small bowel obstruction) Surgical History History of cholecystectomy Social History Smoking Status: Never smoker Second Hand Exposure: No; Do You Dip or Chew Tobacco: No; Hx Alcohol Use: No Hx Substance Use: No Preferred Language: Setswana Communication Ability: Effective Occupational Health Rn Required: No Beliefs That Will Affect Care: None Current Living Situation: Other Current Living Situation Comment: [facility] Feels Safe at Home: Yes Assistive Devices: None Review of Systems Review of Systems: All systems reviewed & are unremarkable except as noted in HPI & below Physical Exam Physical Exam: General: patient resting comfortably, NAD, non-toxic in appearance, AA&O x 4 Skin: warm, dry, intact, no rashes or lesions HEENT: NC/AT, PERRL, EOMI, anicteric sclera, conjunctiva without injection, external ear normal to inspection and nontender, nares patent, moist mucus membranes, dentition intact, no oropharyngeal lesions, neck supple, trachea midline, no LAD, no thyromegaly, no JVD Heart: +S1/S2, regular, no m/r/g Lungs: equal air entry bilaterally, no rales/rhonchi/wheezes Abd: +BS, soft, tender in the mid abdomen and RUQ without guarding or peritonitis Ext: warm, 2+ pulses in UE/LE bilaterally, no clubbing/cyanosis or edema Neuro: nonfocal, patient AA&O x 4, speech intact, no facial droop, moving all extremities on command with equal strength 5/5 Results & Data Results & Data Vital Signs (Past 12 Hours) Vital Signs Temp Pulse Pulse Resp BP BP Pulse Ox 12/02/23 19:19 70 24 146/83 H 97 12/02/23 17:22 82 14 92 12/02/23 17:22 92 12/02/23 17:00 81 20 145/85 H 92 12/02/23 16:14 72 12/02/23 16:10 36.7 C 69 14 146/89 H 94 O2 Del Method O2 Flow Rate 12/02/23 19:19 Nasal Cannula 2 12/02/23 17:22 Room Air 12/02/23 17:22 Room Air 12/02/23 17:00 Room Air 12/02/23 16:14 12/02/23 16:10 Room Air Laboratory Results Laboratory Results WBC 7.69 K/ul (4.8-10.8) 12/02/23 16:03 RBC 4.43 M/uL (4.70-6.10) L 12/02/23 16:03 Hgb 13.8 g/dl (14.0-18.0) L 12/02/23 16:03 Hct 41.5 % (42.0-52.0) L 12/02/23 16:03 MCV 93.7 fL (80.0-100.0) 12/02/23 16:03 MCH 31.2 pg (25.0-34.0) 12/02/23 16:03 MCHC 33.3 g/dL (32.0-36.0) 12/02/23 16:03 RDW Std Deviation 50.9 fL (36.4-46.3) H 12/02/23 16:03 RDW Coeff of Chivo 14.6 % (11.5-14.5) H 12/02/23 16:03 Plt Count 134 K/uL (130-400) 12/02/23 16:03 MPV 11.9 fL (9.4-12.4) 12/02/23 16:03 Immature Gran % (Auto) 0.3 % 12/02/23 16:03 Neut % (Auto) 86.0 % 12/02/23 16:03 Lymph % (Auto) 4.3 % 12/02/23 16:03 Patrick % (Auto) 9.0 % 12/02/23 16:03 Eos % (Auto) 0.1 % 12/02/23 16:03 Baso % (Auto) 0.3 % 12/02/23 16:03 Neut # (Auto) 6.62 K/uL (1.40-6.50) H 12/02/23 16:03 Lymph # (Auto) 0.33 K/uL (1.20-3.40) L 12/02/23 16:03 Patrick # (Auto) 0.69 K/uL (0.11-0.59) H 12/02/23 16:03 Eos # (Auto) 0.01 K/uL (0.00-0.50) 12/02/23 16:03 Baso # (Auto) 0.02 K/uL (0.00-0.20) 12/02/23 16:03 Immature Gran # (Auto) 0.02 K/uL (0.01-0.20) 12/02/23 16:03 PT 11.9 Seconds (9.0-12.0) 12/02/23 16:03 INR 1.1 (0.9-1.1) 12/02/23 16:03 APTT 24 Seconds (21-31) 12/02/23 16:03 PTT Ratio 0.9 12/02/23 16:03 D-Dimer 2360 ug/L FEU (0-500) H* 12/02/23 16:03 Sodium 138 mmol/L (136-145) 12/02/23 16:03 Potassium 3.7 mmol/L (3.5-5.1) 12/02/23 16:03 Chloride 103 mmol/L (98-107) 12/02/23 16:03 Carbon Dioxide 29 mmol/L (21-32) 12/02/23 16:03 Anion Gap 6 (3-11) 12/02/23 16:03 BUN 20 mg/dl (6-23) 12/02/23 16:03 Creatinine 1.17 mg/dl (0.6-1.4) 12/02/23 16:03 Est Cr Clr Drug Dosing 70.8 ml/min 12/02/23 16:03 Est GFR ( Amer) 80.9 ml/min 12/02/23 16:03 Est GFR (Non-Af Amer) 69.8 ml/min 12/02/23 16:03 BUN/Creatinine Ratio 17.1 (10-20) 12/02/23 16:03 Glucose 138 mg/dl (70-99(Fasting)) H 12/02/23 16:03 Calcium 9.6 mg/dl (8.6-10.3) 12/02/23 16:03 Magnesium 1.6 mg/dl (1.7-2.4) L 12/02/23 16:03 Total Bilirubin 1.1 mg/dl (0.2-1.0) H 12/02/23 16:03 AST 78 U/L (13-39) H 12/02/23 16:03 ALT 80 U/L (7-52) H 12/02/23 16:03 Alkaline Phosphatase 171 U/L (34-104) H 12/02/23 16:03 Troponin I High Sens 18.6 pg/ml (0-20) 12/02/23 16:03 Total Protein 5.9 gm/dl (6.0-8.3) L 12/02/23 16:03 Albumin 4.0 gm/dl (3.4-5.0) 12/02/23 16:03 Globulin 1.9 gm/dl (2.5-4.0) L 12/02/23 16:03 Albumin/Globulin Ratio 2.1 (0.9-2) H 12/02/23 16:03 Lipase 18 U/L (11-82) 12/02/23 16:03 SARS-CoV-2 (PCR) NEGATIVE (Negative) 12/02/23 16:39 Influenza Type A (PCR) Negative (Neg) 12/02/23 16:39 Influenza Type B (PCR) Negative (Neg) 12/02/23 16:39 RSV (RT-PCR) Negative (Neg) 12/02/23 16:39 Impressions Chest X-Ray 12/02/23 16:23 SINGLE VIEW CHEST CLINICAL HISTORY: Atypical chest pain. FINDINGS: An AP, portable, upright chest radiograph is compared to study dated 11/27/2022. The examination is degraded by portable technique and apical lordotic positioning. The heart is enlarged. The pulmonary vasculature is noncongested. Chronic interstitial thickening is similar to previous. There is mild bibasilar scarring/atelectasis. No airspace consolidation or large pleural effusion is identified. No pneumothorax is seen. The bony thorax is grossly intact. IMPRESSION: Cardiomegaly with no acute cardiopulmonary abnormality identified. ACT 112: Negative or not required by law. Electronically signed by: Al Greenberg M.D. 12/02/2023 5:13 PM Abdomen/Pelvis CT 12/02/23 16:25 Exam(s): CT ABDOMEN + PELVIS With Contrast IV Amt: OPTIRAY 320 111ML EXAM: CT Abdomen and Pelvis With Intravenous Contrast CLINICAL HISTORY: Reason for exam: sent by alf for sever abd pain. TECHNIQUE: Axial computed tomography images of the abdomen and pelvis with intravenous contrast. CTDI is 17.55 mGy and DLP is 820.99 mGy-cm. Automated exposure control was utilized for the study. A dose lowering technique was utilized adhering to the principles of ALARA. CONTRAST: Patient received OPTIRAY 320 111ML of IV contrast COMPARISON: CT abdomen and pelvis 11/27/22 FINDINGS: Lung bases are clear. Gallbladder is surgically absent. Marked intrahepatic and extrahepatic bile duct dilatation is developed since prior exam. Common bile duct now measures 2 cm in diameter. There is an 18 mm filling defect in the mid common bile duct which may represent a noncalcified stone or sludge ball. Liver, spleen, pancreas, and left adrenal gland are unremarkable. There is a stable benign right adrenal adenoma. Kidneys are unremarkable. Aorta is normal in caliber. Incidentally noted is a retroaortic left renal vein There is no adenopathy. There is no free fluid or free air. Prostate is enlarged. Urinary bladder is normal. Appendix is normal. There is no mechanical bowel obstruction. There is no mucosal thickening to suggest bowel inflammation. Increased colonic stool retention suggest constipation. There is diverticulosis of the distal colon without evidence of acute diverticulitis. There is no evidence of acute fracture or dislocation. There are degenerative changes of the spine. Pars defects are present at L5 with spondylolisthesis measuring 13 mm. IMPRESSION: Marked biliary dilatation, new from prior exam, with 1.8 cm filling defect in the common bile duct concerning for noncalcified choledocholithiasis versus sludge ball. Common bile duct measures 2 cm in diameter. Electronically signed by: Be Mock M.D. 12/02/23 18:46 PM Chest CTA 12/02/23 16:25 Exam(s): CTA CHEST IV Amt: OPTIRAY 320 111ML EXAM: CT Angiography Chest With Intravenous Contrast CLINICAL HISTORY: Reason for exam: sent by alf for CP. TECHNIQUE: Axial computed tomographic angiography images of the chest with intravenous contrast. CTDI is 20.68 mGy and DLP is 683.23 mGy-cm. Automated exposure control was utilized for the study. A dose lowering technique was utilized adhering to the principles of ALARA. MIP reconstructed images were created and reviewed. COMPARISON: No relevant prior studies available. FINDINGS: Pulmonary arteries: Adequate pulmonary artery opacification. Normal caliber main pulmonary artery. No pulmonary embolism. Aorta: No acute findings. No thoracic aortic aneurysm or dissection. Lungs: Unremarkable. No airspace consolidation. No pulmonary mass. Pleural space: Unremarkable. No significant effusion. No pneumothorax. Heart: No cardiomegaly. No pericardial effusion. Elevated RV/LV ratio is noted. Bones/joints: No acute fracture. No dislocation. Soft tissues: Unremarkable. Lymph nodes: Unremarkable. No adenopathy. IMPRESSION: 1. No evidence of acute pulmonary embolism. 2. Elevated RV/LV ratio may reflect right ventricular dysfunction. Electronically signed by: Be Mock M.D. 12/02/23 18:41 PM ECG Additional Comments: EKG - per my interpretation - study shows NSR at 76bpm with 1st degree AV block - LD=037, UZM=463, HUr=487. LVH. No acute ischemic changes Code Status & VTE Plan VTE Prophylaxis Plan VTE Prophylaxis will be ordered: Yes PG Care Time/CCT Total # of Minutes Spent Total Time Spent with Patient: Total time spent is greater than 50% in coordination of care (as documented) at patient's floor/unit and/or counseling patient: Coding Level of Care Code 45241 INT INP/OBS CARE 2/55MIN Diagnoses Abdominal pain, epigastric R10.13 HTN (hypertension) I10 Hyperlipidemia E78.5 GERD (gastroesophageal reflux disease) K21.9
[2023-12-02] MEDS ORDERED: MoRPHine SULFATE 4 MG/ML 1 ML CARP\\VIAL IV PRN (21:33)
[2023-12-02] MEDS ORDERED: DOCUSATE SODIUM 100 MG CAP PO PRN (21:33)
[2023-12-02] MEDS ORDERED: ONDANSETRON INJ 2 MG/ML 2 ML VIAL IV PRN (21:33)
[2023-12-02] MEDS ORDERED: MoRPHine SULFATE 2 MG/ML CARP IV PRN (21:33)
[2023-12-02 21:52] LABS: Magnesium 1.6 mg/dl (1.7-2.4)
[2023-12-02] MEDS: LACTATED RINGER'S 1,000 ML IV SCH (22:04)
[2023-12-03] MEDS ORDERED: carvediloL 12.5 MG TAB PO ONE (00:36)
[2023-12-03] MEDS ORDERED: ACETAMINOPHEN 500 MG TAB PO STA (01:23)
[2023-12-03] MEDS: PIPERACILLIN/TAZOBACTAM 4.5 GM in DEXTROSE 5% MINI-B 100 ML IV SCH ×3 (01:40→16:18)
[2023-12-03] MEDS: MAGNESIUM SULFATE / D5W 1 GM/100 ML BAG IV SCH ×3 (02:44→07:37)
[2023-12-03 05:06] LABS: Hematocrit (blood only) 40.8 % (42.0-52.0); Hemoglobin 13.4 g/dl (14.0-18.0); Mean Corpuscular Hgb Conc 32.8 g/dL (32.0-36.0); Mean Corpuscular Volume 94.4 fL (80.0-100.0); Mean Platelet Volume 11.7 fL (9.4-12.4); Platelet Count 128 K/uL (130-400); RDW Coefficient of Variation 15.3 % (11.5-14.5); RDW Standard Deviation 53.1 fL (36.4-46.3); Red Blood Count 4.32 M/uL (4.70-6.10)
[2023-12-03 05:26] LABS: Albumin Level 3.5 gm/dl (3.4-5.0); BUN Creatinine Ratio 14.6 (10-20); Bilirubin Direct 3.5 mg/dl (0-0.2); Bilirubin,Total 4.5 mg/dl (0.2-1.0); Calcium 8.9 mg/dl (8.6-10.3); Creatinine Clr Calc Pharmacy 52.5 ml/min; Est GFR (African American) 56.7 ml/min; Est GFR (Non-African American) 48.9 ml/min; Potassium 3.2 mmol/L (3.5-5.1); Total Protein 5.5 gm/dl (6.0-8.3)
--- NOTE | 2023-12-03 08:17 | Magnetic Resonance Report ---
MR MRCP HISTORY: 57 years-old Male choledocholithiasis acute generalized abdominal pain with possible choled ocholithiasis COMPARISON: CT abdomen and pelvis December 02, 2023 TECHNIQUE: MRCP was obtained without the use of IV contrast. FINDINGS: [employer] Operator localizer images demonstrate no gross extraspinal abnormality. Grade 1 anterolisthesis L5 on S1 with severe intervertebral disc space narrowing. Mild cardiomegaly. Trace pleural effusions. 1.9 cm right adrenal gland nodule redemonstrated. Mild nonspecific bilateral perinephric stranding. No abdom inal aortic aneurysm. Retroaortic left renal vein. No bowel obstruction or bowel wall thickening. 7 mm right hepatic lobe cyst. The study is degraded by respiratory motion artifact. Sigmoidal thoraco lumbar scoliosis. Intrahepatic and extrahepatic biliary ductal dilation. The common bile duct measure s up to 1.6 cm. Choledocholithiasis with several stones present within the distal common bile duct me asuring up to 11 mm. Cholecystectomy. No pancreatic ductal dilation or pancreatic divisum. IMPRESSION: 1. Intrahepatic and extrahepatic biliary ductal dilation with choledocholithiasis. 2. Cholecystectomy. ACT 112: Negative or not required by law. The above report was generated using voice recognition software. It may contain grammatical, syntax o r spelling errors. Electronically signed by: Stalin Logan M.D. 12/03/2023 8:15 AM
[2023-12-03] MEDS ORDERED: lisinopril 40 MG TAB PO SCH (09:00)
[2023-12-03] MEDS ORDERED: carBAMazepine 100 MG CHEW TAB PO SCH (09:00)
[2023-12-03] MEDS ORDERED: carvediloL 12.5 MG TAB PO SCH (09:00)
--- NOTE | 2023-12-03 10:39 | Gastrointestinal Consultation ---
Date of Consultation December 03, 2023 Assessment & Plan (1) Choledocholithiasis: 57 year old inmate with choledocholithiasis but no overt evidence of cholangitis. Will plan for [facility] to do ERCP on Tuesday. If clinically deteriorates will need to go to [place] or [place] for emergent ERCP History of Present Illness Reason for Consultation: choledocholithiasis Attending Physician: Conrado Caldwell MD History of Present Illness 57 year old inmate admitted with abdominal pain, elevated LFT's and choledocholithiasis on CT and MRCP. He needs ERCP. No fever or chills, normal WBC. Allergies Allergy/AdvReac Type Severity Reaction Status Date / Time No Known Allergies Allergy Unverified 12/02/23 20:10 Home Medications Medication Instructions Recorded Confirmed Type carvedilol 12.5 mg tablet 12.5 mg PO BID 11/27/22 12/02/23 History omeprazole 40 mg capsule,delayed 40 mg PO DAILY 11/27/22 12/02/23 History release carbamazepine 100 mg chewable 100 mg PO BID 12/02/23 12/02/23 History tablet lisinopril 40 mg tablet 40 mg PO DAILY 12/02/23 12/02/23 History potassium chloride 20 mEq 20 meq PO BID 12/02/23 12/02/23 History tablet,extended release(part/cryst) rosuvastatin 5 mg tablet 5 mg PO QPM 12/02/23 12/02/23 History Patient History Medical History Incisional hernia GERD (gastroesophageal reflux disease) Hyperlipidemia HTN (hypertension) SBO (small bowel obstruction) Surgical History History of cholecystectomy Social History Smoking Status: Never smoker Second Hand Exposure: No; Do You Dip or Chew Tobacco: No; Hx Alcohol Use: No Hx Substance Use: No (does not admit to use) Preferred Language: Georgian Communication Ability: Effective Audit Practice Intern Required: No Beliefs That Will Affect Care: None Current Living Situation: Other Current Living Situation Comment: [facility] Other Information That Helps Us Care for You: No Feels Safe at Home: Yes Safety Concerns: Feels Safe At This Time Assistive Devices: None Review of Systems Review of Systems: All systems reviewed & are unremarkable except as noted in HPI & below Physical Exam Constitutional: WD/WN, vitals as above Respiratory: normal respiratory effort, lungs clear to auscultation Cardiovascular: RRR, no murmur, no edema Gastrointestinal (Abdomen): normal bowel sounds, soft, nontender, no hepatosplenomegaly Results & Data Vital Signs (Past 12 Hours) Vital Signs Pulse Pulse Resp BP Pulse Ox O2 Del Method O2 Flow Rate 12/03/23 07:08 56 L 12/03/23 02:51 80 13 120/53 L 93 Nasal Cannula 2 12/03/23 01:57 84 24 100/64 93 Nasal Cannula 2 12/02/23 23:22 76 Laboratory Results Laboratory Results WBC 10.60 K/ul (4.8-10.8) 12/03/23 04:45 RBC 4.32 M/uL (4.70-6.10) L 12/03/23 04:45 Hgb 13.4 g/dl (14.0-18.0) L 12/03/23 04:45 Hct 40.8 % (42.0-52.0) L 12/03/23 04:45 MCV 94.4 fL (80.0-100.0) 12/03/23 04:45 MCH 31.0 pg (25.0-34.0) 12/03/23 04:45 MCHC 32.8 g/dL (32.0-36.0) 12/03/23 04:45 RDW Std Deviation 53.1 fL (36.4-46.3) H 12/03/23 04:45 RDW Coeff of Chivo 15.3 % (11.5-14.5) H 12/03/23 04:45 Plt Count 128 K/uL (130-400) L 12/03/23 04:45 MPV 11.7 fL (9.4-12.4) 12/03/23 04:45 Immature Gran % (Auto) 0.3 % 12/02/23 16:03 Neut % (Auto) 86.0 % 12/02/23 16:03 Lymph % (Auto) 4.3 % 12/02/23 16:03 [place] % (Auto) 9.0 % 12/02/23 16:03 Eos % (Auto) 0.1 % 12/02/23 16:03 Baso % (Auto) 0.3 % 12/02/23 16:03 Neut # (Auto) 6.62 K/uL (1.40-6.50) H 12/02/23 16:03 Lymph # (Auto) 0.33 K/uL (1.20-3.40) L 12/02/23 16:03 [place] # (Auto) 0.69 K/uL (0.11-0.59) H 12/02/23 16:03 Eos # (Auto) 0.01 K/uL (0.00-0.50) 12/02/23 16:03 Baso # (Auto) 0.02 K/uL (0.00-0.20) 12/02/23 16:03 Immature Gran # (Auto) 0.02 K/uL (0.01-0.20) 12/02/23 16:03 PT 11.9 Seconds (9.0-12.0) 12/02/23 16:03 INR 1.1 (0.9-1.1) 12/02/23 16:03 APTT 24 Seconds (21-31) 12/02/23 16:03 PTT Ratio 0.9 12/02/23 16:03 D-Dimer 2360 ug/L FEU (0-500) H* 12/02/23 16:03 Sodium 138 mmol/L (136-145) 12/03/23 04:45 Potassium 3.2 mmol/L (3.5-5.1) L 12/03/23 04:45 Chloride 102 mmol/L (98-107) 12/03/23 04:45 Carbon Dioxide 27 mmol/L (21-32) 12/03/23 04:45 Anion Gap 9 (3-11) 12/03/23 04:45 BUN 23 mg/dl (6-23) 12/03/23 04:45 Creatinine 1.57 mg/dl (0.6-1.4) H D 12/03/23 04:45 Est Cr Clr Drug Dosing 52.5 ml/min 12/03/23 04:45 Est GFR ( Amer) 56.7 ml/min 12/03/23 04:45 Est GFR (Non-Af Amer) 48.9 ml/min 12/03/23 04:45 BUN/Creatinine Ratio 14.6 (10-20) 12/03/23 04:45 Glucose 140 mg/dl (70-99(Fasting)) H 12/03/23 04:45 Calcium 8.9 mg/dl (8.6-10.3) 12/03/23 04:45 Magnesium 1.6 mg/dl (1.7-2.4) L 12/02/23 16:03 Total Bilirubin 4.5 mg/dl (0.2-1.0) H D 12/03/23 04:45 Direct Bilirubin 3.5 mg/dl (0-0.2) H 12/03/23 04:45 AST 189 U/L (13-39) H 12/03/23 04:45 ALT 161 U/L (7-52) H 12/03/23 04:45 Alkaline Phosphatase 215 U/L (34-104) H 12/03/23 04:45 Troponin I High Sens 18.6 pg/ml (0-20) 12/02/23 16:03 Total Protein 5.5 gm/dl (6.0-8.3) L 12/03/23 04:45 Albumin 3.5 gm/dl (3.4-5.0) 12/03/23 04:45 Globulin 1.9 gm/dl (2.5-4.0) L 12/02/23 16:03 Albumin/Globulin Ratio 2.1 (0.9-2) H 12/02/23 16:03 Lipase 18 U/L (11-82) 12/02/23 16:03 Acetaminophen 10 ug/ml (10-30) 12/03/23 04:45 SARS-CoV-2 (PCR) NEGATIVE (Negative) 12/02/23 16:39 Influenza Type A (PCR) Negative (Neg) 12/02/23 16:39 Influenza Type B (PCR) Negative (Neg) 12/02/23 16:39 RSV (RT-PCR) Negative (Neg) 12/02/23 16:39 Impressions Chest X-Ray 12/02/23 16:23 SINGLE VIEW CHEST CLINICAL HISTORY: Atypical chest pain. FINDINGS: An AP, portable, upright chest radiograph is compared to study dated 11/27/2022. The examination is degraded by portable technique and apical lordotic positioning. The heart is enlarged. The pulmonary vasculature is noncongested. Chronic interstitial thickening is similar to previous. There is mild bibasilar scarring/atelectasis. No airspace consolidation or large pleural effusion is identified. No pneumothorax is seen. The bony thorax is grossly intact. IMPRESSION: Cardiomegaly with no acute cardiopulmonary abnormality identified. ACT 112: Negative or not required by law. Electronically signed by: Al Greenberg M.D. 12/02/2023 5:13 PM Abdomen/Pelvis CT 12/02/23 16:25 Exam(s): CT ABDOMEN + PELVIS With Contrast IV Amt: OPTIRAY 320 111ML EXAM: CT Abdomen and Pelvis With Intravenous Contrast CLINICAL HISTORY: Reason for exam: sent by correction for sever abd pain. TECHNIQUE: Axial computed tomography images of the abdomen and pelvis with intravenous contrast. CTDI is 17.55 mGy and DLP is 820.99 mGy-cm. Automated exposure control was utilized for the study. A dose lowering technique was utilized adhering to the principles of ALARA. CONTRAST: Patient received OPTIRAY 320 111ML of IV contrast COMPARISON: CT abdomen and pelvis 11/27/22 FINDINGS: Lung bases are clear. Gallbladder is surgically absent. Marked intrahepatic and extrahepatic bile duct dilatation is developed since prior exam. Common bile duct now measures 2 cm in diameter. There is an 18 mm filling defect in the mid common bile duct which may represent a noncalcified stone or sludge ball. Liver, spleen, pancreas, and left adrenal gland are unremarkable. There is a stable benign right adrenal adenoma. Kidneys are unremarkable. Aorta is normal in caliber. Incidentally noted is a retroaortic left renal vein There is no adenopathy. There is no free fluid or free air. Prostate is enlarged. Urinary bladder is normal. Appendix is normal. There is no mechanical bowel obstruction. There is no mucosal thickening to suggest bowel inflammation. Increased colonic stool retention suggest constipation. There is diverticulosis of the distal colon without evidence of acute diverticulitis. There is no evidence of acute fracture or dislocation. There are degenerative changes of the spine. Pars defects are present at L5 with spondylolisthesis measuring 13 mm. IMPRESSION: Marked biliary dilatation, new from prior exam, with 1.8 cm filling defect in the common bile duct concerning for noncalcified choledocholithiasis versus sludge ball. Common bile duct measures 2 cm in diameter. Electronically signed by: Be Mock M.D. 12/02/23 18:46 PM Chest CTA 12/02/23 16:25 Exam(s): CTA CHEST IV Amt: OPTIRAY 320 111ML EXAM: CT Angiography Chest With Intravenous Contrast CLINICAL HISTORY: Reason for exam: sent by correction for CP. TECHNIQUE: Axial computed tomographic angiography images of the chest with intravenous contrast. CTDI is 20.68 mGy and DLP is 683.23 mGy-cm. Automated exposure control was utilized for the study. A dose lowering technique was utilized adhering to the principles of ALARA. MIP reconstructed images were created and reviewed. COMPARISON: No relevant prior studies available. FINDINGS: Pulmonary arteries: Adequate pulmonary artery opacification. Normal caliber main pulmonary artery. No pulmonary embolism. Aorta: No acute findings. No thoracic aortic aneurysm or dissection. Lungs: Unremarkable. No airspace consolidation. No pulmonary mass. Pleural space: Unremarkable. No significant effusion. No pneumothorax. Heart: No cardiomegaly. No pericardial effusion. Elevated RV/LV ratio is noted. Bones/joints: No acute fracture. No dislocation. Soft tissues: Unremarkable. Lymph nodes: Unremarkable. No adenopathy. IMPRESSION: 1. No evidence of acute pulmonary embolism. 2. Elevated RV/LV ratio may reflect right ventricular dysfunction. Electronically signed by: Be Mock M.D. 12/02/23 18:41 PM Cholangiopancreatography MRI 12/03/23 02:00 MR MRCP HISTORY: 57 years-old Male choledocholithiasis acute generalized abdominal pain with possible choledocholithiasis COMPARISON: CT abdomen and pelvis December 02, 2023 TECHNIQUE: MRCP was obtained without the use of IV contrast. FINDINGS: Marketing Forecaster localizer images demonstrate no gross extraspinal abnormality. Grade 1 anterolisthesis L5 on S1 with severe intervertebral disc space narrowing. Mild cardiomegaly. Trace pleural effusions. 1.9 cm right adrenal gland nodule redemonstrated. Mild nonspecific bilateral perinephric stranding. No abdominal aortic aneurysm. Retroaortic left renal vein. No bowel obstruction or bowel wall thickening. 7 mm right hepatic lobe cyst. The study is degraded by respiratory motion artifact. Sigmoidal thoracolumbar scoliosis. Intrahepatic and extrahepatic b iliary ductal dilation. The common bile duct measures up to 1.6 cm. Choledocholithiasis with several stones present within the distal common bile duct measuring up to 11 mm. Cholecystectomy. No pancreatic ductal dilation or pancreatic divisum. IMPRESSION: 1. Intrahepatic and extrahepatic biliary ductal dilation with choledocholithiasis. 2. Cholecystectomy. ACT 112: Negative or not required by law. The above report was generated using voice recognition software. It may contain grammatical, syntax or spelling errors. Electronically signed by: Stalin Logan M.D. 12/03/2023 8:15 AM
[2023-12-03] MEDS ORDERED: PANTOprazole 40 MG in SYRINGE 0 ML IV SCH (11:00)
[2023-12-03] MEDS: LACTATED RINGER'S 1,000 ML IV SCH (12:35)
--- NOTE | 2023-12-03 16:46 | Discharge Summary ---
Date of Service December 03, 2023 Admission HPI Per Admitting Provider Eladio Palomino is a 57yo male with history of HTN, HLP and GERD presenting from [facility] with abdominal pain as well as intermittent chest pain. Patient reports that over the last few weeks he has been experiencing fairly constant abdominal pain. Pain is in upper abdomen, sharp and stabbing in nature. It does not seem to be related to meals. He had some chills this evening but otherwise denies nausea, vomiting, diarrhea. No additional complaints at this time. In the ER he is afebrile, HD stable, NAD ER Course: Morphine 4mg Zofran 4mg IV Zosyn 4.5gm IV LR at 125mL/hr Principal Diagnosis choledocholithiasis Discharge Exam pt still with abdominal pain RUQ not acute abdomen no icterus some discolored urine Discharge Data Allergies Allergy/AdvReac Type Severity Reaction Status Date / Time No Known Allergies Allergy Unverified 12/02/23 20:10 Consultations 12/02/23 19:31 ED Decision to Admit Stat 12/02/23 19:37 Consult Gastroenterology Routine Ordered Studies 12/02/23 16:25 CT abd pelvis IV con only Stat CT angio chest PE protocol Stat 12/03/23 02:00 MR MRCP Urgent Hospital Course (1) Abdominal pain, epigastric: 57yo male presenting with several weeks of persistent upper abdominal/epigastric discomfort. Labs are significant for abnormal LFTs in mixed pattern with AST=78, ALT=80, ZK=135 and Tbili=1.[address] of the abdomen as above with marked biliary dilatation with 1.8cm filling defect in the common bile duct concerning for non-calcified choledocholithiasis vs sludge ball. CBD measures 2cm in diameter. He has a normal WBC count at this time. No fever or tachycardia. He does endorse some chills earlier today and reported fever at the [facility] Remains on antibiotics -Continue Zosyn 4.5gm IV q 8 hours -Morphine PRN pain-Zofran PRN nausea -Check acute hepatitis panel and Acetaminophen level not elevated -GI consultation appreciated. Unable to perform ERCP around any Medical Center. Discussed with patient called the transfer center due to the patient's bilirubin escalating by 4 times in AST doubling. Karl Mccormack did not have an on-call endoscopist per discussion. Subsequently did ask to see if endoscopist was available at [facility] as I do believe this patient's trajectory of quadrupling of his bilirubin will likely lend the patient into a worsening state over the next 24 to 48 hours subsequently it was determined there was a endoscopist available at [place] and then the patient was eventually able to have a transfer to [facility] for ERCP eval (2) HTN (hypertension): Chronic. Blood pressure mildly elevated at 146/95, heart rate has been lower may consider dose reducing coreg -Continue Carvedilol 12.5mg po BID -Continue Lisinopril 40mg po daily (3) Hyperlipidemia: Chronic. Stable -home medication Crestor (4) GERD (gastroesophageal reflux disease): Chronic. Stable -Protonix 40mg IV daily Total Time Total Time Spent Total Time Spent (In Minutes): It required greater than 30 minutes to prepare this patient for discharge. Discharge Plan Discharge Items Patient Disposition: Transfer Acute Care Hospital Reason For Visit: ABDOMINAL PAIN, CHOLEDOCHOLITHIASIS Discharge Diagnosis: choledocholithiasis Activity: Per Instructions section Activity Comment: per d/c instructions Non-emergency contact: Specialist Call non-emergency contact if: your symptoms worsen Follow-up/Referrals: Ashwin HERNANDEZ [Primary Care Provider] - Diet: Nothing by Mouth Addtl Attending Provider Instructions: You have been diagnosed with gallstones in your bile duct. This is likely the source of your fever as it can be associated with an infection. We do not have the expertise to remove these gallstones at [facility] subsequently we are transferring you to [facility] for definitive care Pending Studies at Discharge: Yes Studies:: Blood cultures Stand-Alone Forms: [facility] Skilled Items Patient informed of condition?: Yes DNR: No Discharge Level of Care: Other Communicable Disease: No Discharge Prognosis: Stable Lines: Peripheral IV Urinary Catheter: No Medications and DC Order Prescriptions: New Zosyn in dextrose (iso-osm) 4.5 gram/100 mL piggyback 4.5 g IV Q8H Continued omeprazole 40 mg Capsule,Delayed Release(Dr/Ec) 40 mg PO DAILY carbamazepine 100 mg Tablet,Chewable 100 mg PO BID rosuvastatin 5 mg Tablet 5 mg PO QPM potassium chloride [K-Dur] 20 mEq Tablet,Er Particles/Crystals 20 meq PO BID lisinopril 40 mg Tablet 40 mg PO DAILY Held carvedilol 12.5 mg Tablet 12.5 mg PO BID Hold Instructions: Resume on 12/10/23. Held due to bradycardia Rx Instructions: must administer with a meal/food Discharge Orders: Discharge Order (Routine); Ordered 12/03/23 Ordered By: Conrado Caldwell Admission Data Admit Date/Time: 12/02/23 19:37 Attending Provider: Conrado Caldwell Admit Provider: Rosy Rahman Primary Care Provider: Ashwin HERNANDEZ Other Providers: Caprice Moser Jr; Rosy Rahman Coding Level of Care Code 73468 INP/OBS DISCH >30 MIN Diagnoses Abdominal pain, epigastric R10.13 HTN (hypertension) I10 Hyperlipidemia E78.5 GERD (gastroesophageal reflux disease) K21.9
--- NOTE | 2023-12-04 06:03 | Electrocardiogram Report ---
Test Reason : Blood Pressure : / mmHG Vent. Rate : 076 BPM Atrial Rate : 076 BPM P-R Int : 232 ms QRS Dur : 100 ms QT Int : 372 ms P-R-T Axes : 035 -26 023 degrees QTc Int : 418 ms Sinus rhythm with 1st degree A-V block Possible Left atrial enlargement Left ventricular hypertrophy ( R in aVL , [place] product ) Abnormal ECG When compared with ECG of 27-NOV-2022 20:50, Non-specific change in ST segment in Lateral leads T wave inversion no longer evident in Inferior leads Confirmed by Flaco Fernandez ([id number]) on 12/04/2023 6:03:19 AM Referred By: Confirmed By:Flaco Fernandez
[2023-12-05 00:02] LABS: HBSAG NON-REACTIVE (NON-REACTIVE); Hepatitis A Antibody IgM NON-REACTIVE (NON-REACTIVE); Hepatitis B Core Antibody IgM NON-REACTIVE (NON-REACTIVE)
== END 2023-12-03 18:35 | disposition short-term general hospital (02) | DRG 446 ==
LOC: ED 15:55 → SUATTDRO 19:37 → EDINP 19:37

== ENCOUNTER 2025-03-09 15:39 | Inpatient (IN) ==
--- NOTE | 2025-03-09 16:17 | Emergency Department Note ---
Impression & Plan SBO (small bowel obstruction), Abdominal pain, Nausea & vomiting, Elevated lactic acid level ED Provider Note HISTORY OF PRESENT ILLNESS: Patient is a 59-year-old male presenting with abdominal pain. Patient reports that he woke up this morning and had pain diffusely throughout his abdomen. He reports he started vomiting and is having nausea. He reports that he had a normal bowel movement this morning that was dark and black in color. He denies any anticoagulation or antiplatelet use. He denies any recent fevers. Denies any chest pain or shortness of breath. He describes the pain as sharp stabbing sensation diffusely across his abdomen. Patient reports he has an abdominal surgical history significant for a hernia with mesh in place as well as a cholecystectomy. ROS: as above PHYSICAL EXAM: Constitutional: Patient appears in no acute distress. HENT: Head: Normocephalic and atraumatic. Eyes: EOMI, PERRL Mouth/Throat: Mucous membranes moist. Neck: Trachea midline. Neck supple. Cardiovascular: RRR, No murmurs, rubs or gallops. Intact distal pulses. Pulmonary/Chest: No respiratory distress. Breath sounds clear and equal bilaterally. No wheezes or rales. Abdominal: Abdomen soft, no rebound or guarding. Diffuse TTP Musculoskeletal: No edema, tenderness or deformity noted. Skin: Warm and dry. No rash, erythema, pallor or cyanosis Psychiatric: Appropriate mood and affect for situation. Neurological: Alert and keenly responsive. CN II-XII grossly intact, moving all extremities equally and fully. MDM: - Vitals signs stable. - History obtained via patient. History as above. - Chronic conditions affecting care: HTN; HLD - Differential diagnoses include, but are not limited to: Small bowel obstruction; diverticulitis; appendicitis; perforation; colitis; viral syndrome - Order placed for continuous cardiac monitoring. At this time, monitor showed rate of 59 bpm with normal sinus rhythm, per my interpretation. - External medical records reviewed. Discharge summary dated 12/02/2023 was reviewed. Patient was admitted to the hospital for abdominal pain and found to have choledocholithiasis. Patient was transferred to [facility] for ERCP. - EKG image interpreted by myself showed normal sinus rhythm. Rate 60 bpm. QT 434. No acute ischemic changes. - Laboratory workup interpreted by myself showed normal WBC; normal hemoglobin; elevated creatinine (Cr 1.42); elevated BUN (29); elevated anion gap (12) with relatively normal glucose (112); elevated lactic acid (2.2); chronic transaminitis (AST 44; ALT 59); normal lipase; normal troponin - Patient given 1L NS, 4 mg IV zofran and 1g IV tylenol in ER for symptomatic management - CT abdomen/pelvis with IV contrast shows a bowel obstruction with a transition point to the right anterior the aortic bifurcation, with concern for internal hernia. - On reassessment, patient still complaining of significant pain. Given 4 mg IV morphine. - Discussed case with general surgeon transitional living specialist, Dr. Regalado, at 18:04. She recommended admission to medicine and that patient should have an NG tube placed and have continued suppositories. - NGT to be placed by ED nursing staff - Discussion was had with case finisher about patient's case and need for admission - Hospitalist consulted for admission - [facility] ASSESSMENT AND PLAN: Diagnosis: Small bowel obstruction; elevated lactic acid level; nausea and vomiting; abdominal pain Plan: admit Past Med/Surg History Problem List (Updated 03/09/25 @ 18:22 by Amanda Vanessa MD) Elevated lactic acid level (Acute) Nausea & vomiting (Acute) Abdominal pain (Acute) SBO (small bowel obstruction) (Acute) Abdominal pain, epigastric (Acute) Choledocholithiasis (Acute) SBO (small bowel obstruction) HTN (hypertension) Hyperlipidemia GERD (gastroesophageal reflux disease) Incisional hernia Medical History Incisional hernia GERD (gastroesophageal reflux disease) Hyperlipidemia HTN (hypertension) SBO (small bowel obstruction) Surgical History History of cholecystectomy Social History Smoking Status: Never smoker Second Hand Exposure: No; Do You Dip or Chew Tobacco: No; Hx Alcohol Use: No Hx Substance Use: No (does not admit to use) Preferred Language: Sammarinese Communication Ability: Effective Electronic Equipment Repairer Required: No Beliefs That Will Affect Care: None Current Living Situation: Other Current Living Situation Comment: [facility]ID Christopher Feels Safe at Home: Yes Assistive Devices: None Allergies Allergies Allergy/AdvReac Type Severity Reaction Status Date / Time No Known Allergies Allergy Verified 03/09/25 16:51 Home Meds Home Medications Medication Instructions Recorded Confirmed omeprazole 40 mg capsule,delayed 40 mg PO DAILY 11/27/22 03/09/25 release lisinopril 40 mg tablet 40 mg PO DAILY 12/02/23 03/09/25 amlodipine 10 mg tablet 10 mg PO DAILY 03/09/25 03/09/25 carbamazepine 200 mg tablet 200 mg PO BID 03/09/25 03/09/25 (Tegretol) prazosin 1 mg capsule 1 mg PO HS 03/09/25 03/09/25 Results & Data (ED) Vital Signs Vital Signs - 24 hr 03/09/25 15:40 03/09/25 16:21 03/09/25 16:21 Temperature 37.1 C Temperature Source Oral Pulse Rate 67 56 L Pulse Rate [Apical] 56 L Pulse Rhythm Regular Pulse Strength Normal Respiratory Rate 18 16 16 Respiratory Effort / Characteristics Non-Labored Spontaneous Blood Pressure 132/91 Blood Pressure [Right Arm] 132/84 Blood Pressure Mean 104 Blood Pressure Mean [Right Arm] 100 Blood Pressure Position [Right Arm] Lying Pulse Oximetry 100 100 100 Oxygen Delivery Method Room Air Room Air Sepsis Recent Fever Within 48 Hours No Sepsis New/Unexplained Change in Mental Status No Sepsis Action Taken by Nursing No Action Required 03/09/25 16:24 03/09/25 18:00 Temperature Temperature Source Pulse Rate 55 L Pulse Rate [Apical] 60 Pulse Rhythm Pulse Strength Respiratory Rate 16 Respiratory Effort / Characteristics Non-Labored Spontaneous Blood Pressure Blood Pressure [Right Arm] 158/99 H Blood Pressure Mean Blood Pressure Mean [Right Arm] 118 Blood Pressure Position [Right Arm] Pulse Oximetry 100 Oxygen Delivery Method Room Air Sepsis Recent Fever Within 48 Hours Sepsis New/Unexplained Change in Mental Status Sepsis Action Taken by Nursing Laboratory Data 03/09/25 16:08 03/09/25 16:08 Lab Results 03/09/25 03/09/25 03/09/25 Range/Units 16:07 16:08 16:16 WBC 9.24 (4.8-10.8) K/ul RBC 4.66 L (4.70-6.10) M/uL Hgb 15.4 (14.0-18.0) g/dl POC Hgb 16.0 (14.0-18.0) g/dl Hct 45.2 (42.0-52.0) % POC Hct 47 (42-52) % MCV 97.0 (80.0-100.0) fL MCH 33.0 (25.0-34.0) pg MCHC 34.1 (32.0-36.0) g/dL RDW Std Deviation 47.4 H (36.4-46.3) fL RDW Coeff of Chivo 13.2 (11.5-14.5) % Plt Count 190 (130-400) K/uL MPV 11.2 (9.4-12.4) fL Immature Gran % (Auto) 0.4 % Neut % (Auto) 84.7 % Lymph % (Auto) 7.6 % Hood % (Auto) 7.0 % Eos % (Auto) 0.0 % Baso % (Auto) 0.3 % Neut # (Auto) 7.82 H (1.40-6.50) K/uL Lymph # (Auto) 0.70 L (1.20-3.40) K/uL Hood # (Auto) 0.65 H (0.11-0.59) K/uL Eos # (Auto) 0.00 (0.00-0.50) K/uL Baso # (Auto) 0.03 (0.00-0.20) K/uL Immature Gran # (Auto) 0.04 (0.01-0.20) K/uL PT 10.9 (9.0-12.0) Seconds INR 1.0 (0.9-1.1) POC Sodium 141 (135-144) mmol/L Sodium 144 (136-145) mmol/L POC Potassium 4.4 (3.3-5.0) mmol/L Potassium 4.4 (3.5-5.1) mmol/L POC Chloride 102 (101-112) mmol/L Chloride 102 (98-107) mmol/L Carbon Dioxide 30 (21-32) mmol/L POC Total CO2 31 (24-31) mmol/L Anion Gap 12 H (3-11) POC Anion Gap 13.0 L (16-25) mmol/L POC BUN 33 H (7-18) mg/dl BUN 29 H (6-23) mg/dl Creatinine 1.42 H (0.6-1.4) mg/dl POC Creatinine 1.5 H (0.6-1.3) mg/dl Est Cr Clr Drug Dosing 51.8 ml/min eGFR 57.63 BUN/Creatinine Ratio 20.4 H (10-20) Glucose 110 H (70-99(Fasting)) mg/dl POC Glucose (other) 113 H (70-99) mg/dl Lactate 2.2 H* (0.4-2.0) mmol/L Calcium 10.8 H (8.6-10.3) mg/dl POC Ioniz Calcium Mazin 1.12 (1.12-1.32) mmol/l Total Bilirubin 0.7 (0.2-1.0) mg/dl AST 44 H (13-39) U/L ALT 59 H (7-52) U/L Alkaline Phosphatase 169 H (34-104) U/L Troponin I High Sens 13.3 (0-20) pg/ml Total Protein 7.6 (6.0-8.3) gm/dl Albumin 4.9 (3.4-5.0) gm/dl Globulin 2.7 (2.5-4.0) gm/dl Albumin/Globulin Ratio 1.8 (0.9-2) Lipase 11 (11-82) U/L Blood Type A Positive Antibody Screen NEGATIVE Administered Medications Discontinued Medications Sodium Chloride (Nss) 1,000 mls @ 999 mls/hr IV .Q1H1M ONE Stop: 03/09/25 17:08 Last Infusion: 03/09/25 18:23 Dose: Infused Documented By: Admin: 03/09/25 16:19 Dose: 999 mls/hr Documented By: BRITT Acetaminophen (Ofirmev) 1,000 mg in 100 mls @ 400 mls/hr IV NOW STA Stop: 03/09/25 16:22 Last Infusion: 03/09/25 18:23 Dose: Infused Documented By: Admin: 03/09/25 16:19 Dose: 400 mls/hr Documented By: BRITT Ioversol (Optiray 320 100ml) 93 ml IV ONCE ONE Stop: 03/09/25 17:16 Last Admin: 03/09/25 17:16 Dose: 93 ml Documented By: SHAUN Morphine Sulfate (Morphine Sulfate 4 Mg/Ml 1 Ml Carp\Vial) 4 mg IV NOW STA Stop: 03/09/25 17:59 Last Admin: 03/09/25 18:16 Dose: 4 mg Documented By: PATTY Ondansetron HCl (Ondansetron Inj 2 Mg/Ml 2 Ml Vial) 4 mg IV NOW STA Stop: 03/09/25 16:09 Last Admin: 03/09/25 16:19 Dose: 4 mg Documented By: BRITT Imaging Data Radiologist's Impression: Abdomen/Pelvis CT 03/09/25 16:08 EXAM: CT Abdomen and Pelvis With Intravenous Contrast INDICATION: Nausea and vomiting. Black stool today. TECHNIQUE: Axial computed tomography images of the abdomen and pelvis with intravenous contrast. Sagittal and coronal reformatted images were created and reviewed. This CT exam was performed using one or more of the following dose reduction techniques: automated exposure control, adjustment of the mA and/or kV according to patient size, and/or use of iterative reconstruction technique. CONTRAST: 93ml of Optiray 320 was administered intravenously. COMPARISON: 12/02/2023 FINDINGS: Limitations: None. Lung bases: No abnormality noted. Pleural space: No visualized pleural effusion or pneumothorax. Heart: Stable cardiomegaly. No pericardial effusion. Mediastinum: No abnormality noted. ABDOMEN: Liver: No abnormality noted. Gallbladder and bile ducts: There is no pneumobilia with significantly improved intrahepatic biliary dilatation. The liver otherwise appears normal. Cholecystectomy. There is air in the common bile duct which tapers to normal caliber at the ampulla decreased in size compared to the prior. No stone noted. Pancreas: Homogeneous enhancement. No mass, inflammation or ductal dilation. Spleen: No significant abnormality noted. Adrenals: Stable right adrenal adenoma. Kidneys and ureters: Normal enhancement. No mass, hydronephrosis or visualized stone. Stomach and bowel: Moderate distention of the stomach and small bowel with air and fluid. Fluid-filled bowel loops in the right paracolic gutter appears to be the colon. There is moderate formed stool in the distal transverse, descending and rectosigmoid colon. There is no pneumatosis. PELVIS: Appendix: No findings to suggest acute appendicitis. Bladder: Incompletely distended and not optimally assessed. No gas or stone. Reproductive: No abnormalities noted. ABDOMEN and PELVIS: Intraperitoneal space: No free air. No significant fluid collection. Bones/joints: No acute changes. Soft tissues: No abdominal wall hernia identified. Vasculature: No abdominal aortic aneurysm. Lymph nodes: No pathologically enlarged lymph nodes. IMPRESSION: 1. Bowel obstruction noted. There appears to be a transition point to the right and anterior to the aortic bifurcation which I cannot determine is in the patulous transverse colon or distal small bowel. Internal hernia should be considered. If additional imaging is clinically warranted, follow-up study with enteric contrast (per NG tube if the patient cannot tolerate oral administration) recommended. 2. No perforation. 3. Decreased intra and extrapelvic biliary dilatation. ACT 112: N/A Electronically signed by Katherin Haider 03-09-2025 5:46 PM Discharge Plan Visit Data Chief Complaint: Abdominal Pain Stated Complaint: ABD PAIN, HARD, VOMIT ED Provider: Amanda Vanessa Discharge Problem: SBO (small bowel obstruction), Abdominal pain, Nausea & vomiting, Elevated lactic acid level Condition: Fair Forms Stand Alone Forms: My [facility] saperatec Prescriptions Prescriptions: No Action omeprazole 40 mg Capsule,Delayed Release(Dr/Ec) 40 mg PO DAILY lisinopril 40 mg Tablet 40 mg PO DAILY prazosin 1 mg Capsule 1 mg PO HS carbamazepine [Tegretol] 200 mg Tablet 200 mg PO BID amlodipine 10 mg Tablet 10 mg PO DAILY Referrals Referrals: Ashwin HERNANDEZ [Primary Care Provider] -
[2025-03-09] MEDS: ACETAMINOPHEN 1,000 MG/100 ML VIAL IV STA (16:19)
[2025-03-09] MEDS: SODIUM CHLORIDE 0.9% 1,000 ML IV ONE (16:19)
[2025-03-09] MEDS: ONDANSETRON INJ 2 MG/ML 2 ML VIAL IV STA (16:19)
[2025-03-09 16:24] LABS: Basophils # (auto) 0.03 K/uL (0.00-0.20); Basophils % (auto) 0.3 %; Hematocrit (blood only) 45.2 % (42.0-52.0); Hemoglobin 15.4 g/dl (14.0-18.0); Immature Granulocytes # (auto) 0.04 K/uL (0.01-0.20); Immature Granulocytes % (auto) 0.4 %; Lymphocytes % (auto) 7.6 %; Mean Corpuscular Hgb Conc 34.1 g/dL (32.0-36.0); Mean Platelet Volume 11.2 fL (9.4-12.4); Monocytes # (auto) 0.65 K/uL (0.11-0.59); Neutrophils # (auto) 7.82 K/uL (1.40-6.50); Neutrophils % (auto) 84.7 %; Platelet Count 190 K/uL (130-400); RDW Coefficient of Variation 13.2 % (11.5-14.5); RDW Standard Deviation 47.4 fL (36.4-46.3); Red Blood Count 4.66 M/uL (4.70-6.10); White Blood Count 9.24 K/ul (4.8-10.8)
[2025-03-09 16:28] LABS: iSTAT Creatinine 1.5 mg/dl (0.6-1.3); iSTAT Ionized Calcium 1.12 mmol/l (1.12-1.32); iSTAT Potassium 4.4 mmol/L (3.3-5.0)
[2025-03-09 16:43] LABS: Alanine Aminotransferase 59 U/L (7-52); Albumin Globulin Ratio 1.8 (0.9-2); Albumin Level 4.9 gm/dl (3.4-5.0); Alkaline Phosphatase 169 U/L (34-104); Anion Gap 12 (3-11); Aspartate Aminotransferase 44 U/L (13-39); BUN Creatinine Ratio 20.4 (10-20); Bilirubin,Total 0.7 mg/dl (0.2-1.0); Blood Urea Nitrogen 29 mg/dl (6-23); Calcium 10.8 mg/dl (8.6-10.3); Carbon Dioxide 30 mmol/L (21-32); Chloride 102 mmol/L (98-107); Creatinine Clr Calc Pharmacy 51.8 ml/min; Globulin 2.7 gm/dl (2.5-4.0); Glucose 110 mg/dl (70-99(Fasting)); Lipase 11 U/L (11-82); Potassium 4.4 mmol/L (3.5-5.1); Sodium 144 mmol/L (136-145); Total Protein 7.6 gm/dl (6.0-8.3)
[2025-03-09 16:49] LABS: Troponin I High Sensitivity 13.3 pg/ml (0-20)
[2025-03-09 16:51] LABS: Prothrombin Time 10.9 Seconds (9.0-12.0)
[2025-03-09] MEDS: OPTIRAY 320 100ml IV ONE (17:16)
--- NOTE | 2025-03-09 17:47 | CT Scan Report ---
EXAM: CT Abdomen and Pelvis With Intravenous Contrast INDICATION: Nausea and vomiting. Black stool today. TECHNIQUE: Axial computed tomography images of the abdomen and pelvis with intravenous contrast. Sagittal and coronal reformatted images were created and reviewed. This CT exam was performed using one or more of the following dose reduction techniques: automated exposure control, adjustment of the mA and/or kV according to patient size, and/or use of iterative reconstruction technique. CONTRAST: 93ml of Optiray 320 was administered intravenously. COMPARISON: 12/02/2023 FINDINGS: Limitations: None. Lung bases: No abnormality noted. Pleural space: No visualized pleural effusion or pneumothorax. Heart: Stable cardiomegaly. No pericardial effusion. Mediastinum: No abnormality noted. ABDOMEN: Liver: No abnormality noted. Gallbladder and bile ducts: There is no pneumobilia with significantly improved intrahepatic biliary dilatation. The liver otherwise appears normal. Cholecystectomy. There is air in the common bile duct which tapers to normal caliber at the ampulla decreased in size compared to the prior. No stone noted. Pancreas: Homogeneous enhancement. No mass, inflammation or ductal dilation. Spleen: No significant abnormality noted. Adrenals: Stable right adrenal adenoma. Kidneys and ureters: Normal enhancement. No mass, hydronephrosis or visualized stone. Stomach and bowel: Moderate distention of the stomach and small bowel with air and fluid. Fluid-filled bowel loops in the right paracolic gutter appears to be the colon. There is moderate formed stool in the distal transverse, descending and rectosigmoid colon. There is no pneumatosis. PELVIS: Appendix: No findings to suggest acute appendicitis. Bladder: Incompletely distended and not optimally assessed. No gas or stone. Reproductive: No abnormalities noted. ABDOMEN and PELVIS: Intraperitoneal space: No free air. No significant fluid collection. Bones/joints: No acute changes. Soft tissues: No abdominal wall hernia identified. Vasculature: No abdominal aortic aneurysm. Lymph nodes: No pathologically enlarged lymph nodes. IMPRESSION: 1. Bowel obstruction noted. There appears to be a transition point to the right and anterior to the aortic bifurcation which I cannot determine is in the patulous transverse colon or distal small bowel. Internal hernia should be considered. If additional imaging is clinically warranted, follow-up study with enteric contrast (per NG tube if the patient cannot tolerate oral administration) recommended. 2. No perforation. 3. Decreased intra and extrapelvic biliary dilatation. ACT 112: N/A Electronically signed by Katherin Haider 03-09-2025 5:46 PM
[2025-03-09] MEDS: MoRPHine SULFATE 4 MG/ML 1 ML CARP\\VIAL IV STA (18:16)
--- NOTE | 2025-03-09 19:47 | XRay Report ---
EXAM: Radiograph of the Abdomen 1 View INDICATION: Nasogastric tube placement TECHNIQUE: Frontal supine view of the abdomen/pelvis. Image obtained at 7:09 PM. COMPARISON: No relevant prior studies available. FINDINGS: Limitations: None. Gastrointestinal tract: Dilated bowel loops noted in the upper abdomen. Organs: Visualized organ shadows appear grossly normal. Bones/joints: Scoliotic spine. No acute osseous abnormality. Soft tissues: No abnormality noted. No radiopaque foreign body noted. Tubes, lines and devices: Nasogastric tube tip in the gastric fundus. IMPRESSION: Nasogastric tube terminates in the gastric fundus. Dilated bowel loops in the upper abdomen. ACT 112: N/A Electronically signed by Katherin Haider 03-09-2025 7:47 PM
--- NOTE | 2025-03-09 20:44 | History & Physical Report ---
Date of Service March 09, 2025 Assessment & Plan (1) Elevated lactic acid level: Plan: continue IV fluids replace electrolytes (2) Nausea & vomiting: Plan: PRN zofran (3) SBO (small bowel obstruction): Plan: NG tube in place (4) Abdominal pain: Plan: IV morphine Pain is 8-10/10 (5) SBO (small bowel obstruction): Plan: Conservative management for now Plan Vitals signs stable. - History obtained via patient. History as above. - Chronic conditions affecting care: HTN; HLD - Differential diagnoses include, but are not limited to: Small bowel obstruction; diverticulitis; appendicitis; perforation; colitis; viral syndrome - Order placed for continuous cardiac monitoring. At this time, monitor showed rate of 59 bpm with normal sinus rhythm, per my interpretation. - External medical records reviewed. Discharge summary dated 12/02/2023 was reviewed. Patient was admitted to the hospital for abdominal pain and found to have choledocholithiasis. Patient was transferred to [facility] for ERCP. - EKG image reviewed , place in telemetry . Rate 60 bpm. QT 434. No acute ischemic changes. - Laboratory workup interpreted by myself showed normal WBC; normal hemoglobin; elevated creatinine (Cr 1.42); elevated BUN (29); elevated anion gap (12) with relatively normal glucose (112); elevated lactic acid (2.2);repeart is trending down chronic transaminitis (AST 44; ALT 59); normal lipase; normal troponin - Patient given 1L NS, 4 mg IV zofran and 1g IV tylenol in ER for symptomatic management. PRN morphine for pain conrol - CT abdomen/pelvis with IV contrast shows a bowel obstruction with a transition point to the right anterior the aortic bifurcation, with concern for internal hernia. - On reassessment, patient still complaining of significant pain. Given 4 mg IV morphine. - Discussed case with ED physician who has spoken to alterations supervisor, Dr. Gerardo Ingram, at 18:04. She recommended admission to medicine and that patient should have an NG tube placed and have continued suppositories. - NGT to be placed by ED nursing staff History of Present Illness Chief Complaint: This is a 59-year-old male presenting with abdominal pain. Patient reports that he woke up this morning and had pain diffusely throughout his abdomen. He reports he started vomiting and is having nausea. He reports that he had a normal bowel movement this morning that was dark and black in color. He denies any anticoagulation or antiplatelet use. He denies any recent fevers. Denies any chest pain or shortness of breath. He describes the pain as sharp stabbing sensation diffusely across his abdomen. Patient reports he has an abdominal surgical history significant for a hernia with mesh in place as well as a cholecystectomy. Primary Care Provider: DAVID Christopher Allergies Allergy/AdvReac Type Severity Reaction Status Date / Time No Known Allergies Allergy Verified 03/09/25 16:51 Home Medications Medication Instructions Recorded Confirmed Type omeprazole 40 mg capsule,delayed 40 mg PO DAILY 11/27/22 03/09/25 History release lisinopril 40 mg tablet 40 mg PO DAILY 12/02/23 03/09/25 History amlodipine 10 mg tablet 10 mg PO DAILY 03/09/25 03/09/25 History carbamazepine 200 mg tablet 200 mg PO BID 03/09/25 03/09/25 History (Tegretol) prazosin 1 mg capsule 1 mg PO HS 03/09/25 03/09/25 History Past Med/Surg History Problem List (Updated 03/09/25 @ 18:22 by Amanda Vanessa MD) Elevated lactic acid level (Acute) Nausea & vomiting (Acute) Abdominal pain (Acute) SBO (small bowel obstruction) (Acute) Abdominal pain, epigastric (Acute) Choledocholithiasis (Acute) SBO (small bowel obstruction) HTN (hypertension) Hyperlipidemia GERD (gastroesophageal reflux disease) Incisional hernia Medical History Incisional hernia GERD (gastroesophageal reflux disease) Hyperlipidemia HTN (hypertension) SBO (small bowel obstruction) Surgical History History of cholecystectomy Social History Smoking Status: Never smoker Second Hand Exposure: No; Do You Dip or Chew Tobacco: No; Hx Alcohol Use: No Hx Substance Use: No (does not admit to use) Preferred Language: Turkmen Communication Ability: Effective Acid Painter Required: No Beliefs That Will Affect Care: None Current Living Situation: Other Current Living Situation Comment: [facility] Christopher Feels Safe at Home: Yes Assistive Devices: None Physical Exam Physical Exam: onstitutional: Patient appears in no acute distress. HENT: Head: Normocephalic and atraumatic. Eyes: EOMI, PERRL Mouth/Throat: Mucous membranes moist. Neck: Trachea midline. Neck supple. Cardiovascular: RRR, No murmurs, rubs or gallops. Intact distal pulses. Pulmonary/Chest: No respiratory distress. Breath sounds clear and equal bilaterally. No wheezes or rales. Abdominal: Abdomen soft, no rebound or guarding. Diffuse TTP, no bowel sounds present Musculoskeletal: No edema, tenderness or deformity noted. Skin: Warm and dry. No rash, erythema, pallor or cyanosis Psychiatric: Appropriate mood and affect for situation. Neurological: Alert and keenly responsive. CN II-XII grossly intact, moving all extremities equally and fully. Results & Data Results & Data Vital Signs (Past 12 Hours) Vital Signs Temp Pulse Pulse Resp BP BP Pulse Ox 03/09/25 20:00 59 L 16 137/86 95 03/09/25 18:43 58 L 16 146/95 H 99 03/09/25 18:00 60 16 158/99 H 100 03/09/25 16:24 55 L 03/09/25 16:21 56 L 16 100 03/09/25 16:21 56 L 16 132/84 100 03/09/25 15:40 37.1 C 67 18 132/91 100 O2 Del Method 03/09/25 20:00 Room Air 03/09/25 18:43 Room Air 03/09/25 18:00 Room Air 03/09/25 16:24 03/09/25 16:21 Room Air 03/09/25 16:21 Room Air 03/09/25 15:40 Code Status & VTE Plan VTE Prophylaxis Plan VTE Prophylaxis will be ordered: Yes PG Care Time/CCT Total # of Minutes Spent Total Time Spent with Patient: Total time spent is greater than 50% in coordination of care (as documented) at patient's floor/unit and/or counseling patient: Coding Level of Care Code 88169 INT INP/OBS CARE 2/55MIN Diagnoses Elevated lactic acid level R79.89 Nausea & vomiting R11.2 SBO (small bowel obstruction) K56.609 Abdominal pain R10.9 Time Spent (min) 55
[2025-03-09] MEDS ORDERED: ONDANSETRON INJ 2 MG/ML 2 ML VIAL IV PRN (21:52)
[2025-03-09] MEDS: MoRPHine SULFATE 2 MG/ML CARP IV STA (22:00)
[2025-03-09 22:30] LABS: Appearance Urine Clear (Clear); Bacteria Urine Automated None Seen (None Seen); Bilirubin Urine Negative (Negative); Blood Urine Negative (Negative); Cast Urine Automated 0-2 /lpf (0-2); Color Urine Dark Yellow; Epithelial Cell Urine Auto 0-2 /hpf (0-2); Glucose Urine UA Negative (Negative); Ketones Urine Trace (Negative); Leukocyte Esterase Urine Negative (Negative); Nitrite Urine Negative (Negative); Protein Urine 2+ (Negative); RBC Urine Automated 0-2 /hpf (0-2); Specific Gravity Urine > 1.045 (1.000-1.030); Urobilinogen Urine Negative (Negative); WBC Urine Automated 0-5 /hpf (0-5); pH Urine 7.5 (4.5-7.5)
[2025-03-09] MEDS: LACTATED RINGER'S 1,000 ML IV SCH (22:33)
[2025-03-09] MEDS: bisacodyL 10 MG SUPP PR STA (22:34)
--- NOTE | 2025-03-10 11:10 | Surgery Consultation ---
Date of Consultation March 10, 2025 Assessment & Plan (1) SBO (small bowel obstruction): Pt with c/o of abdominal pain, nausea, vomiting. CT scan from yesterday showing "Bowel obstruction noted. There appears to be a transition point to the right and anterior to the aortic bifurcation which I cannot determine is in the patulous transverse colon or distal small bowel. Internal hernia should be considered. If additional imaging is clinically warranted, follow-up study with enteric contrast (per NG tube if the patient cannot tolerate oral administration) recommended." Yesterday on arrival to the ER lactate was 2.2 recheck 1.9. Patient seen at bedside, abdomen is soft non distended, TTP through out. VSS, HR 63, afebrile. General surgery is recommending : Keep NPO, IV Fluids for hydration, IV antiemetic, IV analgesic and continue conservative treatment at this time. Pt seen and examined with Dr Gerardo Ingram and she agreed with the above. 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 He presented with stabbing pain which has now subsided and reports generalized abdominal pain. He has a past surgical history of cholecystectomy, and hernia repair with mesh. A ct scan in the ER yesterday is showing concerns for bowel obstruction and cannot rule out internal hernia. He has a NGT tube in that is draining brown fluids. Allergies Allergy/AdvReac Type Severity Reaction Status Date / Time No Known Allergies Allergy Verified 03/09/25 16:51 Home Medications Medication Instructions Recorded Confirmed Type omeprazole 40 mg capsule,delayed 40 mg PO DAILY 11/27/22 03/09/25 History release lisinopril 40 mg tablet 40 mg PO DAILY 12/02/23 03/09/25 History amlodipine 10 mg tablet 10 mg PO DAILY 03/09/25 03/09/25 History carbamazepine 200 mg tablet 200 mg PO BID 03/09/25 03/09/25 History (Tegretol) prazosin 1 mg capsule 1 mg PO HS 03/09/25 03/09/25 History Patient History Surgical History History of cholecystectomy Social History Smoking Status: Never smoker Second Hand Exposure: No; Do You Dip or Chew Tobacco: No; Hx Alcohol Use: No Hx Substance Use: No Preferred Language: Afghan Communication Ability: Effective Plater Helper Required: No Beliefs That Will Affect Care: None Current Living Situation: Other Current Living Situation Comment: [facility]co Feels Safe at Home: Yes Assistive Devices: None Review of Systems Gastrointestinal: + abdominal pain, + nausea and + vomitin g Physical Exam Constitutional: no acute distress Respiratory: no respiratory distress Gastrointestinal (Abdomen): Inspection/Auscultation: abdomen not distended Percussion/Palpation: + abdomen tender and abdomen soft Results & Data Vital Signs (Past 12 Hours) Vital Signs Temp Pulse Resp BP Pulse Ox O2 Del Method 03/10/25 07:58 97.7 F 63 16 91/50 L 97 Room Air 03/10/25 07:57 97.9 F 49 L 18 145/81 H 97 Room Air Diagnostic Findings [place], [place] [phone] CT Scan Report Patient: JUAN FRANCISCO GARG [id number] Admit Date: 03/09/25 MR#: [id number] Address1: [facility] Acct ID:[id number] Address2: [address] Date: 1965 [facility] Zip: [place] [address] Age: 59 Location: ED Sex: M Room/Bed: Att Phy: Diagnosis: ABD PAIN, HARD, VOMIT Angie [facility] Service Date: 03/09/25 [facility] Phy: Interpreting Phy: Katherin Haider MDAdmit Phy: Ordering Phy: Amanda Vanessa MD cc: ~ ADDENDUM CRITICAL FIND: Marlene Mendoza, 6[employer], called the ordering physician to inform them of a critical finding in the report, confirm that they received the report, and if they needed to speak with the interpreting radiologist. Dr. Vanessa saw the report and did not need to speak with the interpreting radiologist. Call was completed 5:52 PM PM 03/09/25 Electronically signed by Katherin Haider 03-09-2025 6:06 PM ADDENDUM END ADDENDUM CRITICAL FIND: Marlene Mendoza, [employer], called the ordering physician to inform them of a critical finding in the report, confirm that they received the report, and if they needed to speak with the interpreting radiologist. Dr. Vanessa saw the report and did not need to speak with the interpreting radiologist. Call was completed 5:52 PM PM 03/09/25 Electronically signed by Katherin Haider 03-09-2025 6:06 PM ADDENDUM END EXAM: CT Abdomen and Pelvis With Intravenous Contrast INDICATION: Nausea and vomiting. Black stool today. TECHNIQUE: Axial computed tomography images of the abdomen and pelvis with intravenous contrast. Sagittal and coronal reformatted images were created and reviewed. This CT exam was performed using one or more of the following dose reduction techniques: automated exposure control, adjustment of the mA and/or kV according to patient size, and/or use of iterative reconstruction technique. CONTRAST: 93ml of Optiray 320 was administered intravenously. COMPARISON: 12/02/2023 FINDINGS: Limitations: None. Lung bases: No abnormality noted. Pleural space: No visualized pleural effusion or pneumothorax. Heart: Stable cardiomegaly. No pericardial effusion. Mediastinum: No abnormality noted. ABDOMEN: Liver: No abnormality noted. Gallbladder and bile ducts: There is no pneumobilia with significantly improved intrahepatic biliary dilatation. The liver otherwise appears normal. Cholecystectomy. There is air in the common bile duct which tapers to normal caliber at the ampulla decreased in size compared to the prior. No stone noted. Pancreas: Homogeneous enhancement. No mass, inflammation or ductal dilation. Spleen: No significant abnormality noted. Adrenals: Stable right adrenal adenoma. Kidneys and ureters: Normal enhancement. No mass, hydronephrosis or visualized stone. Stomach and bowel: Moderate distention of the stomach and small bowel with air and fluid. Fluid-filled bowel loops in the right paracolic gutter appears to be the colon. There is moderate formed stool in the distal transverse, descending and rectosigmoid colon. There is no pneumatosis. PELVIS: Appendix: No findings to suggest acute appendicitis. Bladder: Incompletely distended and not optimally assessed. No gas or stone. Reproductive: No abnormalities noted. ABDOMEN and PELVIS: Intraperitoneal space: No free air. No significant fluid collection. Bones/joints: No acute changes. Soft tissues: No abdominal wall hernia identified. Vasculature: No abdominal aortic aneurysm. Lymph nodes: No pathologically enlarged lymph nodes. IMPRESSION: 1. Bowel obstruction noted. There appears to be a transition point to the right and anterior to the aortic bifurcation which I cannot determine is in the patulous transverse colon or distal small bowel. Internal hernia should be considered. If additional imaging is clinically warranted, follow-up study with enteric contrast (per NG tube if the patient cannot tolerate oral administration) recommended. 2. No perforation. 3. Decreased intra and extrapelvic biliary dilatation. ACT 112: N/A Electronically signed by Katherin Haider 03-09-2025 5:46 PM Dictated: 03/09/25 1721 Transcribed: PG Care Time/CCT Total # of Minutes Spent Total Time Spent with Patient: Total time spent is greater than 50% in coordination of care (as documented) at patient's floor/unit and/or counseling patient: Coding Level of Care Code 15624 IN/OBS CONSULT LVL 3,45M Diagnoses SBO (small bowel obstruction) K56.609
--- NOTE | 2025-03-10 12:26 | Hospitalist Progress Note ---
Date of Service March 10, 2025 Assessment & Plan (1) Elevated lactic acid level: Plan: continue IV fluids replace electrolytes (2) Nausea & vomiting: Plan: PRN zofran (3) SBO (small bowel obstruction): Plan: NG tube in place (4) Abdominal pain: Plan: IV morphine Pain is 8-10/10 Plan Per Gen surgery 1) SBO (small bowel obstruction): Pt with c/o of abdominal pain, nausea, vomiting. CT scan from yesterday showing "Bowel obstruction noted. There appears to be a transition point to the right and anterior to the aortic bifurcation which I cannot determine is in the patulous transverse colon or distal small bowel. Internal hernia should be considered. If additional imaging is clinically warranted, follow-up study with enteric contrast (per NG tube if the patient cannot tolerate oral administration) recommended." Yesterday on arrival to the ER lactate was 2.2 recheck 1.9. Patient seen at bedside, abdomen is soft non distended, TTP throughout. VSS, HR 63, afebrile. General surgery is recommending : Keep NPO, IV Fluids for hydration, IV antiemetic, IV analgesic and continue conservative treatment at this time. Pt seen and examined with Dr Gerardo Ingram and she agreed with the above. Admission and Anticipated Discharge Date Admission Date: March 09, 2025 Subjective Follow-up of patient who has an NG tube for bowel obstruction NG is draining dark brownish-reddish colored-fluid patient pain is better controlled Review of Systems Review of Systems: Positive for abdominal pain distention has significantly reduced after NG tube was placed last night Physical Exam Physical Exam: onstitutional: Patient appears in no acute distress. HENT: Head: Normocephalic and atraumatic. Eyes: EOMI, PERRL Mouth/Throat: Mucous membranes moist. Neck: Trachea midline. Neck supple. Cardiovascular: RRR, No murmurs, rubs or gallops. Intact distal pulses. Pulmonary/Chest: No respiratory distress. Breath sounds clear and equal bilaterally. No wheezes or rales. Abdominal: Abdomen soft, no rebound or guarding. Diffuse TTP, no bowel sounds present Musculoskeletal: No edema, tenderness or deformity noted. Skin: Warm and dry. No rash, erythema, pallor or cyanosis Psychiatric: Appropriate mood and affect for situation. Neurological: Alert and keenly responsive. CN II-XII grossly intact, moving all extremities equally and fully. Results & Data Results & Data Vital Signs (Past 12 Hours) Vital Signs Temp Pulse Resp BP Pulse Ox O2 Del Method 03/10/25 07:58 36.5 C 63 16 91/50 L 97 Room Air 03/10/25 07:57 36.6 C 49 L 18 145/81 H 97 Room Air Diagnostic Findings Per Gen surgery Pt with c/o of abdominal pain, nausea, vomiting. CT scan from yesterday showing "Bowel obstruction noted. There appears to be a transition point to the right and anterior to the aortic bifurcation which I cannot determine is in the patulous transverse colon or distal small bowel. Internal hernia should be considered. If additional imaging is clinically warranted, follow-up study with enteric contrast (per NG tube if the patient cannot tolerate oral PG Care Time/CCT Total # of Minutes Spent Total Time Spent with Patient: Total time spent is greater than 50% in coordination of care (as documented) at patient's floor/unit and/or counseling patient: Coding Level of Care Code 70726 SUB INP/OBS CARE 2/35MIN Diagnoses Elevated lactic acid level R79.89 Nausea & vomiting R11.2 SBO (small bowel obstruction) K56.609 Abdominal pain R10.9 Time Spent (min) 35
[2025-03-10] MEDS: MoRPHine SULFATE 2 MG/ML CARP IV PRN (20:57)
[2025-03-10 23:21] LABS: C Reactive Protein < 0.50 mg/dl (0-0.5)
[2025-03-11 07:24] LABS: Hematocrit (blood only) 37.5 % (42.0-52.0); Hemoglobin 12.4 g/dl (14.0-18.0); Mean Corpuscular Hemoglobin 33.3 pg (25.0-34.0); Mean Corpuscular Hgb Conc 33.1 g/dL (32.0-36.0); Mean Corpuscular Volume 100.8 fL (80.0-100.0); Mean Platelet Volume 10.8 fL (9.4-12.4); Platelet Count 125 K/uL (130-400); RDW Coefficient of Variation 13.1 % (11.5-14.5); RDW Standard Deviation 48.4 fL (36.4-46.3); Red Blood Count 3.72 M/uL (4.70-6.10); White Blood Count 5.79 K/ul (4.8-10.8)
[2025-03-11 07:32] LABS: Calcium 9.4 mg/dl (8.6-10.3); Creatinine Clr Calc Pharmacy 77.9 ml/min; Potassium 3.6 mmol/L (3.5-5.1)
--- NOTE | 2025-03-11 09:07 | Hospitalist Progress Note ---
Date of Service March 11, 2025 Assessment & Plan (1) SBO (small bowel obstruction): (2) Abdominal pain: Plan 59 M presented wtih abdominal pain N/V with imaging suggestive of Bowel obstruction, did have some lactic acidosis on presentation, prevous gall bladder surgery pt states was open surgery and subsequent mesh at cholecystectomy scar site. #SBO (small bowel obstruction): a transition point to the right and anterior to the aortic bifurcation which is difficult to determine is in the patulous transverse colon or distal small bowel. Internal hernia should be considered. NG tube to LIS Lactic acid improved with hydration parenteral pain medicine and General surgery follow up # hypernatremia, will increase ivf rate and consider 1/2 nss if continues to increase, mild elevation of BUN suggest need for increased hydration Admission and Anticipated Discharge Date Admission Date: March 09, 2025 Subjective pt is resting some abd pain, dark black/brown liquid draining from ngt did have previous abdominal surgery Physical Exam Physical Exam: normal to high pitched bowel sounds soft abd but is tender without guarding or rebound did have bowel movement 03/11/25 Results & Data Results & Data Vital Signs (Past 12 Hours) Vital Signs Temp Pulse Resp BP Pulse Ox O2 Del Method 03/11/25 07:49 97.9 F 49 L 16 159/82 H 95 Room Air Laboratory Results review cbc review chemistry PG Care Time/CCT Total # of Minutes Spent Total Time Spent with Patient: Total time spent is greater than 50% in coordination of care (as documented) at patient's floor/unit and/or counseling patient: Coding Level of Care Code 98613 SUB INP/OBS CARE 2/35MIN Diagnoses SBO (small bowel obstruction) K56.609 Abdominal pain R10.9
--- NOTE | 2025-03-11 12:19 | Electrocardiogram Report ---
Test Reason : Blood Pressure : */* mmHG Vent. Rate : 60 BPM Atrial Rate : 60 BPM P-R Int : 184 ms QRS Dur : 108 ms QT Int : 434 ms P-R-T Axes : 32 -23 -5 degrees QTcB Int : 434 ms Normal sinus rhythm Incomplete right bundle branch block Minimal voltage criteria for LVH, may be normal variant ( Andrea product ) Abnormal ECG When compared with ECG of 02-Dec-2023 16:03, TX interval has decreased Confirmed by Brent Francois ([id number]) on 03/11/2025 12:19:03 PM Referred By: [facility] Confirmed By: Brent Francois
--- NOTE | 2025-03-11 13:12 | Surgery Progress Note ---
Date of Service March 11, 2025 Assessment & Plan (1) SBO (small bowel obstruction): Plan: 59M with SBO. No leukocytosis, afebrile, HD stable Continue with conservative management at this time Confirm continuous NGT function at [facility]. He may be clamped to ambulate. IVF chemical DVT ppx ok consider GI PPX Dr. Zuluaga will be on service now and will follow up tomorrow. Please call/message the radio electronics officer surgical [place] with questions. Admission and Anticipated Discharge Date Admission Date: March 09, 2025 Subjective This patient was seen and examined today. He denies N/V, admits to intermittent abdominal pain and denies passing flatus. Physical Exam Constitutional: + ill appearing (chronically ill appeari ng) and + cachectic; no acute distress, not in distress and not diaphoretic Respiratory: normal respiratory effort; no respiratory distress, no labored breathing and does not use accessory muscles Gastrointestinal (Abdomen): Inspection/Auscultation: abdomen normal to inspection; abdomen not distended Percussion/Palpation: + abdomen tender (mild to moderate TTP across mid to upper abdomen), + guarding (voluntary) and abdomen soft NGT in place, canister was changed at some point since I last saw the patient yesterday and was not functioning. Proper canister connection was restored Skin: no rashes, warm and dry Results & Data Vital Signs (Past 12 Hours) Vital Signs Temp Pulse Resp BP Pulse Ox O2 Del Method 03/11/25 07:49 36.6 C 49 L 16 159/82 H 95 Room Air PG Care Time/CCT Total # of Minutes Spent Total Time Spent with Patient: Total time spent is greater than 50% in coordination of care (as documented) at patient's floor/unit and/or counseling patient: Coding Level of Care Code 11999 SUB INP/OBS CARE 2/35MIN Diagnoses SBO (small bowel obstruction) K56.609
[2025-03-11] MEDS: MoRPHine SULFATE 2 MG/ML CARP IV STA (22:59)
[2025-03-12 07:28] LABS: Hematocrit (blood only) 38.2 % (42.0-52.0); Hemoglobin 12.8 g/dl (14.0-18.0); Mean Corpuscular Hemoglobin 33.4 pg (25.0-34.0); Mean Corpuscular Hgb Conc 33.5 g/dL (32.0-36.0); Mean Corpuscular Volume 99.7 fL (80.0-100.0); Mean Platelet Volume 11.1 fL (9.4-12.4); Platelet Count 124 K/uL (130-400); RDW Coefficient of Variation 12.9 % (11.5-14.5); RDW Standard Deviation 47.3 fL (36.4-46.3); Red Blood Count 3.83 M/uL (4.70-6.10); White Blood Count 5.62 K/ul (4.8-10.8)
[2025-03-12 07:44] LABS: BUN Creatinine Ratio 25.6 (10-20); Calcium 9.6 mg/dl (8.6-10.3); Creatinine Clr Calc Pharmacy 80.5 ml/min; Potassium 4.2 mmol/L (3.5-5.1)
--- NOTE | 2025-03-12 07:45 | Surgery Progress Note ---
Date of Service March 12, 2025 Assessment & Plan (1) SBO (small bowel obstruction): Plan: Pt w/ history of incisional hernia repair and cholecystectomy here w/ nausea/vomiting/pain with concern for SBO WBC 5, Hbg 12. BMP pending. HRs 40-50s NGT in place draining 1/9 over last 12 hours, 3.3 over last 24 documented Abdomen soft, non distended, but tender in the central region to palpation He does deny nausea. He reports + flatus. Pain has been intermittently coming and going KUB ordered for further evaluation. Would keep NGT in place for now OOB ambulating as able small amount of flatus. slow progress. will eval with sbft. Admission and Anticipated Discharge Date Admission Date: March 09, 2025 Subjective Patient reports his pain is intermittent and comes and goes. Right now he rates it a 3/10 in severity in his central abdomen. Currently denies nausea/vomiting. Reports + flatus. Physical Exam Physical Exam: awake/alert Respiratory: normal respiratory effort Cardiovascular: Rate/Rhythm: + bradycardic Gastrointestinal (Abdomen): Inspection/Auscultation: abdomen not distended Percussion/Palpation: + abdomen tender (ttp mid abdomen) and abdomen soft Results & Data Vital Signs (Past 12 Hours) Vital Signs Temp Pulse Pulse Resp BP Pulse Ox O2 Del Method 03/12/25 07:19 97.7 F 44 L 37 L 15 172/65 H 98 Room Air 03/11/25 22:31 39 L 03/11/25 20:05 97.9 F 37 L 18 168/75 H 96 Room Air PG Care Time/CCT Total # of Minutes Spent Total Time Spent with Patient: Total time spent is greater than 50% in coordination of care (as documented) at patient's floor/unit and/or counseling patient: Coding Level of Care Code 85829 SUB INP/OBS CARE 11/24MIN Diagnoses SBO (small bowel obstruction) K56.609
--- NOTE | 2025-03-12 09:28 | XRay Report ---
KUB HISTORY: eval sbo COMPARISON STUDY: 03/09/2025 FINDINGS: Nasogastric tube tip is stable in the proximal stomach with the sidehole near the GE juncti on. There is mild to moderate retained stool. There is a mildly distended small bowel loop at the left up per quadrant measuring 3.5 cm diameter, improved. No other bowel distention seen. No gross free air. IMPRESSION: Persistent mild small bowel distention, improved. ACT 112: Negative or not required by law. The above report was generated using voice recognition software. It may contain grammatical, syntax o r spelling errors. Electronically signed by: Eladio Rojas M.D. 03/12/2025 9:27 AM
[2025-03-12] MEDS ORDERED: DEXTROSE 10% 1,000 ML IV PRN (14:12)
--- NOTE | 2025-03-12 14:17 | Hospitalist Progress Note ---
Date of Service March 12, 2025 Assessment & Plan (1) SBO (small bowel obstruction): (2) Abdominal pain: Plan 59 M presented wtih abdominal pain N/V with imaging suggestive of Bowel obstruction, did have some lactic acidosis on presentation, prevous gall bladder surgery pt states was open surgery and subsequent mesh at cholecystectomy scar site. #SBO (small bowel obstruction): a transition point to the right and anterior to the aortic bifurcation which is difficult to determine is in the patulous transverse colon or distal small bowel. Internal hernia should be considered. NG tube to LIS Lactic acid improved with hydration parenteral pain medicine and General surgery follow up , start ppn on , no further bowel movement # hypernatremia, will ask pharmacy to assist in ppn and free water content, mild elevation of BUN suggest need for increased hydration Admission and Anticipated Discharge Date Admission Date: March 09, 2025 Subjective persistent abdominal pain and frustration about lack of relief Physical Exam Physical Exam: normal to high pitched bowel sounds soft abd but is tender without guarding or rebound did have bowel movement 03/11/25 Results & Data Results & Data Vital Signs (Past 12 Hours) Vital Signs Temp Pulse Pulse Resp BP Pulse Ox O2 Del Method 03/12/25 07:19 97.7 F 44 L 37 L 15 172/65 H 98 Room Air Laboratory Results reviewed cbc reviewed chemistry PG Care Time/CCT Total # of Minutes Spent Total Time Spent with Patient: Total time spent is greater than 50% in coordination of care (as documented) at patient's floor/unit and/or counseling patient: Coding Level of Care Code 70728 SUB INP/OBS CARE 2/35MIN Diagnoses SBO (small bowel obstruction) K56.609 Abdominal pain R10.9
[2025-03-12] MEDS ORDERED: TPN/PPN CONSULT PHARMACY PRN (14:24)
[2025-03-12 14:55] LABS: Hematocrit (blood only) 39.9 % (42.0-52.0); Hemoglobin 13.4 g/dl (14.0-18.0); Mean Corpuscular Hgb Conc 33.6 g/dL (32.0-36.0); Mean Corpuscular Volume 98.3 fL (80.0-100.0); Platelet Count 131 K/uL (130-400); RDW Coefficient of Variation 12.9 % (11.5-14.5); RDW Standard Deviation 46.4 fL (36.4-46.3); Red Blood Count 4.06 M/uL (4.70-6.10); White Blood Count 4.88 K/ul (4.8-10.8)
[2025-03-12 15:10] LABS: BUN Creatinine Ratio 26.1 (10-20); Bilirubin,Total 1.5 mg/dl (0.2-1.0); Calcium 9.5 mg/dl (8.6-10.3); Creatinine Clr Calc Pharmacy 82.3 ml/min; Magnesium 1.9 mg/dl (1.7-2.4); Phosphorus 3.4 mg/dl (2.5-4.9); Potassium 3.5 mmol/L (3.5-5.1)
[2025-03-12] MEDS: LACTATED RINGER'S 1,000 ML IV SCH (22:34)
[2025-03-13 08:27] LABS: Hematocrit (blood only) 37.4 % (42.0-52.0); Hemoglobin 12.8 g/dl (14.0-18.0); Mean Corpuscular Hemoglobin 33.2 pg (25.0-34.0); Mean Corpuscular Hgb Conc 34.2 g/dL (32.0-36.0); Mean Corpuscular Volume 97.1 fL (80.0-100.0); Mean Platelet Volume 11.6 fL (9.4-12.4); Platelet Count 131 K/uL (130-400); RDW Coefficient of Variation 12.9 % (11.5-14.5); RDW Standard Deviation 45.5 fL (36.4-46.3); Red Blood Count 3.85 M/uL (4.70-6.10)
[2025-03-13 08:42] LABS: Albumin Globulin Ratio 1.9 (0.9-2); Albumin Level 3.8 gm/dl (3.4-5.0); BUN Creatinine Ratio 30.1 (10-20); Bilirubin,Total 1.3 mg/dl (0.2-1.0); Calcium 9.6 mg/dl (8.6-10.3); Creatinine Clr Calc Pharmacy 77.9 ml/min; Potassium 3.1 mmol/L (3.5-5.1); Total Protein 5.8 gm/dl (6.0-8.3)
[2025-03-13 11:06] LABS: Magnesium 1.9 mg/dl (1.7-2.4); Phosphorus 3.5 mg/dl (2.5-4.9)
--- NOTE | 2025-03-13 11:14 | Surgery Progress Note ---
Date of Service March 13, 2025 Assessment & Plan (1) SBO (small bowel obstruction): Plan: Still awaiting return of bowel function. Scheduled for small bowel follow- through today. Will follow-up after imaging study Admission and Anticipated Discharge Date Admission Date: March 09, 2025 Subjective Patient seen. Nothing new to report. He is passing flatus but no bowel movement. He denies abdominal pain Physical Exam Constitutional: WD/WN, vitals as above no acute distress and not ill appearing Eyes: PERRL, conjunctivae normal, anicteric sclerae EOM intact bilaterally ENMT: external ear and nose normal, oropharynx normal Ears: no hearing impairment Neck: trachea midline, no thyromegaly Respiratory: normal respiratory effort; no respiratory distress and does not use accessory muscles Cardiovascular: Rate/Rhythm: regular rate and regular rhythm Gastrointestinal (Abdomen): Soft. Nontender nondistended. Minimal bowel sounds Skin: no rashes, warm and dry Psychiatric: Orientation: alert, oriented x 3 and cooperative Results & Data Vital Signs (Past 12 Hours) Vital Signs Temp Pulse Resp BP Pulse Ox O2 Del Method 03/13/25 07:39 36.9 C 42 L 18 144/69 H 97 Room Air PG Care Time/CCT Total # of Minutes Spent Total Time Spent with Patient: Total time spent is greater than 50% in coordination of care (as documented) at patient's floor/unit and/or counseling patient: Coding Level of Care Code 70857 SUB INP/OBS CARE 11/24MIN Diagnoses SBO (small bowel obstruction) K56.609
[2025-03-13] MEDS ORDERED: POTASSIUM CHLORIDE / WTR 10 MEQ/100 ML PLCT IV SCH (11:15)
--- NOTE | 2025-03-13 11:47 | Pharmacy Report ---
Pharmacy Initial PN Consult Nt - Date of Service March 13, 2025 - Scope Pharmacy has been consulted on this date to manage parenteral nutrition orders and order appropriate labs. As part of the Nutrition Support Team Guidelines, pharmacy will work in conjunction with dietary when determining the patients ca loric needs. - Subjective * The patient is a 59 year old Male admitted on 03/09/25 for BOWEL OBSTRUCTION. * Patient is to receive parenteral nutrition for the bowel obstruction with several days of NPO status. * Pertinent PMHx: hx of incisional hernia repair and cholecystectomy - Objective Vascular Access: * Patient currently has a peripheral line. * Peripheral line was confirmed by IV Team to be acceptable for PPN use on 03/12/25 Height & Weight (Last Documented) Height 5 ft 6 in Weight 62.823 kg Diet Order(s) 03/09/25 15:52 NPO Intake & Ouput (24hrs) 03/12/25 03/13/25 03/14/25 06:59 06:59 06:59 Intake Total 3000 / 3000 4872.5 / 4872.5 Output Total 5375 / 5375 3600 / 3600 Balance -2375 / -2375 1272.5 / 1272.5 Selected Laboratory Results 03/12/25 03/13/25 14:25 07:48 Sodium 148 H 149 H Potassium 3.5 3.1 L Chloride 102 100 Carbon Dioxide 37 H 37 H Anion Gap 9 12 H BUN 23 28 H Creatinine 0.88 0.93 BUN/Creatinine Ratio 26.1 H 30.1 H Glucose 97 93 Calcium 9.5 9.6 Phosphorus 3.4 3.5 Magnesium 1.9 1.9 Total Bilirubin 1.5 H 1.3 H AST 34 29 ALT 57 H 49 Alkaline Phosphatase 156 H [address] - Initial Nutrition Assessment Start: 03/12/25 20:42 Freq: Status: Active Protocol: Document 03/12/25 20:43 LOS (Rec: 03/12/25 21:06 LOS [id number]) - Assessment & Plan Assessment: * Appreciate dietitians recommendations for macronutrients. Plan: * For Day #1 of PPN administration, the following will be ordered: * Macronutrients: * Amino Acids: 42.5 grams/day * Dextrose: 50 grams/day * Lipids: none * Micronutrients: * Sodium chloride: 40 mEq/day * Potassium phosphate: 15 mMol/day * Potassium chloride: 20 mEq/day * Potassium acetate: 20 mEq/day * Magnesium sulfate: 8.12 mEq/day * Calcium gluconate: 4.65 mEq/day * Multivitamins: 10 mL/day * Trace elements: 1 mL/day * Thiamine: 100 mg/day * Folic Acid: 1 mg/day * Total volume of 1065 mL will be infused over 24 hours and will provide 340 kcal/day * Patient is on PPN which has a maximum mOsm/L of 900. Final osmolarity of current solution is 832.6 mOsm/L. * Labs will be ordered per PN protocol. * Pharmacy will follow and adjust PN orders on a daily basis. Thank you!
[2025-03-13] MEDS: POTASSIUM CHLORIDE / WTR 10 MEQ/100 ML PLCT IV SCH (12:33)
[2025-03-13] MEDS: PANTOprazole 40 MG/10 ML SYR IV SCH (14:31)
--- NOTE | 2025-03-13 14:32 | Fluoroscopy Report ---
[place] small bowel follow through CLINICAL HISTORY: eval sbo; contrast via NGT. TECHNIQUE: Oral barium was administered to the patient and serial radiographs of the abdomen were pe rformed. COMPARISON STUDY: 03/12/2025 FLUOROSCOPY IMAGES: 4 FINDINGS: Contrast was administered through the nasogastric tube. Contrast progresses normally throug h the stomach to the small bowel. By 30 minutes, the contrast has progressed to the right colon. No b owel distention seen. Small bowel fold pattern is unremarkable. IMPRESSION: No evidence of bowel obstruction seen. ACT 112: Negative or not required by law. The above report was generated using voice recognition software. It may contain grammatical, syntax o r spelling errors. Electronically signed by: Eladio Rojas M.D. 03/13/2025 2:31 PM
[2025-03-13] MEDS: [UNRECOGNIZED DRUG - OTHER] IV SCH (16:34)
[2025-03-13] MEDS: PERIPHERAL TPN IV SCH (16:34)
--- NOTE | 2025-03-13 16:34 | Hospitalist Progress Note ---
Date of Service March 13, 2025 Assessment & Plan (1) SBO (small bowel obstruction): (2) Abdominal pain: Plan 59 M presented wtih abdominal pain N/V with imaging suggestive of Bowel obstruction, did have some lactic acidosis on presentation, prevous gall bladder surgery pt states was open surgery and subsequent mesh at cholecystectomy scar site. #SBO (small bowel obstruction): Seemingly resolved. Small bowel follow-through shows no bowel obstruction at this time 03/13/2025 NG tube is clamped liquid diet is started we will continue hyper bowel peripherally until patient takes good nutrition as the patient's BMI is 22 Lactic acid improved with hydration Surgery is following but likely no intervention is required # hypernatremia, will liberalize free water orally Admission and Anticipated Discharge Date Admission Date: March 09, 2025 Subjective Patient seen. Nothing new to report. no bowel movement. He denies abdominal pain Physical Exam Physical Exam: normal bowel sounds soft abd but is tender without guarding or rebound Results & Data Results & Data Vital Signs (Past 12 Hours) Vital Signs Temp Pulse Resp BP Pulse Ox O2 Del Method 03/13/25 15:28 98.4 F 107 H 18 168/77 H 96 Room Air 03/13/25 07:39 98.4 F 42 L 18 144/69 H 97 Room Air Laboratory Results review cbc review chemistry PG Care Time/CCT Total # of Minutes Spent Total Time Spent with Patient: Total time spent is greater than 50% in coordination of care (as documented) at patient's floor/unit and/or counseling patient: Coding Level of Care Code 56780 SUB INP/OBS CARE 2/35MIN Diagnoses SBO (small bowel obstruction) K56.609 Abdominal pain R10.9
[2025-03-14 07:08] LABS: Hematocrit (blood only) 35.3 % (42.0-52.0); Hemoglobin 11.9 g/dl (14.0-18.0); Mean Corpuscular Hemoglobin 33.2 pg (25.0-34.0); Mean Corpuscular Hgb Conc 33.7 g/dL (32.0-36.0); Mean Corpuscular Volume 98.6 fL (80.0-100.0); Mean Platelet Volume 11.6 fL (9.4-12.4); Platelet Count 123 K/uL (130-400); RDW Coefficient of Variation 12.8 % (11.5-14.5); RDW Standard Deviation 46.2 fL (36.4-46.3); Red Blood Count 3.58 M/uL (4.70-6.10); White Blood Count 4.65 K/ul (4.8-10.8)
[2025-03-14 07:23] LABS: BUN Creatinine Ratio 27.6 (10-20); Calcium 8.9 mg/dl (8.6-10.3); Creatinine Clr Calc Pharmacy 63.4 ml/min; Phosphorus 3.9 mg/dl (2.5-4.9); Potassium 3.3 mmol/L (3.5-5.1)
[2025-03-14] MEDS: POTASSIUM CHLORIDE CRTAB 20 MEQ TABCR PO STA (08:54)
--- NOTE | 2025-03-14 12:52 | Surgery Progress Note ---
Date of Service March 14, 2025 Assessment & Plan (1) SBO (small bowel obstruction): Plan: Still awaiting return of bowel function. KUB with no signs of obstruction Will advance to full liquids this afternoon Continue medical management per primary team, surgery will continue to follow Admission and Anticipated Discharge Date Admission Date: March 09, 2025 Subjective Patient seen and evaluated this morning. He is tolerating clears without any issues of worsening pain, nausea or vomiting Passing gas however no BM as of yet KUB with no signs of obstruction VSS Physical Exam Constitutional: WD/WN, vitals as above Respiratory: normal respiratory effort, lungs clear to auscultation Cardiovascular: Rate/Rhythm: regular rate Gastrointestinal (Abdomen): Abdomen soft, nondistended, nontender No rebound, guarding or signs of peritonitis Skin: no rashes, warm and dry Results & Data Vital Signs (Past 12 Hours) Vital Signs Temp Pulse Resp BP Pulse Ox O2 Del Method 03/14/25 07:42 36.6 C 37 L 16 140/79 98 Room Air PG Care Time/CCT Total # of Minutes Spent Total Time Spent with Patient: Total time spent is greater than 50% in coordination of care (as documented) at patient's floor/unit and/or counseling patient: Coding [place] [address] SUB INP/OBS CARE 11/24MIN Patient Type Established Medical Decision Making Straight Forward Diagnoses SBO (small bowel obstruction) K56.609
--- NOTE | 2025-03-14 14:38 | Hospitalist Progress Note ---
Date of Service March 14, 2025 Assessment & Plan (1) SBO (small bowel obstruction): (2) Abdominal pain: Plan 59 M presented wtih abdominal pain N/V with imaging suggestive of Bowel obstruction, did have some lactic acidosis on presentation, prevous gall bladder surgery pt states was open surgery and subsequent mesh at cholecystectomy scar site. #SBO (small bowel obstruction): Seemingly resolved. Small bowel follow-through shows no bowel obstruction at this time 03/13/2025 NGT removed, clear liquid diet and advance, BMI is 22 Lactic acid improved with hydration Surgery is following but likely no intervention is required # hypernatremia, resolved anticipate back to fdc 03/15/25 Admission and Anticipated Discharge Date Admission Date: March 09, 2025 Subjective pt seen ngt removed, less abd pain, tolerated clear diet Physical Exam Physical Exam: normal bowel sounds soft abd but is tender without guarding or rebound Results & Data Results & Data Vital Signs (Past 12 Hours) Vital Signs Temp Pulse Resp BP Pulse Ox O2 Del Method 03/14/25 07:42 98 F 37 L 16 140/79 98 Room Air Laboratory Results reviewed wbc reviewed chemistry- low potassium po augmentation PG Care Time/CCT Total # of Minutes Spent Total Time Spent with Patient: Total time spent is greater than 50% in coordination of care (as documented) at patient's floor/unit and/or counseling patient: Coding Level of Care Code 22015 SUB INP/OBS CARE 2/35MIN Diagnoses SBO (small bowel obstruction) K56.609 Abdominal pain R10.9
--- NOTE | 2025-03-15 09:15 | Surgery Progress Note ---
Date of Service March 15, 2025 Assessment & Plan (1) SBO (small bowel obstruction): Plan: Pt here w/ abdominal pain with concern for SBO SBFT obtained this week and revealed no evidence of ongoing obstruction Diet has been advanced, pt is having + bowel function and no n/v Hard to read patient, but reports some abd discomforts Will see how bfast goes and continue him on a regular diet for now If tolerates we are ok w/ dispo [facility] covering the wknd if patient remains admitted Admission and Anticipated Discharge Date Admission Date: March 09, 2025 Subjective Patient's diet has been advanced. He reports feeling like he has some stomach pains but can't express if really related to food intake. No vomiting. Had some BMs per patient and are documented by nursing. Physical Exam Physical Exam: awake, alert Results & Data Vital Signs (Past 12 Hours) Vital Signs Temp Pulse Resp BP Pulse Ox O2 Del Method 03/15/25 07:59 98.2 F 44 L 17 142/79 H 98 Room Air PG Care Time/CCT Total # of Minutes Spent Total Time Spent with Patient: Total time spent is greater than 50% in coordination of care (as documented) at patient's floor/unit and/or counseling patient: Coding Level of Care Code 17979 SUB INP/OBS CARE 11/24MIN Diagnoses SBO (small bowel obstruction) K56.609
--- NOTE | 2025-03-15 10:44 | Hospitalist Progress Note ---
Date of Service March 15, 2025 Assessment & Plan (1) SBO (small bowel obstruction): Plan: Small bowel follow-through shows no bowel obstruction at this time 03/13/2025 NGT removed, diet advanced to regular patient tolerating Lactic acid improved with hydration Surgery is following but likely no intervention is required D/C pending tolerating regular diet without issues, likely 03/16 (2) Abdominal pain: Plan 59 M presented wtih abdominal pain N/V with imaging suggestive of Bowel obstruction, did have some lactic acidosis on presentation, previous gall bladder surgery pt states was open surgery and subsequent mesh at cholecystectomy scar site. Anticipate back to detention 03/16/25 Admission and Anticipated Discharge Date Admission Date: March 09, 2025 Subjective Pt states he is tolerating his regular diet, but has a hard time eating. Still complaining of slight abdominal discomfort. He has documented BMs. Review of Systems Review of Systems: CONST: Negative for fever, body aches and chills. HENT: Negative for neck pain/stiffness, headache, congestion, sore throat, swelling. EYES: Negative for discharge/pain or vision changes. RESP: Negative for cough/hemoptysis and shortness of breath. CV: Negative chest pain, difficulty breathing, palpitations. ABD: Negative pain, nausea, vomiting. : Negative increase frequency, dysuria, blood in urine or stool. MUSC: Negative for muscle aches, edema. SKIN: Negative rash, lesions/sores. NEURO: Negative headache, dizziness, weakness. Physical Exam 2 Physical Exam: GENERAL APPEARANCE NAD, activity normal for age, well developed/ well nourished, no cyanosis, pallor, or diaphoresis. EYES lids/conjunctiva normal. EARS/NOSE/THROAT Mucous membranes moist, nares normal, lips/teeth normal uvula midline without oral pharyngeal erythema, exudate or swelling TMs normal bilaterally. No lymphangitis/lymphedema. HEAD/NECK normocephalic atraumatic, no facial trauma, neck is supple. RESPIRATORY respiratory effort normal, speaks in full sentences, no tripod position, no accessory muscle use. Lungs clear to auscultation without rhonchi, wheezes, rales CARDIAC Regular rate and rhythm, no edema. ABDOMINAL Soft, ND/NT. No evidence of fluid wave. No pulsatile masses on exam, rebound tenderness, Leiva sign or pain over Mcburney's point. MUSCLES/EXTREMITIES No abnormal range of motion, no swelling. SKIN Warm, pink and dry. No rashes, dermatoses, petechiae or lesions. NEUROLOGICAL Speech is clear and appropriate. Normal level of consciousness. Gait and coordination are normal. 5/5 strength in all extremities. PSYCH Normal mood and affect. Judgement/competence is appropriate Results & Data Results & Data Vital Signs (Past 12 Hours) Vital Signs Temp Pulse Resp BP Pulse Ox O2 Del Method 03/15/25 07:59 36.8 C 44 L 17 142/79 H 98 Room Air PG Care Time/CCT Total # of Minutes Spent Total Time Spent with Patient: Total time spent is greater than 50% in coordination of care (as documented) at patient's floor/unit and/or counseling patient: Coding Level of Care Code 93827 SUB INP/OBS CARE 2/35MIN Diagnoses SBO (small bowel obstruction) K56.609 Abdominal pain R10.9
[2025-03-15 20:49] VITALS: O2SAT 98
[2025-03-16 07:49] VITALS: RESP 16; TEMP 98.4
--- NOTE | 2025-03-16 10:34 | Discharge Summary ---
Discharge Summary Date of Service March 16, 2025 Principal Dx & Hospital Course #1 = Principal Diagnosis (1) SBO (small bowel obstruction): Small bowel follow-through shows no bowel obstruction at this time 03/13/2025 NGT removed, diet advanced to regular patient tolerating Lactic acid improved with hydration Surgery is following but likely no intervention is required D/C pending tolerating regular diet without issues, likely 03/16 (2) Abdominal pain: Plan 59 M presented wtih abdominal pain N/V with imaging suggestive of Bowel obstruction, did have some lactic acidosis on presentation, previous gall bladder surgery pt states was open surgery and subsequent mesh at cholecystectomy scar site. Anticipate back to [facility] 03/16/25 Discharge Exam GENERAL APPEARANCE NAD, activity normal for age, well developed/ well nourished, no cyanosis, pallor, or diaphoresis. EYES lids/conjunctiva normal. EARS/NOSE/THROAT Mucous membranes moist, nares normal, lips/teeth normal uvula midline without oral pharyngeal erythema, exudate or swelling TMs normal bilaterally. No lymphangitis/lymphedema. HEAD/NECK normocephalic atraumatic, no facial trauma, neck is supple. RESPIRATORY respiratory effort normal, speaks in full sentences, no tripod position, no accessory muscle use. Lungs clear to auscultation without rhonchi, wheezes, rales CARDIAC Regular rate and rhythm, no edema. ABDOMINAL Soft, ND/NT. No evidence of fluid wave. No pulsatile masses on exam, rebound tenderness, Leiva sign or pain over Mcburney's point. MUSCLES/EXTREMITIES No abnormal range of motion, no swelling. SKIN Warm, pink and dry. No rashes, dermatoses, petechiae or lesions. NEUROLOGICAL Speech is clear and appropriate. Normal level of consciousness. Gait and coordination are normal. 5/5 strength in all extremities. PSYCH Normal mood and affect. Judgement/competence is appropriate Discharge Plan Discharge Items [facility] Reason For Visit: BOWEL OBSTRUCTION Discharge Diagnosis: small bowel obstruction Condition on Discharge: Fair Activity: Resume your previous activity Non-emergency contact: Primary Care Provider Call non-emergency contact if: you have any medication questions Follow-up/Referrals: Ashwin HERNANDEZ [Primary Care Provider] - Diet: Regular Addtl Attending Provider Instructions: Follow up with PMD in 2 weeks Pending Studies at Discharge: No Stand-Alone Forms: My [facility] Skilled Items Patient informed of condition?: No Discharge Level of Care: Other Communicable Disease: No Discharge Prognosis: Stable Lines: None Urinary Catheter: No Medications and DC Order Prescriptions: Continued omeprazole 40 mg Capsule,Delayed Release(Dr/Ec) 40 mg PO DAILY lisinopril 40 mg Tablet 40 mg PO DAILY prazosin 1 mg Capsule 1 mg PO HS carbamazepine [Tegretol] 200 mg Tablet 200 mg PO BID amlodipine 10 mg Tablet 10 mg PO DAILY Discharge Orders: Discharge Order (Routine); Ordered 03/16/25 Ordered By: Agus Zayas Admission Data Admit Date/Time: 03/09/25 18:43 Attending Provider: Agus Zayas Admit Provider: Malgorzata Palencia Primary Care Provider: Ashwin HERNANDEZ Other Providers: Arash Regalado; Malgorzata Palencia Hospital Stay Data Consultations 03/09/25 18:34 Consult General Surgery Routine ED Decision to Admit Stat 03/09/25 18:43 Consult General Surgery Routine Diagnostic Imagining Performed 03/09/25 16:08 CT Abd and Pelvis [CT abd pelvis IV con only] Stat 03/13/25 08:00 [place] small bowel follow through Routine Pending Results Patient Have Any Pending Studies at Discharge: No Discharge Instructions Given to Patient (Per Discharging Provider) Follow up with PMD in 2 weeks Total Time Total Time Spent Total Time Spent (In Minutes): 50 Coding Level of Care Code 78412 INP/OBS DISCH >30 MIN Diagnoses SBO (small bowel obstruction) K56.609 Abdominal pain R10.9
[2025-03-16 11:00] VITALS: BP 129/62; PULSE 59
== END 2025-03-16 11:27 | DRG 389 ==
LOC: ED 15:39 → SUATTDRO 18:43 → 3W 18:43

== ENCOUNTER 2025-03-16 20:06 | Inpatient (IN) ==
[2025-03-16 20:52] LABS: Basophils # (auto) 0.05 K/uL (0.00-0.20); Basophils % (auto) 0.7 %; Eosinophils # (auto) 0.03 K/uL (0.00-0.50); Eosinophils % (auto) 0.4 %; Hematocrit (blood only) 37.1 % (42.0-52.0); Hemoglobin 12.9 g/dl (14.0-18.0); Immature Granulocytes # (auto) 0.06 K/uL (0.01-0.20); Immature Granulocytes % (auto) 0.8 %; Lymphocytes % (auto) 19.7 %; Mean Corpuscular Hemoglobin 33.7 pg (25.0-34.0); Mean Corpuscular Hgb Conc 34.8 g/dL (32.0-36.0); Mean Corpuscular Volume 96.9 fL (80.0-100.0); Mean Platelet Volume 12.2 fL (9.4-12.4); Monocytes # (auto) 0.67 K/uL (0.11-0.59); Monocytes % (auto) 8.8 %; Neutrophils # (auto) 5.31 K/uL (1.40-6.50); Neutrophils % (auto) 69.6 %; Platelet Count 154 K/uL (130-400); RDW Coefficient of Variation 12.8 % (11.5-14.5); RDW Standard Deviation 45.2 fL (36.4-46.3); Red Blood Count 3.83 M/uL (4.70-6.10); White Blood Count 7.62 K/ul (4.8-10.8)
[2025-03-16 21:00] LABS: Albumin Globulin Ratio 1.7 (0.9-2); Albumin Level 3.9 gm/dl (3.4-5.0); BUN Creatinine Ratio 15.8 (10-20); Bilirubin,Total 0.6 mg/dl (0.2-1.0); Calcium 9.8 mg/dl (8.6-10.3); Globulin 2.3 gm/dl (2.5-4.0); Potassium 3.8 mmol/L (3.5-5.1); Total Protein 6.2 gm/dl (6.0-8.3)
[2025-03-16 21:06] LABS: Troponin I High Sensitivity 30.4 pg/ml (0-20)
--- NOTE | 2025-03-16 23:52 | History & Physical Report ---
Date of Service March 16, 2025 Assessment & Plan (1) Abdominal pain: (2) Nausea & vomiting: (3) Elevated lactic acid level: (4) Elevated troponin: (5) OLEKSANDR (acute kidney injury): (6) HTN (hypertension): (7) GERD (gastroesophageal reflux disease): Plan 59-year-old male with history of hypertension, hyperlipidemia and GERD, recent admission for small bowel obstruction returns with recurrence of abdominal pain, nausea, vomiting and p.o. intolerance. Patient is afebrile, hemodynamically stable in the ER. Labs do revealed a mildly elevated lactate at 2 point2.4 as well as mildly elevated lipase at 99. Also with mild elevation of BUN and creatinine to 27 and 1.71, respectively. Increased in comparison to discharge values #Abdominal pain/nausea vomitingpatient with recent small bowel obstruction. His symptoms did improve prior to discharge. He reports that the present symptoms feel similar. CT of the abdomen and pelvis has been obtained but read is pending. Bowel sounds are present. No flatus. Last BM prior to discharge earlier today 03/16 Admit to medical Keep n.p.o. IV hydration with LR at 125 mL/h x 2 L Zofran as needed for nausea General Surgery consultation pending results of CT #Elevated lactic acid levellactate = 2.4. Patient is hemodynamically stable IV fluid with LR at 125 mL/h x 2 L Repeat lactate with a.m. labs #Elevated troponin= 30.4 --> 30. Patient denies chest pain. Most likely secondary to OLEKSANDR -Telemetry monitoring -Awaiting EKG #OLEKSANDR - Cr=1.71, was 1.16 on DC -LR at 125mL/hr x 2L -Repeat chemistry in AM #Hypertension hold amlodipine and lisinopril for now Continue to monitor #GERD Protonix 40 mg IV daily History of Present Illness Chief Complaint: Abdominal pain, nausea, vomiting Primary Care Provider: DAVID Christopher Elaido Palomino is a 59-year-old male with history of hernia repair with mesh in place as well as cholecystectomy presenting with abdominal pain. Patient was recently admitted from March 09 through March 16 with small bowel obstruction. He was managed with an NG tube, pain management and antiemetics. Patient had a small bowel follow-through performed on March 13 which showed no evidence of bowel obstruction. He improved clinically during his stay. Diet was advanced and he was having bowel movements. patient was discharged back to longterm earlier today and was overall feeling good. Upon his arrival back to longterm he changes close, made his bed and went for dinner. He reports eating just several bites of his meal when he developed severe, acute abdominal pain with nausea and nonbloody/nonbilious emesis. Patient continues to have some bandlike abdominal pain across the middle of his abdomen. He also reports decreased urine output. In the ER he is afebrile, hemodynamically stable, nontoxic in appearance ER course: Tylenol 1 g IV Normal saline x 1 L Zofran 4 mg IV Allergies Allergy/AdvReac Type Severity Reaction Status Date / Time No Known Allergies Allergy Verified 03/09/25 16:51 Home Medications Medication Instructions Recorded Confirmed Type omeprazole 40 mg capsule,delayed 40 mg PO DAILY 11/27/22 03/16/25 History release lisinopril 40 mg tablet 40 mg PO DAILY 12/02/23 03/16/25 History amlodipine 10 mg tablet 10 mg PO QAM 03/09/25 03/16/25 History carbamazepine 200 mg tablet 200 mg PO BID 03/09/25 03/16/25 History (Tegretol) prazosin 1 mg capsule 1 mg PO HS 03/09/25 03/16/25 History Past Med/Surg History Problem List (Updated 03/16/25 @ 23:57 by Rosy Rahman DO) OLEKSANDR (acute kidney injury) Elevated troponin Elevated lactic acid level (Acute) Nausea & vomiting (Acute) Abdominal pain (Acute) SBO (small bowel obstruction) (Acute) Abdominal pain, epigastric (Acute) Choledocholithiasis (Acute) SBO (small bowel obstruction) HTN (hypertension) Hyperlipidemia GERD (gastroesophageal reflux disease) Incisional hernia Surgical History History of cholecystectomy Social History Smoking Status: Unknown if ever smoked Second Hand Exposure: No; Do You Dip or Chew Tobacco: No; Hx Alcohol Use: No Hx Substance Use: No Preferred Language: Greek Communication Ability: Effective Stranner Required: No Beliefs That Will Affect Care: None Current Living Situation: Other Current Living Situation Comment: DAVID christopher Feels Safe at Home: Yes Assistive Devices: None Review of Systems Review of Systems: All systems reviewed & are unremarkable except as noted in HPI & below Physical Exam Physical Exam: General: patient resting comfortably, NAD, non-toxic in appearance, AA&O x 4 Skin: warm, dry, intact, no rashes or lesions HEENT: NC/AT, PERRL, EOMI, anicteric sclera, conjunctiva without injection, external ear normal to inspection and nontender, nares patent, moist mucus membranes, dentition intact, no oropharyngeal lesions, neck supple, trachea midline, no LAD, no thyromegaly, no JVD Heart: +S1/S2, regular With occasional ectopy, no m/r/g Lungs: equal air entry bilaterally, no rales/rhonchi/wheezes Abd: +BS, soft, mildly distended, diffusely tender to palpation, no rebound/guarding, no masses/organomegaly/ascites Ext: warm, 2+ pulses in UE/LE bilaterally, no clubbing/cyanosis or edema Neuro: nonfocal, patient AA&O x 4, speech intact, no facial droop, moving all extremities on command with equal strength 5/5 Results & Data Results & Data Vital Signs (Past 12 Hours) Vital Signs Temp Pulse Pulse Resp BP BP Pulse Ox 03/16/25 22:00 53 L 15 126/71 96 03/16/25 20:40 98 03/16/25 20:21 61 03/16/25 20:21 62 20 119/77 98 03/16/25 20:08 36.8 C 76 18 127/76 97 O2 Del Method 03/16/25 22:00 Room Air 03/16/25 20:40 Room Air 03/16/25 20:21 03/16/25 20:21 Room Air 03/16/25 20:08 Room Air Laboratory Results Laboratory Results WBC 7.62 K/ul (4.8-10.8) 03/16/25 20:20 RBC 3.83 M/uL (4.70-6.10) L 03/16/25 20:20 Hgb 12.9 g/dl (14.0-18.0) L 03/16/25 20:20 Hct 37.1 % (42.0-52.0) L 03/16/25 20:20 MCV 96.9 fL (80.0-100.0) 03/16/25 20:20 MCH 33.7 pg (25.0-34.0) 03/16/25 20:20 MCHC 34.8 g/dL (32.0-36.0) 03/16/25 20:20 RDW Std Deviation 45.2 fL (36.4-46.3) 03/16/25 20:20 RDW Coeff of Chivo 12.8 % (11.5-14.5) 03/16/25 20:20 Plt Count 154 K/uL (130-400) 03/16/25 20:20 MPV 12.2 fL (9.4-12.4) 03/16/25 20:20 Immature Gran % (Auto) 0.8 % 03/16/25 20:20 Neut % (Auto) 69.6 % 03/16/25 20:20 Lymph % (Auto) 19.7 % 03/16/25 20:20 [place] % (Auto) 8.8 % 03/16/25 20:20 Eos % (Auto) 0.4 % 03/16/25 20:20 Baso % (Auto) 0.7 % 03/16/25 20:20 Neut # (Auto) 5.31 K/uL (1.40-6.50) 03/16/25 20:20 Lymph # (Auto) 1.50 K/uL (1.20-3.40) 03/16/25 20:20 [place] # (Auto) 0.67 K/uL (0.11-0.59) H 03/16/25 20:20 Eos # (Auto) 0.03 K/uL (0.00-0.50) 03/16/25 20:20 Baso # (Auto) 0.05 K/uL (0.00-0.20) 03/16/25 20:20 Immature Gran # (Auto) 0.06 K/uL (0.01-0.20) 03/16/25 20:20 Sodium 141 mmol/L (136-145) 03/16/25 20:20 Potassium 3.8 mmol/L (3.5-5.1) 03/16/25 20:20 Chloride 99 mmol/L (98-107) 03/16/25 20:20 Carbon Dioxide 34 mmol/L (21-32) H 03/16/25 20:20 Anion Gap 8 (3-11) 03/16/25 20:20 BUN 27 mg/dl (6-23) H 03/16/25 20:20 Creatinine 1.71 mg/dl (0.6-1.4) H 03/16/25 20:20 Est Cr Clr Drug Dosing 43.0 ml/min 03/16/25 20:20 eGFR 46.11 03/16/25 20:20 BUN/Creatinine Ratio 15.8 (10-20) 03/16/25 20:20 Glucose 112 mg/dl (70-99(Fasting)) H 03/16/25 20:20 Lactate 2.4 mmol/L (0.4-2.0) H* 03/16/25 20:44 Calcium 9.8 mg/dl (8.6-10.3) 03/16/25 20:20 Total Bilirubin 0.6 mg/dl (0.2-1.0) 03/16/25 20:20 AST 23 U/L (13-39) 03/16/25 20:20 ALT 32 U/L (7-52) 03/16/25 20:20 Alkaline Phosphatase 126 U/L (34-104) H 03/16/25 20:20 Troponin I High Sens 30.0 pg/ml (0-20) H 03/16/25 22:35 Total Protein 6.2 gm/dl (6.0-8.3) 03/16/25 20:20 Albumin 3.9 gm/dl (3.4-5.0) 03/16/25 20:20 Globulin 2.3 gm/dl (2.5-4.0) L 03/16/25 20:20 Albumin/Globulin Ratio 1.7 (0.9-2) 03/16/25 20:20 Lipase 99 U/L (11-82) H 03/16/25 20:[address] of the abdomen and pelvis obtainedread pending Code Status & VTE Plan VTE Prophylaxis Plan VTE Prophylaxis will be ordered: Yes PG Care Time/CCT Total # of Minutes Spent Total Time Spent with Patient: Total time spent is greater than 50% in coordination of care (as documented) at patient's floor/unit and/or counseling patient: Coding Level of Care Code 48276 INT INP/OBS CARE 3/75MIN Diagnoses Abdominal pain R10.9 Nausea & vomiting R11.2 Elevated lactic acid level R79.89 Elevated troponin R79.89 OLEKSANDR (acute kidney injury) N17.9 HTN (hypertension) I10 GERD (gastroesophageal reflux disease) K21.9
--- NOTE | 2025-03-17 00:25 | Emergency Department Note ---
Impression & Plan Abdominal pain, Nausea & vomiting, SBO (small bowel obstruction) ED Provider Note NAME: JUAN FRANCISCO [id number] [address] AGE: 59 SEX: M : 1965 ARRIVES VIA: Walk-In INFORMANT: Patient, ED PROVIDER(S): Seamus Lacey MD CHIEF COMPLAINT: Abdominal pain HPI: This is a 59-year-old male presenting for nausea, vomiting and abdominal pain. Patient was discharged from the hospital today after a small bowel obstruction. He had been placed on NG tube during his admission. This was removed and patient was able to tolerate 1 meal prior to discharge. He has not had any food that did not throw up when he went back to his shelter. Otherwise he notes extreme pain in the epigastric region at this time. He reports no diarrhea. He has not had as much bowel movements. He reports no chest pain or shortness of breath at this time. No pleurisy. No leg swelling ROS: See above HPI for pertinent positives & negatives. A total of 10 systems reviewed and were otherwise negative. PAST MEDICAL HISTORY: See Below PAST SURGICAL HISTORY: See Below FAMILY HISTORY: See Below SOCIAL HISTORY: See Below HOME MEDICATIONS: See Below ALLERGIES: See Below VITALS: See Below PHYSICAL EXAMINATION: General: resting comfortably in no acute distress Head: Normocephalic and atraumatic Eyes: Normal inspection, extraocular muscles intact Ear, nose, throat: Normal external exam Neck: Normal range of motion Respiratory: lungs clear to auscultation bilaterally Cardiovascular: Regular rate/rhythm, no murmur GI: Distended, minimally tender abdomen epigastrically Extremities: nontender, moves all extremities Neuro: The patient awake and alert, appropriately conversive, no focal deficits, symmetric faces Skin: Warm, dry, and intact MEDICAL DECISION MAKING: This is a 59-year-old male present for nausea, vomiting abdominal pain. Patient discharged today, comes back for recurrent abdominal pain and nausea with vomiting. - Lab work is reviewed showing no leukocytosis. Hemoglobin 12.9. Otherwise electrolytes not significantly different. However new creatinine elevation of 1.71 up from 1.16. His lactic acid was elevated 2.4 on arrival. His initial troponin was 30.4, uptrending from previous value. Lipase is 99, uptrending. - CT imaging ordered to rule out persistent SBO versus new process. - upon my independent interpretation I do see a distention of the stomach. As patient has nausea and vomiting, will place NG tube at this time. - There are significant delays in CAT scan reading. This time patient admitted to the hospitalist service for recurrent symptoms suspecting persistent SBO. Differential diagnosis: SBO, diverticulitis, bowel perforation, gastritis Independent History obtained from: Skilled Nursing guards Diagnostics interpreted by me: ECG: ECG independently interpreted by me with sinus bradycardia, rate of 51, normal axis, 1st degrees AV block, normal QRS, normal QTc, no ST segment elevations consistent with STEMI criteria Cardiac Monitoring: An order was placed for continuous cardiac monitoring. The monitor shows a rate of 50 with sinus rhythm. Past Med/Surg History Problem List (Updated 03/18/25 @ 01:57 by Seamus Lacey MD) OLEKSANDR (acute kidney injury) Elevated troponin Elevated lactic acid level (Acute) Nausea & vomiting (Acute) Abdominal pain (Acute) SBO (small bowel obstruction) (Acute) Abdominal pain, epigastric (Acute) Choledocholithiasis (Acute) SBO (small bowel obstruction) HTN (hypertension) Hyperlipidemia GERD (gastroesophageal reflux disease) Incisional hernia Surgical History History of cholecystectomy Social History Smoking Status: Never smoker Second Hand Exposure: No; Do You Dip or Chew Tobacco: No; Hx Alcohol Use: No Hx Substance Use: No Preferred Language: Iranian Communication Ability: Effective [place] Required: No Beliefs That Will Affect Care: None Current Living Situation: Other Current Living Situation Comment: [facility] Feels Safe at Home: Yes Safety Concerns: Feels Safe At This Time Assistive Devices: None Allergies Allergies Allergy/AdvReac Type Severity Reaction Status Date / Time No Known Allergies Allergy Verified 03/09/25 16:51 Home Meds Home Medications Medication Instructions Recorded Confirmed omeprazole 40 mg capsule,delayed 40 mg PO DAILY 11/27/22 03/16/25 release lisinopril 40 mg tablet 40 mg PO DAILY 12/02/23 03/16/25 amlodipine 10 mg tablet 10 mg PO QAM 03/09/25 03/16/25 carbamazepine 200 mg tablet 200 mg PO BID 03/09/25 03/16/25 (Tegretol) prazosin 1 mg capsule 1 mg PO HS 03/09/25 03/16/25 Results & Data (ED) Vital Signs Vital Signs - 24 hr 03/16/25 20:08 03/16/25 20:21 03/16/25 20:21 Temperature 36.8 C Temperature Source Temporal Artery Scan Pulse Rate 76 61 Pulse Rate [Apical] 62 Pulse Rhythm [Apical] Respiratory Rate 18 20 Respiratory Effort / Characteristics Non-Labored Spontaneous Respiratory Depth Normal Normal Respiratory Pattern Regular Blood Pressure 127/76 Blood Pressure [Right Arm] 119/77 Blood Pressure Mean 93 Blood Pressure Mean [Right Arm] 91 Pulse Oximetry 97 98 Oxygen Delivery Method Room Air Room Air Sepsis Recent Fever Within 48 Hours No Sepsis New/Unexplained Change in Mental Status No Sepsis Action Taken by Nursing No Action Required 03/16/25 20:40 03/16/25 22:00 03/17/25 00:00 Temperature Temperature Source Pulse Rate Pulse Rate [Apical] 53 L 50 L Pulse Rhythm [Apical] Regular Respiratory Rate 15 13 Respiratory Effort / Characteristics Non-Labored Spontaneous Non-Labored Spontaneous Respiratory Depth Normal Normal Respiratory Pattern Regular Regular Blood Pressure Blood Pressure [Right Arm] 126/71 135/75 Blood Pressure Mean Blood Pressure Mean [Right Arm] 89 95 Pulse Oximetry 98 96 96 Oxygen Delivery Method Room Air Room Air Room Air Sepsis Recent Fever Within 48 Hours Sepsis New/Unexplained Change in Mental Status Sepsis Action Taken by Nursing Laboratory Data 03/17/25 04:29 03/17/25 04:29 Lab Results 03/16/25 03/16/25 03/16/25 Range/Units 20:20 20:44 22:35 WBC 7.62 (4.8-10.8) K/ul RBC 3.83 L (4.70-6.10) M/uL Hgb 12.9 L (14.0-18.0) g/dl Hct 37.1 L (42.0-52.0) % MCV 96.9 (80.0-100.0) fL MCH 33.7 (25.0-34.0) pg MCHC 34.8 (32.0-36.0) g/dL RDW Std Deviation 45.2 (36.4-46.3) fL RDW Coeff of Chivo 12.8 (11.5-14.5) % Plt Count 154 (130-400) K/uL MPV 12.2 (9.4-12.4) fL Immature Gran % (Auto) 0.8 % Neut % (Auto) 69.6 % Lymph % (Auto) 19.7 % [place] % (Auto) 8.8 % Eos % (Auto) 0.4 % Baso % (Auto) 0.7 % Neut # (Auto) 5.31 (1.40-6.50) K/uL Lymph # (Auto) 1.50 (1.20-3.40) K/uL [place] # (Auto) 0.67 H (0.11-0.59) K/uL Eos # (Auto) 0.03 (0.00-0.50) K/uL Baso # (Auto) 0.05 (0.00-0.20) K/uL Immature Gran # (Auto) 0.06 (0.01-0.20) K/uL Sodium 141 (136-145) mmol/L Potassium 3.8 (3.5-5.1) mmol/L Chloride 99 (98-107) mmol/L Carbon Dioxide 34 H (21-32) mmol/L Anion Gap 8 (3-11) BUN 27 H (6-23) mg/dl Creatinine 1.71 H (0.6-1.4) mg/dl Est Cr Clr Drug Dosing 43.0 ml/min eGFR 46.11 BUN/Creatinine Ratio 15.8 (10-20) Glucose 112 H (70-99(Fasting)) mg/dl Lactate 2.4 H* (0.4-2.0) mmol/L Calcium 9.8 (8.6-10.3) mg/dl Total Bilirubin 0.6 (0.2-1.0) mg/dl AST 23 (13-39) U/L ALT 32 (7-52) U/L Alkaline Phosphatase 126 H (34-104) U/L Troponin I High Sens 30.4 H 30.0 H (0-20) pg/ml Total Protein 6.2 (6.0-8.3) gm/dl Albumin 3.9 (3.4-5.0) gm/dl Globulin 2.3 L (2.5-4.0) gm/dl Albumin/Globulin Ratio 1.7 (0.9-2) Lipase 99 H (11-82) U/L Administered Medications Amlodipine Besylate (Amlodipine Besylate 5 Mg Tab) 10 mg PO QAM MEAGHAN Stop: 04/16/25 11:14 Last Admin: 03/17/25 11:08 Dose: 10 mg Documented By: STACIE Carbamazepine (Carbamazepine 200 Mg Tablet) 200 mg PO BID MEAGHAN Stop: 04/16/25 08:59 Last Admin: 03/17/25 20:43 Dose: 200 mg Documented By: Admin: 03/17/25 09:05 Dose: 200 mg Documented By: STACIE Heparin Sodium (Porcine) (Heparin Sod 5,000 Unit/0.5 Ml Vial) 5,000 units SQ Q12 MEAGHAN Stop: 04/16/25 08:59 Last Admin: 03/17/25 20:43 Dose: 5,000 units Documented By: Admin: 03/17/25 09:05 Dose: 5,000 units Documented By: STACIE Pantoprazole Sodium (Protonix) 40 mg in 10 mls @ 5 mls/min IV DAILY MEAGHAN Stop: 04/16/25 08:59 Last Admin: 03/17/25 09:05 Dose: 5 mls/min Documented By: STACIE Prazosin HCl (Prazosin Hcl 1 Mg Cap) 1 mg PO HS MEAGHAN Stop: 04/16/25 20:59 Last Admin: 03/17/25 20:42 Dose: 1 mg Documented By: ALE Discontinued Medications Acetaminophen (Ofirmev) 1,000 mg in 100 mls @ 400 mls/hr IV NOW STA Stop: 03/16/25 21:43 Last Infusion: 03/16/25 21:58 Dose: Infused Documented By: Admin: 03/16/25 21:41 Dose: 400 mls/hr Documented By: MADELIN Sodium Chloride (Nss) 1,000 mls @ 999 mls/hr IV .Q1H1M ONE Stop: 03/16/25 22:37 Last Infusion: 03/16/25 22:44 Dose: Infused Documented By: Admin: 03/16/25 21:41 Dose: 999 mls/hr Documented By: MADELIN Lactated Ringer's (Lr) 1,000 mls @ 125 mls/hr IV .Q8H MEAGHAN Stop: 03/17/25 09:54 Last Infusion: 03/17/25 10:55 Dose: Infused Documented By: Admin: 03/17/25 02:21 Dose: 125 mls/hr Documented By: MADELIN Sodium Chloride (Nss) 500 mls @ 80 mls/hr IV .Q6H15M MEAGHAN Stop: 03/17/25 20:44 Last Infusion: 03/17/25 21:09 Dose: Infused Documented By: Admin: 03/17/25 14:49 Dose: 80 mls/hr Documented By: STACIE Ioversol (Optiray 320 100ml) 93 ml IV ONCE ONE Stop: 03/16/25 21:27 Last Admin: 03/16/25 21:26 Dose: 93 ml Documented By: SHAUN Lidocaine HCl (Lidocaine 2% Jelly 5 Ml Tube) 5 ml EXT NOW ONE Stop: 03/16/25 23:57 Last Admin: 03/17/25 02:12 Dose: Not Given Documented By: MADELIN Lidocaine HCl (Lidocaine Viscous 2% 15 Ml Udc) 15 ml MT NOW ONE Stop: 03/17/25 00:25 Last Admin: 03/17/25 02:12 Dose: Not Given Documented By: MADELIN Ondansetron HCl (Ondansetron Inj 2 Mg/Ml 2 Ml Vial) 4 mg IV NOW STA Stop: 03/16/25 21:39 Last Admin: 03/16/25 21:41 Dose: 4 mg Documented By: MADELIN Discharge Plan Visit Data Chief Complaint: Vomiting Stated Complaint: VOMITING,ABD PAIN,RECENT TREATMENT FOR SBO ED Provider: Seamus Lacey Discharge Problem: Abdominal pain, Nausea & vomiting, SBO (small bowel obstruction) Patient Disposition: Admitted As Inpatient Condition: Fair Discharge Instructions Interventions: ED Discharge Assessment Last Done: 03/17/25 01:56 Discharge Problem: Abdominal pain Qualifiers: Abdominal location: generalized Qualified Code(s): R10.84 - Generalized abdominal pain Nausea & vomiting Qualifiers: Vomiting type: bilious vomiting Qualified Code(s): R11.14 - Bilious vomiting
--- NOTE | 2025-03-17 02:12 | CT Scan Report ---
Exam(s): CT ABDOMEN + PELVIS With Contrast IV Amt: OPTIRAY 320 93ML EXAM: CT Abdomen and Pelvis With Intravenous Contrast CLINICAL HISTORY: Reason for exam: SBO, DC -> recurrent?. TECHNIQUE: Axial computed tomography images of the abdomen and pelvis with intravenous contrast. CTDI is 13.47 mGy and DLP is 596.55 mGy-cm. Automated exposure control was utilized for the study. A dose lowering technique was utilized adhering to the principles of ALARA. CONTRAST: Patient received OPTIRAY 320 93ML of IV contrast COMPARISON: CT Abdomen Pelvis dated 03/09/25 FINDINGS: Lung bases: Unremarkable. No mass. No consolidation. ABDOMEN: Liver: Unremarkable. No mass. Gallbladder and bile ducts: Cholecystectomy. Pneumobilia, mildly decreased. No ductal dilation. Pancreas: Unremarkable. No mass. No ductal dilation. Spleen: Unremarkable. No splenomegaly. Adrenals: Stable 1.9 cm right adrenal nodule/adenoma. Kidneys and ureters: Unremarkable. No solid mass. No hydronephrosis. Stomach and bowel: Enteric contrast throughout the colon. No abnormally dilated loops/bowel obstruction. Stomach is distended with heterogeneous ingested contents. No mucosal thickening. Colonic diverticulosis. PELVIS: Appendix: No findings to suggest acute appendicitis. Normal appendix. Bladder: Unremarkable. No mass. Reproductive: Unremarkable as visualized. ABDOMEN and PELVIS: Intraperitoneal space: Unremarkable. No free air. No significant fluid collection. Bones/joints: No acute fracture. No dislocation. Soft tissues: Unremarkable. Vasculature: Unremarkable. No abdominal aortic aneurysm. Lymph nodes: Unremarkable. No enlarged lymph nodes. IMPRESSION: No acute findings in the abdomen or pelvis. Electronically signed by: Fritz Dixon M.D. 03/17/25 02:11 AM
[2025-03-17 02:22] LABS: Appearance Urine Clear (Clear); Bacteria Urine Automated None Seen (None Seen); Bilirubin Urine Negative (Negative); Blood Urine Negative (Negative); Cast Urine Automated 0-2 /lpf (0-2); Color Urine Yellow; Epithelial Cell Urine Auto 0-2 /hpf (0-2); Glucose Urine UA Negative (Negative); Ketones Urine Trace (Negative); Leukocyte Esterase Urine Negative (Negative); Nitrite Urine Negative (Negative); Protein Urine 1+ (Negative); RBC Urine Automated 0-2 /hpf (0-2); Specific Gravity Urine > 1.045 (1.000-1.030); Urobilinogen Urine Positive (Negative); WBC Urine Automated 0-5 /hpf (0-5); pH Urine 6.5 (4.5-7.5)
[2025-03-17 04:53] LABS: Hematocrit (blood only) 32.3 % (42.0-52.0); Hemoglobin 10.9 g/dl (14.0-18.0); Mean Corpuscular Hemoglobin 33.1 pg (25.0-34.0); Mean Corpuscular Hgb Conc 33.7 g/dL (32.0-36.0); Mean Corpuscular Volume 98.2 fL (80.0-100.0); Mean Platelet Volume 11.8 fL (9.4-12.4); Platelet Count 116 K/uL (130-400); RDW Standard Deviation 46.2 fL (36.4-46.3); Red Blood Count 3.29 M/uL (4.70-6.10); White Blood Count 4.89 K/ul (4.8-10.8)
[2025-03-17 05:23] LABS: Albumin Level 3.3 gm/dl (3.4-5.0); BUN Creatinine Ratio 19.4 (10-20); Bilirubin Direct 0.2 mg/dl (0-0.2); Bilirubin,Total 0.4 mg/dl (0.2-1.0); Calcium 8.7 mg/dl (8.6-10.3); Creatinine Clr Calc Pharmacy 54.9 ml/min; Potassium 3.5 mmol/L (3.5-5.1); Total Protein 4.7 gm/dl (6.0-8.3)
--- NOTE | 2025-03-17 10:00 | Gastrointestinal Consultation ---
Date of Consultation March 17, 2025 Assessment & Plan (1) Abdominal pain: He had an SBO on last admit and now with same symptoms without signs of SBO. His vomiting has stopped but his pain continues and he is tender over his right abdomen. I suspect he may have issues related to his mesh and perhaps some intermittent trapping of small bowel related to the mesh. I don't know why his stomach/duodenum would all of a sudden become the issue with the history of SBO last week. May consider EGD at some point but I would give consideration to problems related to his surgical mesh. History of Present Illness Reason for Consultation: abdominal pain, nausea and vomiting Attending Physician: oRsy Rahman DO History of Present Illness 59 year old man who was just discharged after battling "small bowel obstruction" for about a week, went back to correctional facility and problems recurred. Patient states he had just started vomiting again and was unable to hold anything down. Complains of pain over his right abdomen. Denies ingestion of foreign substances. Takes only bp meds according to him. Denies NSAID usage. While CT showed SBO on last admit, admit CT does not show evidence of SBO this admit. He has had abdominal hernia repair with mesh placement on his right side. He also had choledocholithiasis last year. Allergies Allergy/AdvReac Type Severity Reaction Status Date / Time No Known Allergies Allergy Verified 03/09/25 16:51 Home Medications Medication Instructions Recorded Confirmed Type omeprazole 40 mg capsule,delayed 40 mg PO DAILY 11/27/22 03/16/25 History release lisinopril 40 mg tablet 40 mg PO DAILY 12/02/23 03/16/25 History amlodipine 10 mg tablet 10 mg PO QAM 03/09/25 03/16/25 History carbamazepine 200 mg tablet 200 mg PO BID 03/09/25 03/16/25 History (Tegretol) prazosin 1 mg capsule 1 mg PO HS 03/09/25 03/16/25 History Patient History Surgical History History of cholecystectomy Social History Smoking Status: Never smoker Second Hand Exposure: No; Do You Dip or Chew Tobacco: No; Hx Alcohol Use: No Hx Substance Use: No Preferred Language: Sri Lankan Communication Ability: Effective Binding [place] Required: No Beliefs That Will Affect Care: None Current Living Situation: Other Current Living Situation Comment: [facility] Feels Safe at Home: Yes Safety Concerns: Feels Safe At This Time Assistive Devices: None Review of Systems Review of Systems: All systems reviewed & are unremarkable except as noted in HPI & below Physical Exam Constitutional: WD/WN, vitals as above + ill appearing Eyes: + anicteric sclerae Neck: trachea midline, no thyromegaly Respiratory: normal respiratory effort, lungs clear to auscultation Cardiovascular: RRR, no murmur, no edema Gastrointestinal (Abdomen): Inspection/Auscultation: normal bowel sounds Percussion/Palpation: + abdomen tender (mostly on right side of abdomen) and + guarding Results & Data Vital Signs (Past 12 Hours) Vital Signs Temp Pulse Pulse Resp BP BP Pulse Ox 03/17/25 07:19 36.8 C 47 L 20 134/78 98 03/17/25 05:59 41 L 03/17/25 05:56 36.8 C 42 L 14 173/94 H 98 03/17/25 05:52 03/17/25 05:00 42 L 18 142/86 H 94 03/17/25 04:30 44 L 18 136/81 94 03/17/25 03:30 48 L 18 129/77 98 03/17/25 03:10 46 L 15 132/72 95 03/17/25 03:01 45 L 18 132/72 94 03/17/25 02:30 50 L 18 118/74 96 03/17/25 02:30 46 L 13 118/74 94 03/17/25 02:08 46 L 12 146/80 H 100 03/17/25 02:05 46 L 18 146/80 H 97 03/17/25 01:00 51 L 18 128/75 95 03/17/25 00:30 50 L 16 129/73 95 03/17/25 00:21 52 L 03/17/25 00:00 50 L 18 135/75 95 03/17/25 00:00 50 L 13 135/75 96 03/16/25 23:30 53 L 13 128/71 95 03/16/25 23:00 56 L 18 128/75 92 03/16/25 22:00 53 L 15 126/71 96 O2 Del Method 03/17/25 07:19 Room Air 03/17/25 05:59 03/17/25 05:56 Room Air 03/17/25 05:52 Room Air 03/17/25 05:00 03/17/25 04:30 03/17/25 03:30 03/17/25 03:10 Room Air 03/17/25 03:01 03/17/25 02:30 03/17/25 02:30 Room Air 03/17/25 02:08 Room Air 03/17/25 02:05 03/17/25 01:00 03/17/25 00:30 03/17/25 00:21 03/17/25 00:00 03/17/25 00:00 Room Air 03/16/25 23:30 03/16/25 23:00 03/16/25 22:00 Room Air Laboratory Results 03/17/25 03/17/25 03/17/25 Range/Units 07:30 04:29 02:06 WBC 4.89 (4.8-10.8) K/ul RBC 3.29 L (4.70-6.10) M/uL Hgb 10.9 L (14.0-18.0) g/dl Hct 32.3 L (42.0-52.0) % MCV 98.2 (80.0-100.0) fL MCH 33.1 (25.0-34.0) pg MCHC 33.7 (32.0-36.0) g/dL RDW Std Deviation 46.2 (36.4-46.3) fL RDW Coeff of Chivo 13.0 (11.5-14.5) % Plt Count 116 L (130-400) K/uL MPV 11.8 (9.4-12.4) fL Immature Gran % (Auto) % Neut % (Auto) % Lymph % (Auto) % [place] % (Auto) % Eos % (Auto) % Baso % (Auto) % Neut # (Auto) (1.40-6.50) K/uL Lymph # (Auto) (1.20-3.40) K/uL [place] # (Auto) (0.11-0.59) K/uL Eos # (Auto) (0.00-0.50) K/uL Baso # (Auto) (0.00-0.20) K/uL Immature Gran # (Auto) (0.01-0.20) K/uL Sodium 140 (136-145) mmol/L Potassium 3.5 (3.5-5.1) mmol/L Chloride 102 (98-107) mmol/L Carbon Dioxide 34 H (21-32) mmol/L Anion Gap 4 (3-11) BUN 26 H (6-23) mg/dl Creatinine 1.34 D (0.6-1.4) mg/dl Est Cr Clr Drug Dosing 54.9 ml/min eGFR 61.79 BUN/Creatinine Ratio 19.4 (10-20) Glucose 110 H (70-99(Fasting)) mg/dl Lactate 0.9 (0.4-2.0) mmol/L Calcium 8.7 (8.6-10.3) mg/dl Total Bilirubin 0.4 (0.2-1.0) mg/dl Direct Bilirubin 0.2 (0-0.2) mg/dl AST 17 (13-39) U/L ALT 24 (7-52) U/L Alkaline Phosphatase 96 (34-104) U/L Troponin I High Sens (0-20) pg/ml Total Protein 4.7 L D (6.0-8.3) gm/dl Albumin 3.3 L (3.4-5.0) gm/dl Globulin (2.5-4.0) gm/dl Albumin/Globulin Ratio (0.9-2) Lipase (11-82) U/L Urine Color Yellow Urine Appearance Clear (Clear) Urine pH 6.5 (4.5-7.5) Ur Specific [place] > 1.045 H (1.000-1.030) Urine Protein 1+ H (Negative) Urine Glucose (UA) Negative (Negative) Urine Ketones Trace H (Negative) Urine Blood Negative (Negative) Urine Nitrite Negative (Negative) Urine Bilirubin Negative (Negative) Urine Urobilinogen Positive H (Negative) Ur Leukocyte Esterase Negative (Negative) Urine WBC (Auto) 0-5 (0-5) /hpf Urine RBC (Auto) 0-2 (0-2) /hpf U Hyaline Cast (Auto) 0-2 (0-2) /lpf U Epithel Cells (Auto) 0-2 (0-2) /hpf Urine Bacteria (Auto) None Seen (None Seen) Urine Comment Nasal Screen MRSA (PCR) Negative (Negative) 03/16/25 03/16/25 03/16/25 Range/Units 22:35 20:44 20:20 WBC 7.62 (4.8-10.8) K/ul RBC 3.83 L (4.70-6.10) M/uL Hgb 12.9 L (14.0-18.0) g/dl Hct 37.1 L (42.0-52.0) % MCV 96.9 (80.0-100.0) fL MCH 33.7 (25.0-34.0) pg MCHC 34.8 (32.0-36.0) g/dL RDW Std Deviation 45.2 (36.4-46.3) fL RDW Coeff of Chivo 12.8 (11.5-14.5) % Plt Count 154 (130-400) K/uL MPV 12.2 (9.4-12.4) fL Immature Gran % (Auto) 0.8 % Neut % (Auto) 69.6 % Lymph % (Auto) 19.7 % [place] % (Auto) 8.8 % Eos % (Auto) 0.4 % Baso % (Auto) 0.7 % Neut # (Auto) 5.31 (1.40-6.50) K/uL Lymph # (Auto) 1.50 (1.20-3.40) K/uL [place] # (Auto) 0.67 H (0.11-0.59) K/uL Eos # (Auto) 0.03 (0.00-0.50) K/uL Baso # (Auto) 0.05 (0.00-0.20) K/uL Immature Gran # (Auto) 0.06 (0.01-0.20) K/uL Sodium 141 (136-145) mmol/L Potassium 3.8 (3.5-5.1) mmol/L Chloride 99 (98-107) mmol/L Carbon Dioxide 34 H (21-32) mmol/L Anion Gap 8 (3-11) BUN 27 H (6-23) mg/dl Creatinine 1.71 H (0.6-1.4) mg/dl Est Cr Clr Drug Dosing 43.0 ml/min eGFR 46.11 BUN/Creatinine Ratio 15.8 (10-20) Glucose 112 H (70-99(Fasting)) mg/dl Lactate 2.4 H* (0.4-2.0) mmol/L Calcium 9.8 (8.6-10.3) mg/dl Total Bilirubin 0.6 (0.2-1.0) mg/dl Direct Bilirubin (0-0.2) mg/dl AST 23 (13-39) U/L ALT 32 (7-52) U/L Alkaline Phosphatase 126 H (34-104) U/L Troponin I High Sens 30.0 H 30.4 H (0-20) pg/ml Total Protein 6.2 (6.0-8.3) gm/dl Albumin 3.9 (3.4-5.0) gm/dl Globulin 2.3 L (2.5-4.0) gm/dl Albumin/Globulin Ratio 1.7 (0.9-2) Lipase 99 H (11-82) U/L Urine Color Urine Appearance (Clear) Urine pH (4.5-7.5) Ur Specific [place] (1.000-1.030) Urine Protein (Negative) Urine Glucose (UA) (Negative) Urine Ketones (Negative) Urine Blood (Negative) Urine Nitrite (Negative) Urine Bilirubin (Negative) Urine Urobilinogen (Negative) Ur Leukocyte Esterase (Negative) Urine WBC (Auto) (0-5) /hpf Urine RBC (Auto) (0-2) /hpf U Hyaline Cast (Auto) (0-2) /lpf U Epithel Cells (Auto) (0-2) /hpf Urine Bacteria (Auto) (None Seen) Urine Comment Nasal Screen MRSA (PCR) (Negative) Diagnostic Findings Abdomen/Pelvis CT 03/16/25 21:15 Exam(s): CT ABDOMEN + PELVIS With Contrast IV Amt: OPTIRAY 320 93ML EXAM: CT Abdomen and Pelvis With Intravenous Contrast CLINICAL HISTORY: Reason for exam: SBO, DC -> recurrent?. TECHNIQUE: Axial computed tomography images of the abdomen and pelvis with intravenous contrast. CTDI is 13.47 mGy and DLP is 596.55 mGy-cm. Automated exposure control was utilized for the study. A dose lowering technique was utilized adhering to the principles of ALARA. CONTRAST: Patient received OPTIRAY 320 93ML of IV contrast COMPARISON: CT Abdomen Pelvis dated 03/09/25 FINDINGS: Lung bases: Unremarkable. No mass. No consolidation. ABDOMEN: Liver: Unremarkable. No mass. Gallbladder and bile ducts: Cholecystectomy. Pneumobilia, mildly decreased. No ductal dilation. Pancreas: Unremarkable. No mass. No ductal dilation. Spleen: Unremarkable. No splenomegaly. Adrenals: Stable 1.9 cm right adrenal nodule/adenoma. Kidneys and ureters: Unremarkable. No solid mass. No hydronephrosis. Stomach and bowel: Enteric contrast throughout the colon. No abnormally dilated loops/bowel obstruction. Stomach is distended with heterogeneous ingested contents. No mucosal thickening. Colonic diverticulosis. PELVIS: Appendix: No findings to suggest acute appendicitis. Normal appendix. Bladder: Unremarkable. No mass. Reproductive: Unremarkable as visualized. ABDOMEN and PELVIS: Intraperitoneal space: Unremarkable. No free air. No significant fluid collection. Bones/joints: No acute fracture. No dislocation. Soft tissues: Unremarkable. Vasculature: Unremarkable. No abdominal aortic aneurysm. Lymph nodes: Unremarkable. No enlarged lymph nodes. IMPRESSION: No acute findings in the abdomen or pelvis. Electronically signed by: Fritz Dixon M.D. 03/17/25 02:11 AM
--- NOTE | 2025-03-17 10:51 | Hospitalist Progress Note ---
Date of Service March 17, 2025 Assessment & Plan (1) Abdominal pain: Plan: -recent admission for SBO, resoloved and discharged yesterday -returning now with nausea -GI consult appreciated, no need for EGD at this time -pt has abdominal mesh, possible cause of symptoms -reconsulted surgery -CT a/p negative for SBO or any acute pathology -NPO -IVF (2) Nausea & vomiting: Plan: -zofran prn (3) Elevated lactic acid level: Plan: -resolved with IVF (4) Elevated troponin: (5) OLEKSANDR (acute kidney injury): Plan: -con't IVF (6) HTN (hypertension): Plan: -amlodipine (7) GERD (gastroesophageal reflux disease): Plan 59-year-old male with history of hypertension, hyperlipidemia and GERD, recent admission for small bowel obstruction returns with recurrence of abdominal pain, nausea, vomiting and p.o. intolerance. Patient is afebrile, hemodynamically stable in the ER. Labs do revealed a mildly elevated lactate at 2 point2.4 as well as mildly elevated lipase at 99. Also with mild elevation of BUN and creatinine to 27 and 1.71, respectively. Increased in comparison to discharge values Admission and Anticipated Discharge Date Admission Date: March 16, 2025 Subjective No events overnight. Pt still complaining of vague abdominal pain, nausea. Review of Systems Review of Systems: CONST: Negative for fever, body aches and chills. HENT: Negative for neck pain/stiffness, headache, congestion, sore throat, swelling. EYES: Negative for discharge/pain or vision changes. RESP: Negative for cough/hemoptysis and shortness of breath. CV: Negative chest pain, difficulty breathing, palpitations. ABD: Negative pain, nausea, vomiting. : Negative increase frequency, dysuria, blood in urine or stool. MUSC: Negative for muscle aches, edema. SKIN: Negative rash, lesions/sores. NEURO: Negative headache, dizziness, weakness. Physical Exam Physical Exam: GENERAL APPEARANCE NAD, activity normal for age, well developed/ well nourished, no cyanosis, pallor, or diaphoresis. EYES lids/conjunctiva normal. EARS/NOSE/THROAT Mucous membranes moist, nares normal, lips/teeth normal uvula midline without oral pharyngeal erythema, exudate or swelling TMs normal bilaterally. No lymphangitis/lymphedema. HEAD/NECK normocephalic atraumatic, no facial trauma, neck is supple. RESPIRATORY respiratory effort normal, speaks in full sentences, no tripod position, no accessory muscle use. Lungs clear to auscultation without rhonchi, wheezes, rales CARDIAC Regular rate and rhythm, no edema. ABDOMINAL Soft, ND/NT. No evidence of fluid wave. No pulsatile masses on exam, rebound tenderness, Leiva sign or pain over Mcburney's point. MUSCLES/EXTREMITIES No abnormal range of motion, no swelling. SKIN Warm, pink and dry. No rashes, dermatoses, petechiae or lesions. NEUROLOGICAL Speech is clear and appropriate. Normal level of consciousness. Gait and coordination are normal. 5/5 strength in all extremities. PSYCH Normal mood and affect. Judgement/competence is appropriate Results & Data Results & Data Vital Signs (Past 12 Hours) Vital Signs Temp Pulse Pulse Resp BP BP Pulse Ox 03/17/25 07:19 36.8 C 47 L 20 134/78 98 03/17/25 05:59 41 L 03/17/25 05:56 36.8 C 42 L 14 173/94 H 98 03/17/25 05:52 03/17/25 05:00 42 L 18 142/86 H 94 03/17/25 04:30 44 L 18 136/81 94 03/17/25 03:30 48 L 18 129/77 98 03/17/25 03:10 46 L 15 132/72 95 03/17/25 03:01 45 L 18 132/72 94 03/17/25 02:30 50 L 18 118/74 96 03/17/25 02:30 46 L 13 118/74 94 03/17/25 02:08 46 L 12 146/80 H 100 03/17/25 02:05 46 L 18 146/80 H 97 03/17/25 01:00 51 L 18 128/75 95 03/17/25 00:30 50 L 16 129/73 95 03/17/25 00:21 52 L 03/17/25 00:00 50 L 18 135/75 95 03/17/25 00:00 50 L 13 135/75 96 03/16/25 23:30 53 L 13 128/71 95 03/16/25 23:00 56 L 18 128/75 92 O2 Del Method 03/17/25 07:19 Room Air 03/17/25 05:59 03/17/25 05:56 Room Air 03/17/25 05:52 Room Air 03/17/25 05:00 03/17/25 04:30 03/17/25 03:30 03/17/25 03:10 Room Air 03/17/25 03:01 03/17/25 02:30 03/17/25 02:30 Room Air 03/17/25 02:08 Room Air 03/17/25 02:05 03/17/25 01:00 03/17/25 00:30 03/17/25 00:21 03/17/25 00:00 03/17/25 00:00 Room Air 03/16/25 23:30 03/16/25 23:00 PG Care Time/CCT Total # of Minutes Spent Total Time Spent with Patient: Total time spent is greater than 50% in coordination of care (as documented) at patient's floor/unit and/or counseling patient: Coding Level of Care Code 02974 SUB INP/OBS CARE 2/35MIN Diagnoses Abdominal pain R10.9 Nausea & vomiting R11.2 Elevated lactic acid level R79.89 Elevated troponin R79.89 OLEKSANDR (acute kidney injury) N17.9 HTN (hypertension) I10 GERD (gastroesophageal reflux disease) K21.9
--- NOTE | 2025-03-17 11:35 | Surgery Consultation ---
Date of Consultation March 17, 2025 Assessment & Plan (1) Abdominal pain: (2) Nausea & vomiting: Plan 59-year-old presents with recurrent abdominal pain, nausea and vomiting following recent admission for small bowel obstruction. CT scan does not demonstrate a recurrent small bowel obstruction. He does have a significant amount of enteric contents and stool in his colon. He may need a bowel regimen. Is possible that he is developing a recurrent small bowel obstruction that has not progressed to the point of being seen on CT scan. Will continue to follow. Keep NPO. History of Present Illness Reason for Consultation: Abdominal pain Requesting Physician: Rosy Rahman DO Attending Physician: Rosy Rahman DO History of Present Illness 59-year-old gentleman presents with abdominal pain, nausea and vomiting. He was recently hospitalized for small bowel obstruction. He was discharged but developed nausea and vomiting again.. He is feeling well but has right lower quadrant abdominal pain. White count is normal. CT scan demonstrates no acute abnormality. Allergies Allergy/AdvReac Type Severity Reaction Status Date / Time No Known Allergies Allergy Verified 03/09/25 16:51 Home Medications Medication Instructions Recorded Confirmed Type omeprazole 40 mg capsule,delayed 40 mg PO DAILY 11/27/22 03/16/25 History release lisinopril 40 mg tablet 40 mg PO DAILY 12/02/23 03/16/25 History amlodipine 10 mg tablet 10 mg PO QAM 03/09/25 03/16/25 History carbamazepine 200 mg tablet 200 mg PO BID 03/09/25 03/16/25 History (Tegretol) prazosin 1 mg capsule 1 mg PO HS 03/09/25 03/16/25 History Patient History Surgical History History of cholecystectomy Social History Smoking Status: Never smoker Second Hand Exposure: No; Do You Dip or Chew Tobacco: No; Hx Alcohol Use: No Hx Substance Use: No Preferred Language: Maltese Communication Ability: Effective Commercial Account Manager Required: No Beliefs That Will Affect Care: None Current Living Situation: Other Current Living Situation Comment: [facility] Feels Safe at Home: Yes Safety Concerns: Feels Safe At This Time Assistive Devices: None Review of Systems Review of Systems: All systems reviewed & are unremarkable except as noted in HPI & below Physical Exam Constitutional: WD/WN, vitals as above Eyes: PERRL, conjunctivae normal, anicteric sclerae Neck: trachea midline, no thyromegaly Respiratory: normal respiratory effort; no respiratory distress and no labored breathing Cardiovascular: Rate/Rhythm: regular rate and regular rhythm Gastrointestinal (Abdomen): Inspection/Auscultation: abdomen normal to inspection; abdomen not distended Percussion/Palpation: + abdomen tender ( Right side) and abdomen soft; no guarding and abdomen not rigid Skin: no rashes, warm and dry Psychiatric: A+Ox3, euthymic affect Results & Data Vital Signs (Past 12 Hours) Vital Signs Temp Pulse Pulse Resp BP BP BP 03/17/25 11:04 37.1 C 47 L 16 147/87 H 03/17/25 07:19 36.8 C 47 L 20 134/78 03/17/25 05:59 41 L 03/17/25 05:56 36.8 C 42 L 14 173/94 H 03/17/25 05:52 03/17/25 05:00 42 L 18 142/86 H 03/17/25 04:30 44 L 18 136/81 03/17/25 03:30 48 L 18 129/77 03/17/25 03:10 46 L 15 132/72 03/17/25 03:01 45 L 18 132/72 03/17/25 02:30 50 L 18 118/74 03/17/25 02:30 46 L 13 118/74 03/17/25 02:08 46 L 12 146/80 H 03/17/25 02:05 46 L 18 146/80 H 03/17/25 01:00 51 L 18 128/75 03/17/25 00:30 50 L 16 129/73 03/17/25 00:21 52 L 03/17/25 00:00 50 L 18 135/75 03/17/25 00:00 50 L 13 135/75 Pulse Ox O2 Del Method 03/17/25 11:04 97 Room Air 03/17/25 07:19 98 Room Air 03/17/25 05:59 03/17/25 05:56 98 Room Air 03/17/25 05:52 Room Air 03/17/25 05:00 94 03/17/25 04:30 94 03/17/25 03:30 98 03/17/25 03:10 95 Room Air 03/17/25 03:01 94 03/17/25 02:30 96 03/17/25 02:30 94 Room Air 03/17/25 02:08 100 Room Air 03/17/25 02:05 97 03/17/25 01:00 95 03/17/25 00:30 95 03/17/25 00:21 03/17/25 00:00 95 03/17/25 00:00 96 Room Air Laboratory Results 03/17/25 03/17/25 03/17/25 Range/Units 07:30 04:29 02:06 WBC 4.89 (4.8-10.8) K/ul RBC 3.29 L (4.70-6.10) M/uL Hgb 10.9 L (14.0-18.0) g/dl Hct 32.3 L (42.0-52.0) % MCV 98.2 (80.0-100.0) fL MCH 33.1 (25.0-34.0) pg MCHC 33.7 (32.0-36.0) g/dL RDW Std Deviation 46.2 (36.4-46.3) fL RDW Coeff of [place] 13.0 (11.5-14.5) % Plt Count 116 L (130-400) K/uL MPV 11.8 (9.4-12.4) fL Immature Gran % (Auto) % Neut % (Auto) % Lymph % (Auto) % [place] % (Auto) % Eos % (Auto) % Baso % (Auto) % Neut # (Auto) (1.40-6.50) K/uL Lymph # (Auto) (1.20-3.40) K/uL [place] # (Auto) (0.11-0.59) K/uL Eos # (Auto) (0.00-0.50) K/uL Baso # (Auto) (0.00-0.20) K/uL Immature Gran # (Auto) (0.01-0.20) K/uL Sodium 140 (136-145) mmol/L Potassium 3.5 (3.5-5.1) mmol/L Chloride 102 (98-107) mmol/L Carbon Dioxide 34 H (21-32) mmol/L Anion Gap 4 (3-11) BUN 26 H (6-23) mg/dl Creatinine 1.34 D (0.6-1.4) mg/dl Est Cr Clr Drug Dosing 54.9 ml/min eGFR 61.79 BUN/Creatinine Ratio 19.4 (10-20) Glucose 110 H (70-99(Fasting)) mg/dl Lactate 0.9 (0.4-2.0) mmol/L Calcium 8.7 (8.6-10.3) mg/dl Total Bilirubin 0.4 (0.2-1.0) mg/dl Direct Bilirubin 0.2 (0-0.2) mg/dl AST 17 (13-39) U/L ALT 24 (7-52) U/L Alkaline Phosphatase 96 (34-104) U/L Troponin I High Sens (0-20) pg/ml Total Protein 4.7 L D (6.0-8.3) gm/dl Albumin 3.3 L (3.4-5.0) gm/dl Globulin (2.5-4.0) gm/dl Albumin/Globulin Ratio (0.9-2) Lipase (11-82) U/L Urine Color Yellow Urine Appearance Clear (Clear) Urine pH 6.5 (4.5-7.5) Ur Specific [place] > 1.045 H (1.000-1.030) Urine Protein 1+ H (Negative) Urine Glucose (UA) Negative (Negative) Urine Ketones Trace H (Negative) Urine Blood Negative (Negative) Urine Nitrite Negative (Negative) Urine Bilirubin Negative (Negative) Urine Urobilinogen Positive H (Negative) Ur Leukocyte Esterase Negative (Negative) Urine WBC (Auto) 0-5 (0-5) /hpf Urine RBC (Auto) 0-2 (0-2) /hpf U Hyaline Cast (Auto) 0-2 (0-2) /lpf U Epithel Cells (Auto) 0-2 (0-2) /hpf Urine Bacteria (Auto) None Seen (None Seen) Urine Comment Nasal Screen MRSA (PCR) Negative (Negative) 03/16/25 03/16/25 03/16/25 Range/Units 22:35 20:44 20:20 WBC 7.62 (4.8-10.8) K/ul RBC 3.83 L (4.70-6.10) M/uL Hgb 12.9 L (14.0-18.0) g/dl Hct 37.1 L (42.0-52.0) % MCV 96.9 (80.0-100.0) fL MCH 33.7 (25.0-34.0) pg MCHC 34.8 (32.0-36.0) g/dL RDW Std Deviation 45.2 (36.4-46.3) fL RDW Coeff of [place] 12.8 (11.5-14.5) % Plt Count 154 (130-400) K/uL MPV 12.2 (9.4-12.4) fL Immature Gran % (Auto) 0.8 % Neut % (Auto) 69.6 % Lymph % (Auto) 19.7 % [place] % (Auto) 8.8 % Eos % (Auto) 0.4 % Baso % (Auto) 0.7 % Neut # (Auto) 5.31 (1.40-6.50) K/uL Lymph # (Auto) 1.50 (1.20-3.40) K/uL [place] # (Auto) 0.67 H (0.11-0.59) K/uL Eos # (Auto) 0.03 (0.00-0.50) K/uL Baso # (Auto) 0.05 (0.00-0.20) K/uL Immature Gran # (Auto) 0.06 (0.01-0.20) K/uL Sodium 141 (136-145) mmol/L Potassium 3.8 (3.5-5.1) mmol/L Chloride 99 (98-107) mmol/L Carbon Dioxide 34 H (21-32) mmol/L Anion Gap 8 (3-11) BUN 27 H (6-23) mg/dl Creatinine 1.71 H (0.6-1.4) mg/dl Est Cr Clr Drug Dosing 43.0 ml/min eGFR 46.11 BUN/Creatinine Ratio 15.8 (10-20) Glucose 112 H (70-99(Fasting)) mg/dl Lactate 2.4 H* (0.4-2.0) mmol/L Calcium 9.8 (8.6-10.3) mg/dl Total Bilirubin 0.6 (0.2-1.0) mg/dl Direct Bilirubin (0-0.2) mg/dl AST 23 (13-39) U/L ALT 32 (7-52) U/L Alkaline Phosphatase 126 H (34-104) U/L Troponin I High Sens 30.0 H 30.4 H (0-20) pg/ml Total Protein 6.2 (6.0-8.3) gm/dl Albumin 3.9 (3.4-5.0) gm/dl Globulin 2.3 L (2.5-4.0) gm/dl Albumin/Globulin Ratio 1.7 (0.9-2) Lipase 99 H (11-82) U/L Urine Color Urine Appearance (Clear) Urine pH (4.5-7.5) Ur Specific [place] (1.000-1.030) Urine Protein (Negative) Urine Glucose (UA) (Negative) Urine Ketones (Negative) Urine Blood (Negative) Urine Nitrite (Negative) Urine Bilirubin (Negative) Urine Urobilinogen (Negative) Ur Leukocyte Esterase (Negative) Urine WBC (Auto) (0-5) /hpf Urine RBC (Auto) (0-2) /hpf U Hyaline Cast (Auto) (0-2) /lpf U Epithel Cells (Auto) (0-2) /hpf Urine Bacteria (Auto) (None Seen) Urine Comment Nasal Screen MRSA (PCR) (Negative) Diagnostic Findings xam(s): CT ABDOMEN + PELVIS With Contrast IV Amt: OPTIRAY 320 93ML EXAM: CT Abdomen and Pelvis With Intravenous Contrast CLINICAL HISTORY: Reason for exam: SBO, DC -> recurrent?. TECHNIQUE: Axial computed tomography images of the abdomen and pelvis with intravenous contrast. CTDI is 13.47 mGy and DLP is 596.55 mGy-cm. Automated exposure control was utilized for the study. A dose lowering technique was utilized adhering to the principles of ALARA. CONTRAST: Patient received OPTIRAY 320 93ML of IV contrast COMPARISON: CT Abdomen Pelvis dated 03/09/25 FINDINGS: Lung bases: Unremarkable. No mass. No consolidation. ABDOMEN: Liver: Unremarkable. No mass. Gallbladder and bile ducts: Cholecystectomy. Pneumobilia, mildly decreased. No ductal dilation. Pancreas: Unremarkable. No mass. No ductal dilation. Spleen: Unremarkable. No splenomegaly. Adrenals: Stable 1.9 cm right adrenal nodule/adenoma. Kidneys and ureters: Unremarkable. No solid mass. No hydronephrosis. Stomach and bowel: Enteric contrast throughout the colon. No abnormally dilated loops/bowel obstruction. Stomach is distended with heterogeneous ingested contents. No mucosal thickening. Colonic diverticulosis. PELVIS: Appendix: No findings to suggest acute appendicitis. Normal appendix. Bladder: Unremarkable. No mass. Reproductive: Unremarkable as visualized. ABDOMEN and PELVIS: Intraperitoneal space: Unremarkable. No free air. No significant fluid collection. Bones/joints: No acute fracture. No dislocation. Soft tissues: Unremarkable. Vasculature: Unremarkable. No abdominal aortic aneurysm. Lymph nodes: Unremarkable. No enlarged lymph nodes. IMPRESSION: No acute findings in the abdomen or pelvis. Electronically signed by: Fritz Dixon M.D. 03/17/25 02:11 AM Dictated: 03/17/25210 Transcribed: 03/17/25210
--- NOTE | 2025-03-17 14:03 | Electrocardiogram Report ---
Test Reason : Blood Pressure : */* mmHG Vent. Rate : 51 BPM Atrial Rate : 51 BPM P-R Int : 208 ms QRS Dur : 108 ms QT Int : 498 ms P-R-T Axes : 32 -16 -16 degrees QTcB Int : 458 ms Sinus bradycardia Moderate voltage criteria for LVH, may be normal variant ( R in aVL ) Borderline ECG When compared with ECG of 09-Mar-2025 16:02, Criteria for Septal infarct are no longer Present Confirmed by Rosalio Bolden ([id number]) on 03/17/2025 2:02:49 PM Referred By: [facility] Confirmed By: Rosalio Bolden
[2025-03-18 06:22] LABS: Hemoglobin 11.6 g/dl (14.0-18.0); Mean Corpuscular Hemoglobin 33.5 pg (25.0-34.0); Mean Corpuscular Hgb Conc 34.1 g/dL (32.0-36.0); Mean Corpuscular Volume 98.3 fL (80.0-100.0); Mean Platelet Volume 11.7 fL (9.4-12.4); Platelet Count 128 K/uL (130-400); RDW Coefficient of Variation 13.1 % (11.5-14.5); RDW Standard Deviation 46.3 fL (36.4-46.3); Red Blood Count 3.46 M/uL (4.70-6.10); White Blood Count 3.78 K/ul (4.8-10.8)
[2025-03-18 07:04] LABS: BUN Creatinine Ratio 18.3 (10-20); Calcium 8.9 mg/dl (8.6-10.3); Creatinine Clr Calc Pharmacy 79.1 ml/min; Potassium 3.3 mmol/L (3.5-5.1)
--- NOTE | 2025-03-18 10:04 | Hospitalist Progress Note ---
Date of Service March 18, 2025 Assessment & Plan (1) Abdominal pain: Plan: -recent admission for SBO, resoloved and discharged yesterday -returning now with nausea -GI consult appreciated, no need for EGD at this time -pt has abdominal mesh, possible cause of symptoms -reconsulted surgery -CT a/p negative for SBO or any acute pathology -surgical consult appreciated -will advance to clear liquids today -monitor for symptoms (2) Nausea & vomiting: Plan: -zofran prn (3) Elevated lactic acid level: Plan: -resolved with IVF (4) Elevated troponin: (5) OLEKSANDR (acute kidney injury): Plan: -con't IVF (6) HTN (hypertension): Plan: -amlodipine (7) GERD (gastroesophageal reflux disease): Plan 59-year-old male with history of hypertension, hyperlipidemia and GERD, recent admission for small bowel obstruction returns with recurrence of abdominal pain, nausea, vomiting and p.o. intolerance. Patient is afebrile, hemodynamically stable in the ER. Labs do revealed a mildly elevated lactate at 2 point2.4 as well as mildly elevated lipase at 99. Also with mild elevation of BUN and creatinine to 27 and 1.71, respectively. Increased in comparison to discharge values Admission and Anticipated Discharge Date Admission Date: March 16, 2025 Subjective Pt denies any abdominal pain or nausea. He is requesting diet. Review of Systems Review of Systems: CONST: Negative for fever, body aches and chills. HENT: Negative for neck pain/stiffness, headache, congestion, sore throat, swelling. EYES: Negative for discharge/pain or vision changes. RESP: Negative for cough/hemoptysis and shortness of breath. CV: Negative chest pain, difficulty breathing, palpitations. ABD: Negative pain, nausea, vomiting. : Negative increase frequency, dysuria, blood in urine or stool. MUSC: Negative for muscle aches, edema. SKIN: Negative rash, lesions/sores. NEURO: Negative headache, dizziness, weakness. Physical Exam Physical Exam: GENERAL APPEARANCE NAD, activity normal for age, well developed/ well nourished, no cyanosis, pallor, or diaphoresis. EYES lids/conjunctiva normal. EARS/NOSE/THROAT Mucous membranes moist, nares normal, lips/teeth normal uvula midline without oral pharyngeal erythema, exu date or swelling TMs normal bilaterally. No lymphangitis/lymphedema. HEAD/NECK normocephalic atraumatic, no facial trauma, neck is supple. RESPIRATORY respiratory effort normal, speaks in full sentences, no tripod position, no accessory muscle use. Lungs clear to auscultation without rhonchi, wheezes, rales CARDIAC Regular rate and rhythm, no edema. ABDOMINAL Soft, ND/NT. No evidence of fluid wave. No pulsatile masses on exam, rebound tenderness, Leiva sign or pain over Mcburney's point. MUSCLES/EXTREMITIES No abnormal range of motion, no swelling. SKIN Warm, pink and dry. No rashes, dermatoses, petechiae or lesions. NEUROLOGICAL Speech is clear and appropriate. Normal level of consciousness. Gait and coordination are normal. 5/5 strength in all extremities. PSYCH Normal mood and affect. Judgement/competence is appropriate Results & Data Results & Data Vital Signs (Past 12 Hours) Vital Signs Temp Pulse Pulse Pulse Resp BP BP 03/18/25 07:38 36.6 C 50 L 18 147/77 H 03/18/25 07:21 47 L 03/18/25 06:06 37.5 C 44 L 18 152/79 H 03/18/25 04:11 36.4 C L 42 L 16 114/67 03/18/25 01:04 46 L 03/18/25 00:21 36.4 C L 55 L 17 127/73 03/17/25 22:22 Pulse Ox O2 Del Method 03/18/25 07:38 98 Room Air 03/18/25 07:21 03/18/25 06:06 98 Room Air 03/18/25 04:11 95 Room Air 03/18/25 01:04 03/18/25 00:21 96 Room Air 03/17/25 22:22 Room Air PG Care Time/CCT Total # of Minutes Spent Total Time Spent with Patient: Total time spent is greater than 50% in coordination of care (as documented) at patient's floor/unit and/or counseling patient: Coding Level of Care Code 35185 SUB INP/OBS CARE 2/35MIN Diagnoses Abdominal pain R10.84 Abdominal location: generalized Nausea & vomiting R11.14 Vomiting type: bilious vomiting Elevated lactic acid level R79.89 Elevated troponin R79.89 OLEKSANDR (acute kidney injury) N17.9 HTN (hypertension) I10 GERD (gastroesophageal reflux disease) K21.9 (1) Abdominal pain Abdominal location: generalized Qualified Code(s): R10.84 - Generalized abdominal pain (2) Nausea & vomiting Vomiting type: bilious vomiting Qualified Code(s): R11.14 - Bilious vomiting
--- NOTE | 2025-03-18 11:22 | Surgery Progress Note ---
Date of Service March 18, 2025 Assessment & Plan (1) Abdominal pain: Plan: Patient here last week with concern for SBO, resolved, now returned with abd pain/nausea/vomiting Vitals stable, K 3.3 repletion ordered by medicine CT scan on admission revealed no concerns for SBO This AM he is feeling a little better, pain is intermittent. He denies n/v. He is passing some gas Reports pain primarily over the right sided abdomen, site of previous open hernia repair (10/2022) by Dr Mccarty There is question if the mesh is causing intermittent trapping of the bowel causing his symptoms Will review CT scan images with the surgeon, there are no plans for any urgent surgical intervention at this time He did undergo a small bowel follow through last week that showed contrast reaching the colon after 30 mins For now we can start patient on clears and see how he fairs Admission and Anticipated Discharge Date Admission Date: March 16, 2025 Supervising Physician Co-Signing Physician Notes Patient seen examined, labs imaging reviewed, agree with above. History of multiple abdominal surgeries with recent admission for small bowel obstruction which resolved without intervention, readmitted for nausea and abdominal pain. CT did not show any evidence of bowel obstruction at the time of this admission. He currently is feeling better, tolerating clear liquids, passing gas. Minimal abdominal discomfort. On exam he is afebrile with stable vitals, his abdomen is soft, nondistended, nontender. Labs unremarkable. Admission CT personally viewed interpreted agree with the assessment with no obvious bowel obstruction. There is contrast in his colon from his small bowel follow-through which I would have expected with past at this point, may be dealing with a slow GI transit type of issue. Also he does have a significant mount of material in the stomach, again indicating a possible delayed gastric emptying or other GI transit issue. Patient specifically asked about an upper endoscopy. No surgical intervention indicated at this time. May advance his diet as tolerated. If further symptoms may need repeat scan with oral and IV contrast. Consider upper endoscopy as GI sees fit. Subjective Patient feeling a little better today. Denies nausea/vomiting. Having some ongoing intermittent abdominal pain, primarily over R upper abdomen. Passing gas. Last BM was yesterday Physical Exam Physical Exam: awake/alert, no distress Gastrointestinal (Abdomen): Inspection/Auscultation: abdomen not distended Percussion/Palpation: + abdomen tender (discomfort to palpation in the Right upper abdomen) and abdomen soft Results & Data Vital Signs (Past 12 Hours) Vital Signs Temp Pulse Pulse Pulse Resp BP BP 03/18/25 10:45 97.7 F 45 L 16 143/80 H 03/18/25 07:38 97.9 F 50 L 18 147/77 H 03/18/25 07:21 47 L 03/18/25 06:06 99.5 F 44 L 18 152/79 H 03/18/25 04:11 97.5 F L 42 L 16 114/67 03/18/25 01:04 46 L 03/18/25 00:21 97.5 F L 55 L 17 127/73 Pulse Ox O2 Del Method 03/18/25 10:45 99 Room Air 03/18/25 07:38 98 Room Air 03/18/25 07:21 03/18/25 06:06 98 Room Air 03/18/25 04:11 95 Room Air 03/18/25 01:04 03/18/25 00:21 96 Room Air PG Care Time/CCT Total # of Minutes Spent Total Time Spent with Patient: Total time spent is greater than 50% in coordination of care (as documented) at patient's floor/unit and/or counseling patient: Coding Level of Care Code 72481 SUB INP/OBS CARE 11/24MIN Diagnoses Abdominal pain R10.84 Abdominal location: generalized (1) Abdominal pain Abdominal location: generalized Qualified Code(s): R10.84 - Generalized a bdominal pain
--- NOTE | 2025-03-18 14:29 | Gastroenterology Progress Note ---
Date of Service March 18, 2025 Assessment & Plan (1) Nausea & vomiting: Plan: He is improved at this point yet he won't admit it to me. Will see how he does over the next day or so to decide about EGD. Admission and Anticipated Discharge Date Admission Date: March 16, 2025 Subjective No abdominal pain. No vomiting but states he doesn't feel better. "Knows his stomach isn't normal" Physical Exam Constitutional: + ill appearing Results & Data Vital Signs (Past 12 Hours) Vital Signs Temp Pulse Pulse Pulse Resp BP Pulse Ox 03/18/25 10:45 36.5 C 45 L 16 143/80 H 99 03/18/25 07:38 36.6 C 50 L 18 147/77 H 98 03/18/25 07:21 47 L 03/18/25 06:06 37.5 C 44 L 18 152/79 H 98 03/18/25 04:11 36.4 C L 42 L 16 114/67 95 O2 Del Method 03/18/25 10:45 Room Air 03/18/25 07:38 Room Air 03/18/25 07:21 03/18/25 06:06 Room Air 03/18/25 04:11 Room Air (1) Nausea & vomiting Vomiting type: bilious vomiting Qualified Code(s): R11.14 - Bilious vomiting
[2025-03-19 06:45] LABS: Hematocrit (blood only) 36.5 % (42.0-52.0); Hemoglobin 12.5 g/dl (14.0-18.0); Mean Corpuscular Hemoglobin 33.2 pg (25.0-34.0); Mean Corpuscular Hgb Conc 34.2 g/dL (32.0-36.0); Mean Corpuscular Volume 97.1 fL (80.0-100.0); Mean Platelet Volume 11.6 fL (9.4-12.4); Platelet Count 148 K/uL (130-400); Red Blood Count 3.76 M/uL (4.70-6.10); White Blood Count 4.55 K/ul (4.8-10.8)
[2025-03-19 07:10] LABS: BUN Creatinine Ratio 14.5 (10-20); Calcium 9.2 mg/dl (8.6-10.3); Creatinine Clr Calc Pharmacy 62.9 ml/min; Potassium 3.8 mmol/L (3.5-5.1)
--- NOTE | 2025-03-19 08:45 | Surgery Progress Note ---
Date of Service March 19, 2025 Assessment & Plan (1) Nausea & vomiting: Plan: Patient here with abdominal pain, nausea/vomiting CT scan without evidence of SBO on admission He is passing gas. Tolerating clears without nausea/vomiting or worsening abdominal pain He is requesting regular food, will order and trial GI contemplating EGD (2) Abdominal pain: Admission and Anticipated Discharge Date Admission Date: March 16, 2025 Supervising Physician Co-Signing Physician Notes Patient seen examined, labs imaging reviewed, agree with above. History of multiple abdominal surgeries with recent admission for small bowel obstruction which resolved without intervention, readmitted for nausea and abdominal pain. He is currently tolerating a diet, passing flatus but no bowel movement yet. His symptoms have mostly resolved. He still has a little soreness in his right upper quadrant. Afebrile stable vitals. Abdomen soft, minimally tender to palpation in the right upper quadrant near his old hernia site, no hernia recurrence. Surgery will sign off, call with questions or concerns. Upper endoscopy if deemed necessary by GI Subjective Patient feeling okay. Pain remains and is come & go, stable from prior, no better or worse. Denies nausea/vomiting. Tolerating clears. Passing gas. Physical Exam Physical Exam: awake/alert, no distress Gastrointestinal (Abdomen): Inspection/Auscultation: abdomen not distended Percussion/Palpation: + abdomen tender (reports some mild discomfort to R and mid abdomen) and abdomen soft Results & Data Vital Signs (Past 12 Hours) Vital Signs Temp Pulse Pulse Resp BP Pulse Ox O2 Del Method 03/19/25 08:09 97.7 F 46 L 18 128/76 98 Room Air 03/19/25 07:03 41 L 03/19/25 03:40 97.9 F 49 L 20 107/63 97 Room Air 03/19/25 01:02 97.9 F 51 L 18 115/76 98 Room Air 03/19/25 00:11 48 L PG Care Time/CCT Total # of Minutes Spent Total Time Spent with Patient: Total time spent is greater than 50% in coordination of care (as documented) at patient's floor/unit and/or counseling patient: Coding Level of Care Code 55172 SUB INP/OBS CARE 25MIN Diagnoses Nausea & vomiting R11.14 Vomiting type: bilious vomiting Abdominal pain R10.84 Abdominal location: generalized (1) Nausea & vomiting Vomiting type: bilious vomiting Qualified Code(s): R11.14 - Bilious vomiting (2) Abdominal pain Abdominal location: generalized Qualified Code(s): R10.84 - Generalized abdominal pain
--- NOTE | 2025-03-19 10:07 | Hospitalist Progress Note ---
Date of Service March 19, 2025 Assessment & Plan (1) Abdominal pain: Plan: -recent admission for SBO, resoloved and discharged yesterday -returning now with nausea -GI consult appreciated, no need for EGD at this time -pt has abdominal mesh, possible cause of symptoms -reconsulted surgery -CT a/p negative for SBO or any acute pathology -surgical consult appreciated -pt tolerating clears, surgery advanced to regular -monitor for symptoms -GI considering possible EGD (2) Nausea & vomiting: Plan: -zofran prn (3) Elevated lactic acid level: Plan: -resolved with IVF (4) Elevated troponin: (5) OLEKSANDR (acute kidney injury): Plan: -con't IVF (6) HTN (hypertension): Plan: -amlodipine (7) GERD (gastroesophageal reflux disease): Plan 59-year-old male with history of hypertension, hyperlipidemia and GERD, recent admission for small bowel obstruction returns with recurrence of abdominal pain, nausea, vomiting and p.o. intolerance. Patient is afebrile, hemodynamically stable in the ER. Labs do revealed a mildly elevated lactate at 2 point2.4 as well as mildly elevated lipase at 99. Also with mild elevation of BUN and creatinine to 27 and 1.71, respectively. Increased in comparison to discharge values Admission and Anticipated Discharge Date Admission Date: March 16, 2025 Subjective Pt tolerating regular clear liquid diet, no nausea or abdominal pain. Review of Systems Review of Systems: CONST: Negative for fever, body aches and chills. HENT: Negative for neck pain/stiffness, headache, congestion, sore throat, swelling. EYES: Negative for discharge/pain or vision changes. RESP: Negative for cough/hemoptysis and shortness of breath. CV: Negative chest pain, difficulty breathing, palpitations. ABD: Negative pain, nausea, vomiting. : Negative increase frequency, dysuria, blood in urine or stool. MUSC: Negative for muscle aches, edema. SKIN: Negative rash, lesions/sores. NEURO: Negative headache, dizziness, weakness. Physical Exam Physical Exam: GENERAL APPEARANCE NAD, activity normal for age, well developed/ well nourished, no cyanosis, pallor, or diaphoresis. EYES lids/conjunctiva normal. EARS/NOSE/THROAT Mucous membranes moist, nares normal, lips/teeth normal uvula midline without oral pharyngeal erythema, exudate or swelling TMs normal bilaterally. No lymphangitis/lymphedema. HEAD/NECK normocephalic atraumatic, no facial trauma, neck is supple. RESPIRATORY respiratory effort normal, speaks in full sentences, no tripod position, no accessory muscle use. Lungs clear to auscultation without rhonchi, wheezes, rales CARDIAC Regular rate and rhythm, no edema. ABDOMINAL Soft, ND/NT. No evidence of fluid wave. No pulsatile masses on exam, rebound tenderness, Leiva sign or pain over Mcburney's point. MUSCLES/EXTREMITIES No abnormal range of motion, no swelling. SKIN Warm, pink and dry. No rashes, dermatoses, petechiae or lesions. NEUROLOGICAL Speech is clear and appropriate. Normal level of consciousness. Gait and coordination are normal. 5/5 strength in all extremities. PSYCH Normal mood and affect. Judgement/competence is appropriate Results & Data Results & Data Vital Signs (Past 12 Hours) Vital Signs Temp Pulse Pulse Resp BP Pulse Ox O2 Del Method 03/19/25 08:09 36.5 C 46 L 18 128/76 98 Room Air 03/19/25 07:03 41 L 03/19/25 03:40 36.6 C 49 L 20 107/63 97 Room Air 03/19/25 01:02 36.6 C 51 L 18 115/76 98 Room Air 03/19/25 00:11 48 L PG Care Time/CCT Total # of Minutes Spent Total Time Spent with Patient: Total time spent is greater than 50% in coordination of care (as documented) at patient's floor/unit and/or counseling patient: Coding Level of Care Code 94202 SUB INP/OBS CARE 2/35MIN Diagnoses Abdominal pain R10.84 Abdominal location: generalized Nausea & vomiting R11.14 Vomiting type: bilious vomiting Elevated lactic acid level R79.89 Elevated troponin R79.89 OLEKSANDR (acute kidney injury) N17.9 HTN (hypertension) I10 GERD (gastroesophageal reflux disease) K21.9 (1) Abdominal pain Abdominal location: generalized Qualified Code(s): R10.84 - Generalized abdominal pain (2) Nausea & vomiting Vomiting type: bilious vomiting Qualified Code(s): R11.14 - Bilious vomiting
--- NOTE | 2025-03-19 12:46 | Gastroenterology Progress Note ---
Date of Service March 19, 2025 Assessment & Plan (1) Abdominal pain: Plan: He seems to be back to normal. Will give mag citrate tonight to see if that helps with his "discomfort". If no better then will proceed with EGD Admission and Anticipated Discharge Date Admission Date: March 16, 2025 Subjective eating lunch without any issues. Says his stomach is still "uneasy". Hasn't had a bowel movement since the day of admit Physical Exam Physical Exam: Looks well Constitutional: WD/WN, vitals as above Results & Data Vital Signs (Past 12 Hours) Vital Signs Temp Pulse Pulse Resp BP Pulse Ox O2 Del Method 03/19/25 11:28 36.6 C 54 L 18 129/79 98 Room Air 03/19/25 08:09 36.5 C 46 L 18 128/76 98 Room Air 03/19/25 07:03 41 L 03/19/25 03:40 36.6 C 49 L 20 107/63 97 Room Air 03/19/25 01:02 36.6 C 51 L 18 115/76 98 Room Air (1) Abdominal pain Abdominal location: generalized Qualified Code(s): R10.84 - Generalized abdominal pain
[2025-03-20 06:35] LABS: Hematocrit (blood only) 35.2 % (42.0-52.0); Hemoglobin 12.2 g/dl (14.0-18.0); Mean Corpuscular Hemoglobin 33.6 pg (25.0-34.0); Mean Corpuscular Hgb Conc 34.7 g/dL (32.0-36.0); Mean Platelet Volume 11.3 fL (9.4-12.4); Platelet Count 147 K/uL (130-400); RDW Coefficient of Variation 13.1 % (11.5-14.5); RDW Standard Deviation 46.4 fL (36.4-46.3); Red Blood Count 3.63 M/uL (4.70-6.10); White Blood Count 3.72 K/ul (4.8-10.8)
[2025-03-20 07:05] LABS: BUN Creatinine Ratio 15.9 (10-20); Calcium 8.8 mg/dl (8.6-10.3); Creatinine Clr Calc Pharmacy 65.1 ml/min; Potassium 3.7 mmol/L (3.5-5.1)
--- NOTE | 2025-03-20 09:24 | Hospitalist Progress Note ---
Date of Service March 20, 2025 Assessment & Plan (1) Abdominal pain: Plan: -recent admission for SBO, resoloved and discharged yesterday -returning now with nausea -GI consult appreciated, no need for EGD at this time -pt has abdominal mesh, possible cause of symptoms -reconsulted surgery -CT a/p negative for SBO or any acute pathology -surgical consult appreciated -pt tolerating regular diet -was given magnesium citrate, no BM, no N/V -GI considering possible EGD (2) Nausea & vomiting: Plan: -zofran prn (3) Elevated lactic acid level: Plan: -resolved with IVF (4) Elevated troponin: (5) OLEKSANDR (acute kidney injury): Plan: -con't IVF (6) HTN (hypertension): Plan: -amlodipine (7) GERD (gastroesophageal reflux disease): Plan 59-year-old male with history of hypertension, hyperlipidemia and GERD, recent admission for small bowel obstruction returns with recurrence of abdominal pain, nausea, vomiting and p.o. intolerance. Patient is afebrile, hemodynamically stable in the ER. Labs do revealed a mildly elevated lactate at 2 point2.4 as well as mildly elevated lipase at 99. Also with mild elevation of BUN and creatinine to 27 and 1.71, respectively. Increased in comparison to discharge values Admission and Anticipated Discharge Date Admission Date: March 16, 2025 Subjective Pt tolerating regular diet, states he has not had a BM despite taking magnesium citrate last night. Review of Systems Review of Systems: CONST: Negative for fever, body aches and chills. HENT: Negative for neck pain/stiffness, headache, congestion, sore throat, swelling. EYES: Negative for discharge/pain or vision changes. RESP: Negative for cough/hemoptysis and shortness of breath. CV: Negative chest pain, difficulty breathing, palpitations. ABD: Negative pain, nausea, vomiting. : Negative increase frequency, dysuria, blood in urine or stool. MUSC: Negative for muscle aches, edema. SKIN: Negative rash, lesions/sores. NEURO: Negative headache, dizziness, weakness. Physical Exam Physical Exam: GENERAL APPEARANCE NAD, activity normal for age, well developed/ well nourished, no cyanosis, pallor, or diaphoresis. EYES lids/conjunctiva normal. EARS/NOSE/THROAT Mucous membranes moist, nares normal, lips/teeth normal uvula midline without oral pharyngeal erythema, exudate or swelling TMs normal bilaterally. No lymphangitis/lymphedema. HEAD/NECK normocephalic atraumatic, no facial trauma, neck is supple. RESPIRATORY respiratory effort normal, speaks in full sentences, no tripod position, no accessory muscle use. Lungs clear to auscultation without rhonchi, wheezes, rales CARDIAC Regular rate and rhythm, no edema. ABDOMINAL Soft, ND/NT. No evidence of fluid wave. No pulsatile masses on exam, rebound tenderness, Leiva sign or pain over Mcburney's point. MUSCLES/EXTREMITIES No abnormal range of motion, no swelling. SKIN Warm, pink and dry. No rashes, dermatoses, petechiae or lesions. NEUROLOGICAL Speech is clear and appropriate. Normal level of consciousness. Gait and coordination are normal. 5/5 strength in all extremities. PSYCH Normal mood and affect. Judgement/competence is appropriate Results & Data Results & Data Vital Signs (Past 12 Hours) Vital Signs Temp Pulse Pulse Resp BP Pulse Ox O2 Del Method 03/20/25 07:32 36.3 C L 52 L 16 143/91 H 97 Room Air 03/20/25 03:42 36.6 C 54 L 18 119/69 98 Room Air 03/19/25 23:54 36.2 C L 52 L 18 123/67 97 Room Air 03/19/25 22:16 56 L PG Care Time/CCT Total # of Minutes Spent Total Time Spent with Patient: Total time spent is greater than 50% in coordination of care (as documented) at patient's floor/unit and/or counseling patient: Coding Level of Care Code 99809 SUB INP/OBS CARE 2/35MIN Diagnoses Abdominal pain R10.84 Abdominal location: generalized Nausea & vomiting R11.14 Vomiting type: bilious vomiting Elevated lactic acid level R79.89 Elevated troponin R79.89 OLEKSANDR (acute kidney injury) N17.9 HTN (hypertension) I10 GERD (gastroesophageal reflux disease) K21.9 (1) Abdominal pain Abdominal location: generalized Qualified Code(s): R10.84 - Generalized abdominal pain (2) Nausea & vomiting Vomiting type: bilious vomiting Qualified Code(s): R11.14 - Bilious vomiting
--- NOTE | 2025-03-20 13:05 | Gastroenterology Progress Note ---
Date of Service March 20, 2025 Assessment & Plan (1) Abdominal pain: Plan: Stomach no longer an issue. No vomiting with laxative. Does not want to take more laxative today--wants to give it some time and see how things are tomorrow. Would be better if he could get up and move around but that isn't really allowed by guards. Don't think he needs EGD. Will give colon prep tomorrow if unable to have a bowel movement Admission and Anticipated Discharge Date Admission Date: March 16, 2025 Subjective No results from mag citrate. Feels the need to go to the bathroom but usually only urinates Physical Exam Physical Exam: He looks well Constitutional: WD/WN, vitals as above Results & Data Vital Signs (Past 12 Hours) Vital Signs Temp Pulse Resp BP Pulse Ox O2 Del Method 03/20/25 11:23 36.3 C L 59 L 16 144/81 H 96 Room Air 03/20/25 07:32 36.3 C L 52 L 16 143/91 H 97 Room Air 03/20/25 03:42 36.6 C 54 L 18 119/69 98 Room Air (1) Abdominal pain Abdominal location: generalized Qualified Code(s): R10.84 - Generalized abdominal pain
[2025-03-21 07:01] LABS: Hematocrit (blood only) 37.7 % (42.0-52.0); Mean Corpuscular Hemoglobin 33.2 pg (25.0-34.0); Mean Corpuscular Hgb Conc 34.5 g/dL (32.0-36.0); Mean Corpuscular Volume 96.4 fL (80.0-100.0); Mean Platelet Volume 11.2 fL (9.4-12.4); Platelet Count 158 K/uL (130-400); RDW Coefficient of Variation 13.2 % (11.5-14.5); RDW Standard Deviation 46.5 fL (36.4-46.3); Red Blood Count 3.91 M/uL (4.70-6.10); White Blood Count 3.88 K/ul (4.8-10.8)
[2025-03-21 07:47] LABS: Calcium 9.2 mg/dl (8.6-10.3); Creatinine Clr Calc Pharmacy 64.8 ml/min; Potassium 3.9 mmol/L (3.5-5.1)
--- NOTE | 2025-03-21 09:32 | Hospitalist Progress Note ---
Date of Service March 21, 2025 Assessment & Plan (1) Abdominal pain: Plan: -recent admission for SBO, resoloved and discharged yesterday -returning now with nausea -GI consult appreciated, no need for EGD at this time -pt has abdominal mesh, possible cause of symptoms -reconsulted surgery -CT a/p negative for SBO or any acute pathology -was given magnesium citrate -Pt had BM this am -diet advanced to regular -GI follow up today 03/21 (2) Nausea & vomiting: Plan: -zofran prn (3) Elevated lactic acid level: Plan: -resolved with IVF (4) Elevated troponin: (5) OLEKSANDR (acute kidney injury): Plan: -con't IVF (6) HTN (hypertension): Plan: -amlodipine (7) GERD (gastroesophageal reflux disease): Plan 59-year-old male with history of hypertension, hyperlipidemia and GERD, recent admission for small bowel obstruction returns with recurrence of abdominal pain, nausea, vomiting and p.o. intolerance. Patient is afebrile, hemodynamically stable in the ER. Labs do revealed a mildly elevated lactate at 2 point2.4 as well as mildly elevated lipase at 99. Also with mild elevation of BUN and creatinine to 27 and 1.71, respectively. Increased in comparison to discharge values Admission and Anticipated Discharge Date Admission Date: March 16, 2025 Subjective Pt did have BM this am, tolerating diet. Asking to be advanced to regular. Still complaining of abdominal tenderness. Review of Systems Review of Systems: CONST: Negative for fever, body aches and chills. HENT: Negative for neck pain/stiffness, headache, congestion, sore throat, swelling. EYES: Negative for discharge/pain or vision changes. RESP: Negative for cough/hemoptysis and shortness of breath. CV: Negative chest pain, difficulty breathing, palpitations. ABD: Negative pain, nausea, vomiting. : Negative increase frequency, dysuria, blood in urine or stool. MUSC: Negative for muscle aches, edema. SKIN: Negative rash, lesions/sores. NEURO: Negative headache, dizziness, weakness. Physical Exam Physical Exam: GENERAL APPEARANCE NAD, activity normal for age, well developed/ well nourished, no cyanosis, pallor, or diaphoresis. EYES lids/conjunctiva normal. EARS/NOSE/THROAT Mucous membranes moist, nares normal, lips/teeth normal uvula midline without oral pharyngeal erythema, exudate or swelling TMs normal bilaterally. No lymphangitis/lymphedema. HEAD/NECK normocephalic atraumatic, no facial trauma, neck is supple. RESPIRATORY respiratory effort normal, speaks in full sentences, no tripod position, no accessory muscle use. Lungs clear to auscultation without rhonchi, wheezes, rales CARDIAC Regular rate and rhythm, no edema. ABDOMINAL Soft, ND/NT. No evidence of fluid wave. No pulsatile masses on exam, rebound tenderness, Leiva sign or pain over Mcburney's point. MUSCLES/EXTREMITIES No abnormal range of motion, no swelling. SKIN Warm, pink and dry. No rashes, dermatoses, petechiae or lesions. NEUROLOGICAL Speech is clear and appropriate. Normal level of consciousness. Gait and coordination are normal. 5/5 strength in all extremities. PSYCH Normal mood and affect. Judgement/competence is appropriate Results & Data Results & Data Vital Signs (Past 12 Hours) Vital Signs Temp Pulse Pulse Resp BP BP Pulse Ox 03/21/25 08:41 03/21/25 08:01 36.5 C 59 L 18 137/80 98 03/21/25 07:00 65 03/21/25 03:31 36.4 C L 49 L 18 144/79 H 98 03/21/25 00:07 36.4 C L 55 L 20 133/73 97 03/20/25 22:04 58 L O2 Del Method 03/21/25 08:41 Room Air 03/21/25 08:01 Room Air 03/21/25 07:00 03/21/25 03:31 Room Air 03/21/25 00:07 Room Air 03/20/25 22:04 PG Care Time/CCT Total # of Minutes Spent Total Time Spent with Patient: Total time spent is greater than 50% in coordination of care (as documented) at patient's floor/unit and/or counseling patient: Coding Level of Care Code 52743 SUB INP/OBS CARE 2/35MIN Diagnoses Abdominal pain R10.84 Abdominal location: generalized Nausea & vomiting R11.14 Vomiting type: bilious vomiting Elevated lactic acid level R79.89 Elevated troponin R79.89 OLEKSANDR (acute kidney injury) N17.9 HTN (hypertension) I10 GERD (gastroesophageal reflux disease) K21.9 (1) Abdominal pain Abdominal location: generalized Qualified Code(s): R10.84 - Generalized abdominal pain (2) Nausea & vomiting Vomiting type: bilious vomiting Qualified Code(s): R11.14 - Bilious vomiting
--- NOTE | 2025-03-21 12:25 | Gastroenterology Progress Note ---
Date of Service March 21, 2025 Assessment & Plan (1) Abdominal pain, epigastric: Plan: He is doing well. I think he is ready for discharge and would send him out on daily miralax. Admission and Anticipated Discharge Date Admission Date: March 16, 2025 Subjective Feeling "better". Had bowel movement. No pain. No vomiting. Tolerating diet. But "doesn't feel that good" Physical Exam Physical Exam: He looks well Constitutional: WD/WN, vitals as above Results & Data Vital Signs (Past 12 Hours) Vital Signs Temp Pulse Pulse Resp BP BP Pulse Ox 03/21/25 11:04 36.5 C 66 20 127/77 99 03/21/25 08:41 03/21/25 08:01 36.5 C 59 L 18 137/80 98 03/21/25 07:00 65 03/21/25 03:31 36.4 C L 49 L 18 144/79 H 98 O2 Del Method 03/21/25 11:04 Room Air 03/21/25 08:41 Room Air 03/21/25 08:01 Room Air 03/21/25 07:00 03/21/25 03:31 Room Air
[2025-03-22 00:06] VITALS: O2SAT 97
[2025-03-22 08:21] VITALS: BP 127/76; RESP 20; TEMP 97.9
[2025-03-22 10:04] VITALS: PULSE 63
--- NOTE | 2025-03-22 10:27 | Discharge Summary ---
Discharge Summary Date of Service March 22, 2025 Principal Dx & Hospital Course #1 = Principal Diagnosis (1) Abdominal pain: -recent admission for SBO, resoloved and discharged yesterday -returning now with nausea -GI consult appreciated, no need for EGD at this time -pt has abdominal mesh, possible cause of symptoms -reconsulted surgery -CT a/p negative for SBO or any acute pathology -was given magnesium citrate -Pt had BM this am -diet advanced to regular -GI follow up today 03/21, pt ok to discharge on mirlax (2) Nausea & vomiting: -zofran prn (3) Elevated lactic acid level: -resolved with IVF (4) Elevated troponin: (5) OLEKSANDR (acute kidney injury): -con't IVF (6) HTN (hypertension): -amlodipine (7) GERD (gastroesophageal reflux disease): Plan 59-year-old male with history of hypertension, hyperlipidemia and GERD, recent admission for small bowel obstruction returns with recurrence of abdominal pain, nausea, vomiting and p.o. intolerance. Patient is afebrile, hemodynamically stable in the ER. Labs do revealed a mildly elevated lactate at 2 point2.4 as well as mildly elevated lipase at 99. Also with mild elevation of BUN and creatinine to 27 and 1.71, respectively. Increased in comparison to discharge values Admission HPI Per Admitting Provider Eladio Palomino is a 59-year-old male with history of hernia repair with mesh in place as well as cholecystectomy presenting with abdominal pain. Patient was recently admitted from March 09 through March 16 with small bowel obstruction. He was managed with an NG tube, pain management and antiemetics. Patient had a small bowel follow-through performed on March 13 which showed no evidence of bowel obstruction. He improved clinically during his stay. Diet was advanced and he was having bowel movements. patient was [facility] earlier today and was overall feeling good. Upon his [facility] to [facility] he changes close, made his bed and went for dinner. He reports eating just several bites of his meal when he developed severe, acute abdominal pain with nausea and nonbloody/nonbilious emesis. Patient continues to have some bandlike abdominal pain across the middle of his abdomen. He also reports decreased urine output. In the ER he is afebrile, hemodynamically stable, nontoxic in appearance ER course: Tylenol 1 g IV Normal saline x 1 L Zofran 4 mg IV Discharge Exam GENERAL APPEARANCE NAD, activity normal for age, well developed/ well nourished, no cyanosis, pallor, or diaphoresis. EYES lids/conjunctiva normal. EARS/NOSE/THROAT Mucous membranes moist, nares normal, lips/teeth normal uvula midline without oral pharyngeal erythema, exudate or swelling TMs normal bilaterally. No lymphangitis/lymphedema. HEAD/NECK normocephalic atraumatic, no facial trauma, neck is supple. RESPIRATORY respiratory effort normal, speaks in full sentences, no tripod position, no accessory muscle use. Lungs clear to auscultation without rhonchi, wheezes, rales CARDIAC Regular rate and rhythm, no edema. ABDOMINAL Soft, ND/NT. No evidence of fluid wave. No pulsatile masses on exam, rebound tenderness, Leiva sign or pain over Mcburney's point. MUSCLES/EXTREMITIES No abnormal range of motion, no swelling. SKIN Warm, pink and dry. No rashes, dermatoses, petechiae or lesions. NEUROLOGICAL Speech is clear and appropriate. Normal level of consciousness. Gait and coordination are normal. 5/5 strength in all extremities. PSYCH Normal mood and affect. Judgement/competence is appropriate Discharge Plan Discharge Items [facility] Reason For Visit: ABDOMINAL PAIN, NAUSEA Discharge Diagnosis: abdominal pain Condition on Discharge: Fair Activity: Resume your previous activity Non-emergency contact: Primary Care Provider Call non-emergency contact if: you have any medication questions Follow-up/Referrals: Ashwin HERNANDEZ [Primary Care Provider] - Diet: Regular Addtl Attending Provider Instructions: Follow up with PMD in 2 weeks Pending Studies at Discharge: No Stand-Alone Forms: My [facility] Skilled Items Patient informed of condition?: Yes Discharge Level of Care: Other Communicable Disease: No Discharge Prognosis: Stable Lines: None Urinary Catheter: No Medications and DC Order Prescriptions: New polyethylene glycol 3350 [Miralax] 17 gram/dose powder 17 g PO DAILY Qty: 119 0RF Continued omeprazole 40 mg Capsule,Delayed Release(Dr/Ec) 40 mg PO DAILY lisinopril 40 mg Tablet 40 mg PO DAILY prazosin 1 mg Capsule 1 mg PO HS carbamazepine [Tegretol] 200 mg Tablet 200 mg PO BID amlodipine 10 mg Tablet 10 mg PO QAM Discharge Orders: Discharge Order (Routine); Ordered 03/22/25 Ordered By: Agus Zayas Admission Data Admit Date/Time: 03/16/25 23:42 Attending Provider: Agus Zayas Admit Provider: Rosy Rahman Primary Care Provider: Ashwin HERNANDEZ Other Providers: Rosy Rahman; Caprice Moser Jr; Jamie Pena Hospital Stay Data Consultations 03/16/25 23:31 ED Decision to Admit Stat 03/17/25 07:30 Consult Gastroenterology Routine 03/17/25 10:44 Consult General Surgery Routine Diagnostic Imagining Performed 03/16/25 21:15 CT abd pelvis IV con only Stat Pending Results Patient Have Any Pending Studies at Discharge: No Discharge Instructions Given to Patient (Per Discharging Provider) Follow up with PMD in 2 weeks Total Time Total Time Spent Total Time Spent (In Minutes): 50 Coding Level of Care Code 76434 INP/OBS DISCH >30 MIN Diagnoses Abdominal pain R10.84 Abdominal location: generalized Nausea & vomiting R11.14 Vomiting type: bilious vomiting Elevated lactic acid level R79.89 Elevated troponin R79.89 OLEKSANDR (acute kidney injury) N17.9 HTN (hypertension) I10 GERD (gastroesophageal reflux disease) K21.9
== END 2025-03-22 13:05 ==
LOC: SUATTDRO → ED 20:06 → EDINP 23:42 → SUATTDRO 23:42 → 2E 03-17 01:56 → 2W 03-18 06:00